=== PATIENT | male | born 1945 | race Caucasian/White ===

== ENCOUNTER → 2018-04-27 13:09 | Outpatient (CLI) | payer MEDICARE, OTHER, SELFPAY ==
--- NOTE | 2018-04-27 | DI.NM.S_ITS ---
PROCEDURE: NM SAVANAH PERF SPECT R&S PHARM Rest and pharmacological stress myocardial perfusion SPECT with gated imaging and ejection fraction RADIOPHARMACEUTICAL: 24.7 mCi Tc-99m tetrafosmin IV at rest and 26.5 mCi Tc-99m tetrafosmin IV at peak effect of pharmacological stress. [id number] was performed. INDICATIONS: CHEST DISCOMFORT TECHNIQUE: Radiopharmaceutical was injected at peak stress test, and also at rest. SPECT images were obtained. SPECT myocardial perfusion images were displayed in short axis, horizontal long axis, and vertical long axis views. Gated images were reviewed using [employer]irma[employer] software. COMPARISON: None. CARDIAC STRESS: A pharmacologic stress test was performed under the supervision of an attending staff, using an infusion of lexiscan 0.4mg IV X1. Hemodynamic data: There is normal blood pressure and heart rate response to pharmacologic stress. Symptoms: The patient denied anginal chest pain. EKG: Atrial fibrillation present during the study. No diagnostic changes of ischemia with lexiscan. FINDINGS: Raw data: There is good myocardial uptake of radiotracer. No significant motion artifacts. Left ventricle function: Gated images show global hypokinesis and apical septal akinesis. No transient ischemic dilation. Left ventricle resting end diastolic volume is 223 mL. Left ventricle stress ejection fraction is moderately reduced at 39%; normal range is above 45%. Myocardial perfusion: There is normal distribution of activity in the right and left ventricular myocardium. No fixed or reversible perfusion defects. IMPRESSION: Low risk, normal pharmaceutical stress test from ischemia standpoint. Recommend Echo to determine LV function and wall motion. 1) No perfusion evidence of ischemia/infarction. 2) Dilated left ventricle (end-diastolic volume of 223cc) with moderately reduced systolic function (EF 39%). Apical septum is akinetic and rest of the LV is globally hypokinetic. Recommend echo for more accurate cardiac structure. 3) No ECG evidence of ischemia. Atrial fibrillation present during the entire study. 4) No angina during the study. 5) No prior nuclear stress test available for comparison. Dictated by: Denisha Steward MD on 04/28/2018 at 13:21 Approved by: Denisha Steward MD on 04/28/2018 at 13:26
--- NOTE | 2018-04-27 14:58 | PM.TREADMILL ---
Cardiac Stress Test Report Referral & Results Date Patient Seen: 04/27/18 Requesting provider: Lv Zambrano Indication: AFib Rest ECG: Atrial fibrillation with controlled response and poor R-wave progression Procedure Note: After both written and verbal informed consent the patient had an IV started by the diagnostic imaging RN and then was hooked up to the treadmill monitoring system. The patient was then injected with the Claudia scan material. The Cardiolite was then immediately administered. The patient spent an additional 2-3 minutes exercising upper extremities with squeeze balls. The patient had a normal response to all infused materials. Of note his peak heart rate was in excess of 150. Impression: Await perfusion imaging regarding ischemia Please note: Actual ECG tracings can be found in the PACS system.
== END ==
PROVIDERS: PCP Internal Medicine; Visit Provider Internal Medicine Cardiovascular Disease
DX: R07.89 Other chest pain (principal); I48.91 Unspecified atrial fibrillation
CPT/HCPCS: 78452; 93016; 93017; 93018; A9502; J2785

== ENCOUNTER → 2018-04-28 08:10 | Outpatient (CLI) | payer MEDICARE, OTHER, SELFPAY ==
--- NOTE | 2018-04-28 | DI.ECHO.S_ITS ---
[place] +---------+ Hospital +---------+ : : [address] : : : : [phone] : : : : Phone: [phone] +---------+ Echocardiogram Report + + :Name: DOT KELLY Study Date: 04/28/2018 Height: 72 in : :[facility] Exam Location: [facility] Weight: 268 lb : : Gender: Male BSA: 2.4 m2 : :: 1945 Age: 72 yrs BP: 126/78 mmHg: :Reason For Study: Chest Discomfort : :Ordering Physician: Emmie : :[place] Performed By: Joellen Conti : :Referring: EMMIE DUVALL : + + Interpretation Summary 1) Mildly enlarged left ventricle with mildl concentric hypertrophy and mildly to moderately reduced function (EF about 40%). 2) There is mild to moderate global hypokinesis of the left ventricle. 3) Mildlly enlarged right ventricle with mildly reduced function. 4) The left atrium is severely dilated. 5) Mild to moderate mitral regurgitation. 6) The aortic root is mildly dilated at 4.3cm. 7) Compared to the Echo done 04/07/2013, LVEF has decreased from 65-70% to about 40% on this study. Procedure: A two-dimensional transthoracic echocardiogram with color flow and Doppler was performed. The study quality was technically adequate. Comparison is made with the echocardiogram of 04/07/2013. The patient was in atrial fibrillation with heart rates between 63-95 bpm during the exam. Left Ventricle: The left ventricle is mildly dilated. There is mild concentric left ventricular hypertrophy. Left ventricular ejection fraction is estimated to be 40 +/- 5%. (Difficult to assess ejection fraction due to beat- to-beat variability from atrial fibrillation). There is mild to moderate global hypokinesis of the left ventricle. Diastolic function could not be accurately assessed due to atrial fibrillation. Right Ventricle: The right ventricle is mildly dilated. Right ventricular systolic function is mildly reduced. Atria: The left atrium is severely dilated. The right atrium is mildly dilated. The interatrial septum is intact with no evidence for an atrial septal defect. Mitral Valve: The mitral valve leaflets appear mildly thickened, but open well. There is mild mitral annular calcification. There is mild to moderate mitral regurgitation. Aortic Valve: The aortic valve is trileaflet. The aortic valve is moderately calcified. There is no hemodynamically significant valvular aortic stenosis. There is mild aortic regurgitation. Tricuspid Valve: The tricuspid valve is normal in structure and function. There is mild tricuspid regurgitation. The right ventricular systolic pressure is estimated at 22 mmHg assuming a right atrial pressure of 3 mm Hg. Pulmonic Valve: The pulmonic valve is not well visualized. There is a trace or physiologic amount of pulmonic regurgitation. Great Vessels: The aortic root is mildly dilated. The ascending aorta is normal in size. The IVC is of normal diameter and collapses greater than 50% with a sniff. This suggests a low right atrial pressure of 3 mm Hg. Pericardium/ Pleura There is no pericardial effusion. There is an anterior echo-free space consistent with a fat pad. There is no pleural effusion. MMode/2D Measurements & Calculations LVIDd: 6.0 cm LVOT diam: 2.5 cm LVIDs: 4.4 cm asc Aorta Diam: 4.3 cm FS: 26.2 % Ao Arch Diam (Prox Trans): 3.4 cm IVSd: 1.3 cm LVPWd: 1.4 cm LV helms. diameter/BSA (cm/m^2): 2.5 LV sys. diameter/BSA (cm/m^2): 1.8 LA A2 area: 37.0 cm2 RA long axis: 7.4 cm LA A4 area: 41.0 cm2 RA area: 25.3 cm2 LA length (vol): 7.5 cm RA vol: 73.4 ml LA vol: 171.7 ml RA : 30.4 ml/m2 LA vol index: 71.2 ml/m2 TAPSE: 1.8 cm Doppler Measurements & Calculations Ao V2 max: 167.1 cm/sec LVOT Max Dominic: 102.2 cm/sec Ao V2 mean: 112.4 cm/sec LV V1 max P.2 mmHg Ao max P.2 mmHg LV V1 VTI: 18.8 cm Ao mean P.9 mmHg SHELBIE(I,D): 2.8 cm2 Ao V2 VTI: 33.0 cm SHELBIE(V,D): 3.1 cm2 sev ratio: 0.57 SHELBIE indexed to BSA (cm^2/m^2): 1.2 TR max dominic: 216.0 cm/sec TR max P.7 mmHg Reading Physician:12:24 PM
== END ==
PROVIDERS: PCP Internal Medicine; Visit Provider Internal Medicine Cardiovascular Disease
DX: R07.89 Other chest pain (principal); I08.3 Combined rheumatic disorders of mitral, aortic and tricuspid valves
CPT/HCPCS: 93306

== ENCOUNTER → 2018-09-11 13:49 | Outpatient (CLI) | payer MEDICARE, OTHER, SELFPAY ==
--- NOTE | 2018-09-11 | DI.ECHO.S_ITS ---
[place] +---------+ Hospital +---------+ : : [address] [place] [address] : : : : [phone] : : : : Phone: [phone] +---------+ Echocardiogram Report + + :Name: DOT KELLY Study Date: 09/11/2018 Height: 74 in : :[facility] Exam Location: [facility] Weight: 259 lb : : Gender: Male BSA: 2.4 m2 : :: 1945 Age: 73 yrs BP: 137/60 mmHg: :Reason For Study: DILATED CM : : Performed By: Toño Barclay : :Referring: EMMIE DUVALL : + + Interpretation Summary The left ventricle is mildly dilated. This is decreased compared to the previous study. The ejection fraction is estimated to be 55-60%. Compared to the prior exam, the left ventricular function is improved. The right ventricle is mildly dilated. The right ventricular systolic function is normal. No significant valvular pathology seen. The ascending aorta is moderately enlarged. This is unchanged compared to the previous study. Mild atherosclerotic plaque(s) in the aortic arch. In this study patient is in sinus rhythm. No A. fib seen. Procedure: A two-dimensional transthoracic echocardiogram with color flow and Doppler was performed. The study quality was technically adequate. Comparison is made with the echocardiogram of 04/28/18. The patient was in normal sinus rhythm during the exam. Left Ventricle: There is normal left ventricular wall thickness. The left ventricle is mildly dilated. This is decreased compared to the previous study. The ejection fraction is estimated to be 55-60%. Compared to the prior exam, the left ventricular function is improved. Septal motion is consistent with conduction abnormality. Diastolic parameters suggest a relaxation abnormality of the left ventricle, consistent with probable normal filling pressures. Right Ventricle: The right ventricle is mildly dilated. The right ventricular systolic function is normal. Atria: Both atria are moderately dilated. The left atrium has mildly decreased in size since the prior echo exam. The interatrial septum is intact with no evidence for an atrial septal defect. Mitral Valve: There is mild mitral annular calcification. There is trace mitral regurgitation. Compared to the prior echo study, there has been a decrease in the severity of mitral regurgitation. Aortic Valve: The aortic valve is trileaflet. The aortic valve is moderately calcified. Leaflet mobility is mildly reduced. There is no hemodynamically significant valvular aortic stenosis. There is trace aortic regurgitation. Compared to the prior echo study, there has been a decrease in the severity of aortic regurgitation. Tricuspid Valve: The tricuspid valve is normal in structure and function. Pulmonary artery pressures cannot be estimated because of the lack of a measurable TR jet velocity. There is trace tricuspid regurgitation. Compared to the prior echo exam, there has been a decrease in TR severity. Pulmonic Valve: The pulmonic valve is not well seen, but is grossly normal. There is trace pulmonic regurgitation. Great Vessels: The aortic root is normal size. The ascending aorta is moderately enlarged. This is unchanged compared to the previous study. Mild atherosclerotic plaque(s) in the aortic arch. The pulmonary artery is normal size. The IVC is of normal diameter and collapses greater than 50% with a sniff. This suggests a low right atrial pressure of 3 mm Hg. Pericardium/ Pleura There is no pericardial effusion. There is no pleural effusion. MMode/2D Measurements & Calculations LVIDd: 5.8 cm LVOT diam: 2.5 cm LVIDs: 3.6 cm Ao root diam: 4.2 cm FS: 37.5 % Aortic Jxn: 3.5 cm EPSS: 1.2 cm asc Aorta Diam: 4.3 cm IVSd: 1.1 cm Ao Arch Diam (Prox Trans): 3.2 cm LVPWd: 1.2 cm LV helms. diameter/BSA (cm/m^2): 2.4 LV sys. diameter/BSA (cm/m^2): 1.5 LA dimension: 4.0 cm RA long axis: 6.3 cm LA A2 area: 31.9 cm2 RA area: 27.8 cm2 LA A4 area: 25.7 cm2 RA vol: 103.8 ml LA length (vol): 6.5 cm RA : 42.8 ml/m2 LA vol: 107.6 ml IVC diam: 1.3 cm LA vol index: 44.4 ml/m2 RVD1 (basal): 4.8 cm RVD2 (mid): 4.0 cm Doppler Measurements & Calculations Ao V2 max: 235.0 cm/sec LVOT Max Dominic: 107.5 cm/sec Ao V2 mean: 180.4 cm/sec LV V1 max P.6 mmHg Ao max P.1 mmHg LV V1 VTI: 24.0 cm Ao mean P.8 mmHg SHELBIE(I,D): 2.3 cm2 Ao V2 VTI: 54.0 cm SHELBIE(V,D): 2.3 cm2 sev ratio: 0.44 SHELBIE indexed to BSA (cm^2/m^2): 0.93 MV E max dominic: 66.1 cm/sec PA V2 max: 91.0 cm/sec MV A max dominic: 82.4 cm/sec PA V2 mean: 68.4 cm/sec MV E/A: 0.80 PA mean P.0 mmHg Med Peak E' Dominic: 6.3 cm/sec PA pr(Accel): 44.1 mmHg E/E' med: 10.5 PA Accel Time: 0.08 sec Lat Peak E' Dominic: 8.2 cm/sec E/E' lat: 8.1 E/e' average: 9.3 MV dec time: 0.26 sec SV(LVOT): 121.8 ml Reading Physician:ASHLYN
== END ==
PROVIDERS: PCP Internal Medicine; Visit Provider Internal Medicine Cardiovascular Disease
DX: I42.0 Dilated cardiomyopathy (principal); I70.0 Atherosclerosis of aorta; I77.810 Thoracic aortic ectasia
CPT/HCPCS: 93306

== ENCOUNTER → 2018-11-24 14:41 | Outpatient (CLI) | payer MEDICARE, OTHER, SELFPAY ==
--- NOTE | 2018-12-01 16:22 | PM.PFT.1 ---
Pulmonary Function Test Referral & Results Date Patient Seen: 11/24/18 Requesting provider: Lv Zambrano Indication: R06.09 Results: The spirometry demonstrates an FVC of 4.44 L which is benign % of predicted. The FEV1 was measured at 3.42 L which is 94% of predicted. The FEV1/FVC ratio was 77 which is 105% of predicted. Following the administration of bronchodilator there was no appreciable change. Lung volumes show an SVC of 4.55 L which is 89% of predicted. The diffusing capacity was measured at 29.8 which is 78% of predicted. No hemoglobin value was provided, so no correction for potential anemia could be made, if appropriate. The maximum voluntary ventilation was normal Interpretation: This study demonstrates probably normal spirometry. There is very minimal reduction in diffusing capacity suggesting some element of disease at the capillary alveolar level, less patient is anemic. Clinical correlation suggested
== END ==
PROVIDERS: PCP Internal Medicine; Visit Provider Internal Medicine Cardiovascular Disease
DX: R06.09 Other forms of dyspnea (principal); I42.0 Dilated cardiomyopathy; Z79.899 Other long term (current) drug therapy
CPT/HCPCS: 94060; 94726; 94729

== ENCOUNTER → 2019-05-01 11:01 | Outpatient (CLI) | payer MEDICARE, OTHER, SELFPAY ==
--- NOTE | 2019-05-01 | DI.RAD.S_ITS ---
PROCEDURE: XR CHEST 2V INDICATIONS: On amiodarone therapy TECHNIQUE: 2 views of the chest were acquired. COMPARISON: [facility], , CHEST 1 VIEW, 04/06/2013, 14:28. FINDINGS: Surgical changes and devices: None. Lungs and pleura: Lungs are clear. No pleural effusions or pneumothorax. Mediastinum: Mediastinal contours are normal. Heart size is normal. Bones and chest wall: No suspicious bony abnormalities. Soft tissues appear unremarkable. IMPRESSION: No acute disease Dictated by: Jett Anderson M.D. on 05/01/2019 at 12:04 Approved by: Jett Anderson M.D. on 05/01/2019 at 12:04
== END ==
PROVIDERS: PCP Internal Medicine; Visit Provider Internal Medicine Cardiovascular Disease
DX: Z79.899 Other long term (current) drug therapy (principal)
CPT/HCPCS: 71046

== ENCOUNTER → 2020-01-30 10:53 | Outpatient (CLI) | payer MEDICARE, OTHER, SELFPAY ==
--- NOTE | 2020-01-30 | DI.RAD.S_ITS ---
PROCEDURE: XR CHEST 2V INDICATIONS: Long-term drug therapy TECHNIQUE: 2 views of the chest were acquired. COMPARISON: [facility], , CHEST 1 VIEW, 04/06/2013, 14:28. [facility], , XR CHEST 2V, 05/01/2019, 11:07. FINDINGS: Surgical changes and devices: None. Lungs and pleura: Lungs are clear. No pleural effusions or pneumothorax. Mediastinum: The cardiac contours are within normal limits. The aorta demonstrates calcification and tortuosity. Bones and chest wall: Age-appropriate bony degenerative changes are seen. No suspicious bony abnormalities. Soft tissues appear unremarkable. IMPRESSION: Clear lungs. Dictated by: Mohsen Craft M.D. on 01/30/2020 at 11:03 Approved by: Mohsen Craft M.D. on 01/30/2020 at 11:04
== END ==
PROVIDERS: PCP Internal Medicine; Referring Provider Internal Medicine Cardiovascular Disease; Visit Provider Internal Medicine Cardiovascular Disease
DX: I70.0 Atherosclerosis of aorta (principal); Z79.899 Other long term (current) drug therapy
CPT/HCPCS: 71046

== ENCOUNTER → 2020-07-15 11:34 | Outpatient (CLI) | payer MEDICARE, OTHER, SELFPAY ==
--- NOTE | 2020-07-15 | DI.RAD.S_ITS ---
PROCEDURE: XR CHEST 2V INDICATIONS: AMIODARONE THERAPY TECHNIQUE: 2 views of the chest were acquired. COMPARISON: [facility], CR, XR CHEST 2V, 01/30/2020, 9:54. [facility], CR, XR CHEST 2V, 05/01/2019, 11:07. FINDINGS: Surgical changes and devices: None. Lungs and pleura: Lungs are clear. No pleural effusions or pneumothorax. Mediastinum: Mediastinal contours are normal. Heart size is normal. Bones and chest wall: No suspicious bony abnormalities. Soft tissues appear unremarkable. IMPRESSION: Normal for age, no evidence of amiodarone induced pulmonary fibrosis.. Dictated by: Walter Salas M.D. on 07/15/2020 at 12:32 Approved by: Walter Salas M.D. on 07/15/2020 at 12:33
== END ==
PROVIDERS: PCP Internal Medicine; Referring Provider Internal Medicine Cardiovascular Disease; Visit Provider Internal Medicine Cardiovascular Disease
DX: Z79.899 Other long term (current) drug therapy (principal)
CPT/HCPCS: 71046

== ENCOUNTER → 2021-01-09 11:28 | Outpatient (CLI) | payer OTHER, SELFPAY ==
--- NOTE | 2021-01-09 | DI.RAD.S_ITS ---
PROCEDURE: XR CHEST 2V INDICATIONS: Other intermediate (current) drug therapy TECHNIQUE: 2 views of the chest were acquired. COMPARISON: [facility], CR, XR CHEST 2V, 07/15/2020, 11:52. FINDINGS: Surgical changes and devices: None. Lungs and pleura: Lungs are clear. No pleural effusions or pneumothorax. Mediastinum: Mediastinal contours are normal. Heart size is normal. Bones and chest wall: No suspicious bony abnormalities. Soft tissues appear unremarkable. IMPRESSION: No acute cardiopulmonary disease and no pulmonary fibrosis identified. Dictated by: Bear Hart [facility] Interpreted: Genevieve Ramos MD on 01/09/2021 at 14:38 Transcribed by: ARLEN on 01/09/2021 at 14:39 Approved by: Genevieve Ramos M.D. on 01/09/2021 at 17:07
== END ==
PROVIDERS: PCP Internal Medicine; Referring Provider Internal Medicine Cardiovascular Disease; Visit Provider Internal Medicine Cardiovascular Disease
DX: Z79.899 Other long term (current) drug therapy (principal)
CPT/HCPCS: 71046

== ENCOUNTER → 2021-02-16 08:34 | Outpatient (CLI) | payer MEDICARE, OTHER, SELFPAY ==
--- NOTE | 2021-02-16 08:40 | DI.ECHO.S_ITS ---
[place] +---------+ Hospital +---------+ : : [address] : [place] : : : : [id number] : : : : Phone: [phone] +---------+ Echocardiogram Report + + :Name: DOT KELLY Study Date: 02/16/2021 Height: 74 in : :[facility] ReadingLocation: Weight: 295 lb : : Gender: Male BSA: 2.6 m2 : :: 1945 Age: 75 yrs BP: 159/84 mmHg: :Reason For Study: ATRIAL FIBRILLATION : :Ordering Physician: : :EMMIE DUVALL Performed By: Bushra Nam : :Referring: EMMIE DUVALL : + + Interpretation Summary The left ventricle is mildly dilated. The ejection fraction is estimated to be 55-60%. There has been no significant change in LVEF since the previous exam. The right ventricle is borderline dilated. The right ventricular systolic function is normal. The aortic valve is moderately calcified. There is moderately reduced leaflet mobility. The peak aortic velocity is 3.16 m/sec. The aortic valve mean gradient is 19 mmHg. SHELBIE(V,D): 2.1 cm2, LVOT diameter measured at 2.7cm which could be underestimated SHELBIE measurement. sev ratio: 0.40 There is mild to moderate aortic stenosis. Compared to the prior echo study, there has been an increase in the severity of aortic stenosis. Overall no critical aortic stenosis. There is mild aortic regurgitation. The ascending aorta is moderately enlarged. 4.2 cm in diameter. Previously it was 4.3 cm. Mild atherosclerotic plaque(s) in the aortic arch. There is mild luminal irregularity and echogenicity in the abdominal aorta, suggestive of aortic atherosclerotic disease. Procedure: A two-dimensional transthoracic echocardiogram with color flow and Doppler was performed. The study quality was technically adequate. Comparison is made with the echocardiogram of 09/11/2018. The patient was in sinus rhythm with heart rates between 67-73 bpm during the exam. Left Ventricle: There is mild concentric left ventricular hypertrophy. The left ventricle is mildly dilated. There is no thrombus. The ejection fraction is estimated to be 55-60%. There has been no significant change since the previous exam. Septal motion is consistent with conduction abnormality. Diastolic parameters suggest a relaxation abnormality of the left ventricle, consistent with probable normal filling pressures. Right Ventricle: The right ventricle is borderline dilated. The right ventricular systolic function is normal. Atria: The left atrium is mildly dilated. The left atrium has mildly decreased in size since the prior echo exam. Right atrial size is normal. Mitral Valve: The mitral valve leaflets appear borderline thickened, but open well. There is mild mitral annular calcification. There is trace mitral regurgitation. Aortic Valve: The aortic valve is moderately calcified. There is moderately reduced leaflet mobility. The aortic valve is not well visualized. The peak aortic velocity is 3.16 m/sec. The aortic valve mean gradient is 19 mmHg. There is mild to moderate aortic stenosis. Compared to the prior echo study, there has been an increase in the severity of aortic stenosis. There is mild aortic regurgitation. Tricuspid Valve: The tricuspid valve is normal. There is trace tricuspid regurgitation. Pulmonary artery pressures cannot be estimated because of the lack of a measurable TR jet velocity but the IVC suggests a CVP of around 3 mmHg. Pulmonic Valve: The pulmonic valve is not well visualized. There is trace pulmonic regurgitation. Great Vessels: The aortic root is borderline dilated. The ascending aorta is moderately enlarged. Mild atherosclerotic plaque(s) in the aortic arch. There is mild luminal irregularity and echogenicity in the abdominal aorta, suggestive of aortic atherosclerotic disease. The IVC is of normal diameter and collapses greater than 50% with a sniff. This suggests a low right atrial pressure of 3 mm Hg. Pericardium/ Pleura There is no pericardial effusion. There is no pleural effusion. MMode/2D Measurements & Calculations LVIDd: 5.9 cm LVOT diam: 2.7 cm LVIDs: 4.2 cm Ao root diam: 4.0 cm FS: 27.8 % asc Aorta Diam: 4.2 cm IVSd: 1.2 cm Ao Arch Diam (Prox Trans): 3.4 cm LVPWd: 1.3 cm LV helms. diameter/BSA (cm/m^2): 2.3 LV sys. diameter/BSA (cm/m^2): 1.7 LA A2 area: 30.5 cm2 RA long axis: 4.8 cm LA A4 area: 21.4 cm2 RA area: 21.1 cm2 LA length (vol): 5.6 cm RA vol: 79.3 ml LA vol: 98.4 ml RA : 30.9 ml/m2 LA vol index: 38.4 ml/m2 IVC diam: 1.4 cm RVD1 (basal): 4.1 cm TAPSE: 2.1 cm Doppler Measurements & Calculations Ao V2 max: 315.9 cm/sec LVOT Max Dominic: 111.5 cm/sec Ao V2 mean: 199.6 cm/sec LV V1 max P.0 mmHg Ao max P.9 mmHg LV V1 VTI: 22.6 cm Ao mean P.1 mmHg SHELBIE(I,D): 2.3 cm2 Ao V2 VTI: 56.5 cm SHELBIE(V,D): 2.1 cm2 sev ratio: 0.40 SHELBIE indexed to BSA (cm^2/m^2): 0.91 MV E max dominic: 55.2 cm/sec PA pr(Accel): 20.8 mmHg MV A max dominic: 58.3 cm/sec MV E/A: 0.95 Med Peak E' Dominic: 10.3 cm/sec E/E' med: 5.4 Lat Peak E' Dominic: 9.7 cm/sec E/E' lat: 5.7 E/e' average: 5.5 MV dec time: 0.21 sec SV(LVOT): 131.3 ml Reading Physician:04:33 PM
== END ==
PROVIDERS: PCP Internal Medicine; Referring Provider Internal Medicine Cardiovascular Disease; Visit Provider Internal Medicine Cardiovascular Disease
DX: I35.2 Nonrheumatic aortic (valve) stenosis with insufficiency (principal); I77.89 Other specified disorders of arteries and arterioles; I48.91 Unspecified atrial fibrillation; I42.0 Dilated cardiomyopathy
CPT/HCPCS: 93306

== ENCOUNTER → 2021-03-09 11:02 | Outpatient (CLI) | payer MEDICARE, OTHER, SELFPAY ==
[2021-03-09 11:46] LABS: COVID19 -Nasal RAPID Negative (Negative)
== END ==
PROVIDERS: PCP Internal Medicine; Referring Provider Internal Medicine Cardiovascular Disease; Visit Provider Internal Medicine Cardiovascular Disease
DX: Z79.899 Other long term (current) drug therapy (principal)
CPT/HCPCS: 87635; C9803

== ENCOUNTER → 2021-03-09 11:03 | Outpatient (CLI) | payer MEDICARE, OTHER, SELFPAY ==
--- NOTE | 2021-03-11 11:45 | PM.PFT.1 ---
Pulmonary Function Test Referral & Results Date Patient Seen: 03/09/21 Requesting provider: Lv Zambrano Results: The spirometry demonstrates an FVC of 3.89 L which is 80% of predicted. The FEV1 was measured at 3.02 L which is 85% of predicted. The FEV1/FVC ratio was 78 which is 107% of predicted. Following the administration of bronchodilator there was no significant change. Lung volumes show an SVC of 4.17 L which is 82% of predicted. The diffusing capacity was measured at 25.97 which is 68% of predicted. No hemoglobin value was provided, so no correction for potential anemia could be made, if appropriate. The maximum voluntary ventilation was minimally reduced Interpretation: This study demonstrates perhaps very mild obstructive lung disease based on reduction FEV1 although FEV1/FVC ratio was preserved and there is essentially no evidence of benefit following bronchodilator. There is a mild reduction in SVC suggesting mild restrictive lung disease which may explain minimal reduction in FEV1 as well There is a more significant reduction in diffusing capacity suggesting significant disease at the capillary alveolar level Compared to PFTs performed in November 2018, current study shows that spirometry is unchanged essentially, there is a minimal reduction in diffusing capacity compared to previous study however. Clinical correlation suggested
== END ==
PROVIDERS: PCP Internal Medicine; Referring Provider Internal Medicine Cardiovascular Disease; Visit Provider Internal Medicine Cardiovascular Disease
DX: Z79.899 Other long term (current) drug therapy (principal); I10 Essential (primary) hypertension; Z20.822 Contact with and (suspected) exposure to COVID-19; Z87.891 Personal history of nicotine dependence; J98.8 Other specified respiratory disorders
CPT/HCPCS: 87635; 94060; 94726; 94729; C9803

== ENCOUNTER → 2021-08-26 12:37 | Outpatient (CLI) | payer MEDICARE, OTHER, SELFPAY ==
[2021-08-26 13:39] LABS: COVID19 -Nasal RAPID Negative (Negative)
== END ==
PROVIDERS: PCP Internal Medicine; Referring Provider Internal Medicine; Visit Provider Internal Medicine
DX: Z20.822 Contact with and (suspected) exposure to COVID-19 (principal)
CPT/HCPCS: 87635; C9803

== ENCOUNTER → 2021-08-27 06:54 | Outpatient (CLI) | payer MEDICARE, OTHER, SELFPAY ==
--- NOTE | 2021-08-31 09:03 | PM.PFT.1 ---
Pulmonary Function Test Referral & Results Date Patient Seen: 08/27/21 Requesting provider: Lv Zambrano Results: The spirometry demonstrates an FVC of 3.8 L which is 80% of predicted. The FEV1 was measured at 3.07 L which is 87% of predicted. The FEV1/FVC ratio was 79 which is 109% of predicted. Following the administration of bronchodilator there was to 44% improvement in FEF 25-75% Lung volumes show an SVC of 4.18 L which is 82% of predicted. The diffusing capacity was measured at 25.29 which is 67% of predicted. The maximum voluntary ventilation was normal Interpretation: This study demonstrates probably normal spirometry although there is minimal reduction in lung volumes There is also mild reduction in diffusing capacity suggesting element of disease at the capillary alveolar level Compared to PFTs performed in February 2021, current study is essentially unchanged
== END ==
PROVIDERS: PCP Internal Medicine; Referring Provider Internal Medicine Cardiovascular Disease; Visit Provider Internal Medicine Cardiovascular Disease
DX: J44.9 Chronic obstructive pulmonary disease, unspecified (principal); Z79.899 Other long term (current) drug therapy
CPT/HCPCS: 94060; 94726; 94729

== ENCOUNTER → 2022-02-12 10:58 | Outpatient (CLI) | payer MEDICARE, OTHER, SELFPAY ==
[2022-02-12 12:03] LABS: COVID19 -Nasal RAPID Negative (Negative)
== END ==
PROVIDERS: PCP Internal Medicine; Referring Provider Internal Medicine; Visit Provider Internal Medicine
DX: Z20.822 Contact with and (suspected) exposure to COVID-19 (principal)
CPT/HCPCS: 87635; C9803

== ENCOUNTER → 2022-02-12 11:04 | Outpatient (CLI) | payer MEDICARE, OTHER, SELFPAY ==
--- NOTE | 2022-02-17 08:19 | PM.PFT.1 ---
Pulmonary Function Test Referral & Results Date Patient Seen: 02/12/22 Requesting provider: Lv Zambrano Results: The spirometry demonstrates an FVC of 3.63 L which is 75% of predicted. The FEV1 was measured at 2.84 L which is 81% of predicted. The FEV1/FVC ratio was 78 which is 108% of predicted. Following the administration of bronchodilator there was a 20% improvement in FEF 25-75%. Lung volumes show an SVC of 3.91 L which is 77% of predicted. The diffusing capacity was measured at 27.38 which is 72% of predicted. No hemoglobin value was provided, so no correction for potential anemia could be made, if appropriate. The maximum voluntary ventilation was minimally reduced Interpretation: This study demonstrates minimally reduced FEV1 although FEV1/FVC ratio is preserved. There is some limited evidence of benefit following bronchodilator based on improvement in FEF 25-75% as above. This altogether is consistent with the possibility of very mild obstructive lung disease. Lung volumes are minimally reduced based on reduction SVC. This is consistent with minimal restrictive lung disease There is a mild reduction in diffusing capacity suggesting some element of disease at the capillary alveolar level Altogether this would be consistent with a diagnosis of very mild COPD Compared to PFTs performed in August 2021, current study is essentially unchanged
== END ==
PROVIDERS: PCP Internal Medicine; Referring Provider Internal Medicine Cardiovascular Disease; Visit Provider Internal Medicine Cardiovascular Disease
DX: Z79.899 Other long term (current) drug therapy (principal); Z87.891 Personal history of nicotine dependence; Z20.822 Contact with and (suspected) exposure to COVID-19; J98.8 Other specified respiratory disorders
CPT/HCPCS: 87635; 94060; 94726; 94729; C9803

== ENCOUNTER → 2022-09-27 12:04 | Outpatient (CLI) | payer MEDICARE, OTHER, SELFPAY ==
--- NOTE | 2022-09-27 | DI.ECHO.S_ITS ---
[facility] +---------+ [facility] +---------+ : : [address] : [address] [address] : : : : [id number] : : : : Phone: [phone]---------+ Echocardiogram Report + + :Name: DOT KELLY Study Date: 09/27/2022 Height: 74 in : :[facility] : Weight: 295 lb : : Gender: Male BSA: 2.6 m2 : :: 1945 Age: 77 yrs BP: 172/85 mmHg: :Reason For Study: Nonrheumatic aortic stenosis : :Ordering Physician: Emmie : :Kiko Duvall Performed By: Bushra Marte : :Referring: EMMIE DUVALL : + + Interpretation Summary 1) Moderately enlarged left ventricle with mildly increased left ventricular thickness and normal systolic function (EF 55-60%). 2) There are no obvious focal wall motion abnormalities noted but poor endocardial definition reduces the sensitivity for the detection of such. 3) Mildly to moderate enlarged right ventricle with normal function. 4) There is moderate aortic stenosis (valve area 1.2cm2, mean gradient 23mmHg, severity ratio 0.3). 5) Hypertension present during the study (BP 172/85mmHg). 6) Compared to the Echo done 02/16/2021, LV is more enlarged on this study. Procedure: A two-dimensional transthoracic echocardiogram with color flow and Doppler was performed. The study quality was technically difficult. The patient was in sinus rhythm with heart rates between 60-68 bpm during the exam. Left Ventricle: The left ventricle is moderately dilated. Left ventricular wall thickness is mildly increased. The ejection fraction is estimated to be 55-60%. There are no obvious focal wall motion abnormalities noted but poor endocardial definition reduces the sensitivity for the detection of such. Diastolic parameters suggest a relaxation abnormality of the left ventricle, consistent with probable normal filling pressures. Right Ventricle: The right ventricle is mild to moderately dilated. Right ventricular size has increased since the prior echo exam. The right ventricular systolic function is normal. Atria: The left atrium is moderately dilated. The right atrium is mild to moderately dilated. There is no Doppler evidence for an interatrial shunt. Mitral Valve: The mitral valve leaflets are mildly calcified. There is mild mitral regurgitation. Aortic Valve: The aortic valve is trileaflet. The aortic valve is moderately calcified. There is moderately reduced leaflet mobility. There is moderate aortic stenosis. There has been no significant change since the previous study. There is trace aortic regurgitation. Tricuspid Valve: The tricuspid valve is normal in structure and function. No tricuspid regurgitation. Comparison with the previous study is not possible because this was unable to be assessed on the previous study. Pulmonic Valve: The pulmonic valve leaflets are thin and pliable; valve motion is normal. There is a trace or physiologic amount of pulmonic regurgitation. Great Vessels: The aortic root is borderline dilated. The ascending aorta is mildly enlarged. The inferior vena cava was not well visualized. Pericardium/ Pleura There is no pericardial effusion. There is no pleural effusion. MMode/2D Measurements & Calculations LVIDd: 6.4 cm LVOT diam: 2.2 cm LVIDs: 4.3 cm Ao root diam: 4.2 cm FS: 32.8 % asc Aorta Diam: 4.1 cm EPSS: 0.90 cm IVSd: 1.4 cm LVPWd: 1.1 cm LV helms. diameter/BSA (cm/m^2): 2.5 LV sys. diameter/BSA (cm/m^2): 1.7 LA dimension: 4.3 cm RA long axis: 6.1 cm LA A2 area: 29.4 cm2 RA area: 26.0 cm2 LA A4 area: 35.1 cm2 RA vol: 94.0 ml LA length (vol): 6.7 cm RA : 36.7 ml/m2 LA vol: 130.5 ml IVC diam: 2.9 cm LA vol index: 50.9 ml/m2 RVD1 (basal): 5.2 cm LVLs ap4: 7.4 cm RVD2 (mid): 3.5 cm LVLd ap2: 9.1 cm RV Mid_phl: 3.5 cm LVLs ap2: 6.1 cm TAPSE_phl: 2.4 cm Doppler Measurements & Calculations Ao V2 max: 330.0 cm/sec LVOT Max Dominic: 92.0 cm/sec Ao V2 mean: 227.0 cm/sec LV V1 max P.4 mmHg Ao max P.0 mmHg LV V1 VTI: 23.2 cm Ao mean P.0 mmHg SHELBIE(I,D): 1.2 cm2 Ao V2 VTI: 76.5 cm SHELBIE(V,D): 1.1 cm2 sev ratio: 0.30 SHELBIE indexed to BSA (cm^2/m^2): 0.45 MV E max dominic: 83.6 cm/sec PA V2 max: 91.6 cm/sec MV A max dominic: 87.4 cm/sec PA V2 mean: 63.9 cm/sec MV E/A: 0.96 PA mean P.0 mmHg Med Peak E' Dominic: 7.1 cm/sec E/E' med: 11.8 Lat Peak E' Dominic: 9.8 cm/sec E/E' lat: 8.6 E/e' average: 10.2 MV dec time: 0.23 sec MVA(VTI): 2.5 cm2 MV V2 mean: 65.6 cm/sec SV(LVOT): 88.2 ml MV mean P.0 mmHg MV V2 VTI: 35.0 cm AV VR_phl: 0.28 MV P1/2t-pr_phl: 68.0 msec SHELBIE(VTI)/BSA_phl: 0.45 Reading Physician:02:23 PM
== END ==
PROVIDERS: PCP Internal Medicine; Referring Provider Internal Medicine Cardiovascular Disease; Visit Provider Internal Medicine Cardiovascular Disease
DX: I08.0 Rheumatic disorders of both mitral and aortic valves (principal); I77.89 Other specified disorders of arteries and arterioles
CPT/HCPCS: 93306

== ENCOUNTER → 2022-09-29 09:01 | Outpatient (CLI) | payer MEDICARE, OTHER, SELFPAY ==
--- NOTE | 2022-10-01 07:39 | PM.PFT.1 ---
Pulmonary Function Test Referral & Results Date Patient Seen: 09/29/22 Requesting provider: Lv Zambrano Results: The spirometry demonstrates an FVC of 3.22 L which is 67% of predicted. The FEV1 was measured at 2.51 L which is 72% of predicted. The FEV1/FVC ratio was 78 which is 108% of predicted. Following the administration of bronchodilator there was 11% improvement in FEV1 and a 78% improvement in FEF 25-75%. Lung volumes show an SVC of 3.87 L which is 77% of predicted. The diffusing capacity was measured at 25.06 which is 66% of predicted. The maximum voluntary ventilation was normal Interpretation: This study demonstrates probably mild to moderate obstructive lung disease based on reduction FEV1. There is some evidence of benefit following bronchodilator particularly small airway flow as noted above based on improvement in FEF 25-75% There is a mild reduction in lung volumes suggesting mild restrictive lung disease is also present in this may explain some of the abnormality of the FEV1 above There is a [id number]-[id number] reduction diffusing capacity suggesting element of disease at the capillary alveolar level Compared to PFTs performed in January 2022, current study shows decline in FEV1 and slight decline in diffusing capacity Clinical correlation suggested
== END ==
PROVIDERS: PCP Internal Medicine; Referring Provider Internal Medicine Cardiovascular Disease; Visit Provider Internal Medicine Cardiovascular Disease
DX: Z79.899 Other long term (current) drug therapy (principal); Z87.891 Personal history of nicotine dependence; J98.8 Other specified respiratory disorders
CPT/HCPCS: 94060; 94726; 94729

== ENCOUNTER → 2023-05-06 11:23 | Outpatient (CLI) | payer MEDICARE, OTHER, SELFPAY | PROVIDERS: PCP Internal Medicine; Referring Provider Internal Medicine Cardiovascular Disease; Visit Provider Internal Medicine Cardiovascular Disease | DX: Z79.899 Other long term (current) drug therapy (principal); Z87.891 Personal history of nicotine dependence; J98.8 Other specified respiratory disorders | CPT/HCPCS: 94060; 94726; 94729 ==

== ENCOUNTER → 2023-07-15 13:24 | Outpatient (CLI) | payer MEDICARE, OTHER, SELFPAY ==
--- NOTE | 2023-07-15 | DI.ECHO.S_ITS ---
[place] +---------+ Hospital +---------+ : : [address] : [place] [address] : : : : [phone] : : : : Phone: [phone]---------+ Echocardiogram Report + + :Name: DOT KELLY Study Date: 07/15/2023 Height: 74 in : :[facility] ReadingLocation: Weight: 295 lb : : Gender: Male BSA: 2.6 m2 : :: 1945 Age: 78 yrs BP: 180/89 mmHg: :Reason For Study: AORTIC VALVE STENOSIS : :Ordering Physician: JADIEL, : :EMMIE Performed By: Bushra Nam : :Referring: EMMIE DUVALL : + + Interpretation Summary The left ventricle is moderately dilated. The ejection fraction is estimated to be 55-60%. Diastolic function could not be accurately assessed due to contradictory data. The left atrium is moderately dilated. The right ventricle is normal in size and function. There is moderate aortic stenosis. The ascending aorta is mildly enlarged, 4.0 cm. Compared to the prior study dated 09/27/2022, there is been a slight increase in the aortic valve gradient however the degree of stenosis is still moderate. Procedure: A two-dimensional transthoracic echocardiogram with color flow and Doppler was performed. The study quality was technically adequate. Comparison is made with the echocardiogram of 09/27/2022. The patient was in sinus rhythm with heart rates between 68-76 bpm during the exam. Left Ventricle: The left ventricle is moderately dilated. There is mild concentric left ventricular hypertrophy. The ejection fraction is estimated to be 55-60%. Diastolic function could not be accurately assessed due to contradictory data. Right Ventricle: The right ventricle is normal in size and function. Atria: The left atrium is moderately dilated. The right atrium is borderline dilated. There is no Doppler evidence for an interatrial shunt. Mitral Valve: There is mild mitral annular calcification. The mitral valve leaflets are mildly calcified. There is trace mitral regurgitation. Aortic Valve: The aortic valve is moderately calcified. The peak aortic velocity is 3.5 m/sec. The aortic valve mean gradient is 29 mmHg. The dimensionles ineex is 0.37. There is moderate aortic stenosis. No aortic regurgitation is present. Tricuspid Valve: The tricuspid valve is normal in structure and function. There is trace tricuspid regurgitation. Pulmonary artery pressures cannot be estimated because of the lack of a measurable TR jet velocity. Pulmonic Valve: The pulmonic valve is not well visualized. There is no pulmonic valvular regurgitation. Great Vessels: The aortic root is borderline dilated. The ascending aorta is mildly enlarged. The inferior vena cava was not visualized. Pericardium/ Pleura There is no pericardial effusion. There is no pleural effusion. MMode/2D Measurements & Calculations LVIDd: 6.5 cm LVOT diam: 2.5 cm LVIDs: 4.8 cm Ao root diam: 4.1 cm FS: 26.7 % asc Aorta Diam: 4.0 cm IVSd: 1.1 cm Ao Arch Diam (Prox Trans): 3.1 cm LVPWd: 1.2 cm LV helms. diameter/BSA (cm/m^2): 2.5 LV sys. diameter/BSA (cm/m^2): 1.9 LA A2 area: 35.2 cm2 RA long axis: 6.0 cm LA A4 area: 28.6 cm2 RA area: 21.6 cm2 LA length (vol): 6.8 cm RA vol: 65.7 ml LA vol: 126.3 ml RA : 25.6 ml/m2 LA vol index: 49.3 ml/m2 RVD1 (basal): 3.8 cm RVD2 (mid): 2.5 cm TAPSE: 1.7 cm Doppler Measurements & Calculations Ao V2 max: 345.1 cm/sec LVOT Max Dominic: 114.2 cm/sec Ao V2 mean: 230.9 cm/sec LV V1 max P.2 mmHg Ao max P.9 mmHg LV V1 VTI: 25.9 cm Ao mean P.6 mmHg SHELBIE(I,D): 1.8 cm2 Ao V2 VTI: 69.9 cm SHELBIE(V,D): 1.6 cm2 sev ratio: 0.37 SHELBIE indexed to BSA (cm^2/m^2): 0.68 MV E max dominic: 86.9 cm/sec PA V2 max: 132.0 cm/sec MV A max dominic: 87.6 cm/sec PA V2 mean: 86.8 cm/sec MV E/A: 0.99 PA mean P.4 mmHg Med Peak E' Dominic: 12.0 cm/sec PA pr(Accel): 41.3 mmHg E/E' med: 7.3 Lat Peak E' Dominic: 12.9 cm/sec E/E' lat: 6.7 E/e' average: 7.0 MV dec time: 0.28 sec SVLVOT): 122.6 ml Reading Physician:03:23 PM
== END ==
PROVIDERS: PCP Internal Medicine; Referring Provider Internal Medicine Cardiovascular Disease; Visit Provider Internal Medicine Cardiovascular Disease
DX: I35.0 Nonrheumatic aortic (valve) stenosis (principal); I51.7 Cardiomegaly
CPT/HCPCS: 93306

== ENCOUNTER → 2023-11-03 11:23 | Outpatient (CLI) | payer MEDICARE, OTHER, SELFPAY | LOC: RESP 11:24 | PROVIDERS: PCP Internal Medicine; Referring Provider Internal Medicine Cardiovascular Disease; Visit Provider Internal Medicine Cardiovascular Disease | DX: Z79.899 Other long term (current) drug therapy (principal); Z87.891 Personal history of nicotine dependence; J98.8 Other specified respiratory disorders | CPT/HCPCS: 94060; 94726; 94729 ==

== ENCOUNTER → 2024-03-01 12:01 | Outpatient (CLI) | payer MEDICARE, OTHER, SELFPAY ==
--- NOTE | 2024-03-01 | DI.RAD.S_ITS ---
PROCEDURE: XR FOOT LT MIN 3V INDICATIONS: CELLULITIS TECHNIQUE: 3 views of the foot were acquired. COMPARISON: None. FINDINGS: Bones: Mild subchondral lucency at the base of the 2nd and 3rd proximal phalanx, favoring degenerative. No acute fracture or dislocation. No cortical erosion or periosteal thickening to suggest osteomyelitis. Soft tissues: No tibiotalar joint effusion. Achilles tendon appears normal. IMPRESSION: No radiographic finding to suggest osteomyelitis. Further evaluation with MRI can be considered if clinically indicated. Dictated by: Hetal Degroot M.D. on 03/01/2024 at 18:04 Approved by: Hetal Degroot M.D. on 03/01/2024 at 18:08
--- NOTE | 2024-03-01 | DI.RAD.S_ITS ---
PROCEDURE: XR FOOT RT MIN 3V INDICATIONS: CELLULITIS TECHNIQUE: 3 views of the foot were acquired. COMPARISON: None. FINDINGS: Bones: Small lucency at the plantar calcaneus, nonspecific. Osteomyelitis cannot be excluded. Mild degenerative change of the midfoot. No acute fracture or dislocation. IMPRESSION: Small lucency at the plantar calcaneus, nonspecific. Osteomyelitis cannot be excluded if there is adjacent soft tissue ulceration/wound. Recommend correlation physical exam. Dictated by: Hetal Degroot M.D. on 03/01/2024 at 18:08 Approved by: Hetal Degroot M.D. on 03/01/2024 at 18:10
== END ==
PROVIDERS: PCP Internal Medicine; Referring Provider Student in an Organized Health Care Education/Training Program; Visit Provider Student in an Organized Health Care Education/Training Program
DX: L03.115 Cellulitis of right lower limb (principal); L03.116 Cellulitis of left lower limb
CPT/HCPCS: 73630

== ENCOUNTER 2024-03-07 12:50 | Emergency (ER) | payer MEDICARE, OTHER, SELFPAY ==
[2024-03-07 13:04] VITALS: BP 156/71; PULSE 75; RESP 18; TEMP 38.1; O2SAT 92; BMI 37.8
--- NOTE | 2024-03-07 13:27 | ED_ITS ---
HPI - Wound/Laceration <Michael Regan PA-C - Last Filed: 03/07/24 15:27> General Chief Complaint: Wound/Laceration Stated Complaint: Foot Infection Time Seen by Provider: 03/07/24 13:27 History of Present Illness HPI narrative: This is a 78-year-old male presents to the emergency department due to concerns of worsening bilateral foot infection. He states that he has had bilateral chronic open wounds to the bilateral feet flu last couple of months. He was seen by his primary care provider about a week ago and was placed on Keflex and recommended follow up with wound care. He was not follow up with the Wound Care but has been taking Keflex as prescribed. Patient was given a concerned as he states that he had fever and chills onset this morning. Took Tylenol prior to arrival. Denies any chest pain, shortness of breath, or any other concerning signs or symptoms. Related Data Home Medications Medication Instructions Recorded Confirmed potassium chloride 20 mEq oral 20 meq PO Q DAY ##0 05/10/11 packet atorvastatin 20 mg tablet (Lipitor) 20 mg PO HS ##0 09/13/12 triamterene 75 1 tab PO QDAY ##0 09/13/12 mg-hydrochlorothiazide 50 mg tablet (Maxzide) ASCORBIC ACID (VITAMIN C) 500 mg PO QDAY ##0 04/05/13 [ATENOLOL] 50 mg PO HS ##0 04/05/13 [IRON] 47.5 mg PO QDAY ##0 04/05/13 amlodipine 10 mg tablet (Norvasc) 10 mg PO HS ##0 04/05/13 furosemide 20 mg tablet 20 mg PO QDAYP PRN ##0 04/05/13 gabapentin 600 mg tablet 300 mg PO BID ##0 04/05/13 (Neurontin) vit C,N-Rw-tzlxho-lutein-zeaxan 60 1 cap PO QDAY ##0 04/05/13 mg-13.5 mg-15 mg-2 mg-6 mg capsule (Ocuvite Lutein and Zeaxanthin) Allergies Allergy/AdvReac Type Severity Reaction Status Date / Time No Known Drug Allergies Allergy Verified 03/07/24 13:12 Review of Systems <Michael Regan PA-C - Last Filed: 03/07/24 15:27> Review of Systems Narrative: GENERAL: Reports fevers and chills Denies , fatigue, malaise, , sweats. HEENT: Denies sinus pain, ear pain, sore throat, difficulty swallowing, dizziness. RESPIRATORY: Denies dyspnea, cough, wheezing, hemoptysis, sputum. CARDIOVASCULAR: Denies chest pain, palpitations, orthopnea, edema, GASTROINTESTINAL: Denies nausea, vomiting, abdominal pain, diarrhea, constipation, melena. : Denies dysuria, frequency, incontinence, hematuria, urinary retention. MUSCULOSKELETAL: denies weakness, joint pain, or bony pain SKIN: Chronic bilateral wounds to the feet NEUROLOGIC: Denies weakness, headache, numbness, change in speech, confusion, seizures, incoordination. PSYCHIATRIC: No concerning psychosocial issues. 12 point review of systems is negative except for those stated above Patient History <Michael Regan PA-C - Last Filed: 03/07/24 15:27> Social History Smoking Status: Former smoker Smoking Status: Former smoker alcohol intake frequency: a few times a week Alcohol type: hard liquor Substance Use Type: does not use Exam <Michael Regan PA-C - Last Filed: 03/07/24 15:27> Narrative Exam Narrative: GENERAL: Well-developed patient, in mild distress. HEAD: Atraumatic. Normocephalic. EYES: Pupils equal round and reactive. Extraocular motions intact. No scleral icterus. No injection or drainage. ENT: Nose without bleeding, purulent drainage. Throat without erythema, tonsillar hypertrophy or exudate. Airway patent. NECK: Trachea midline. Non tender EXTREMITIES: No edema or joint tenderness. NEURO: AOx3. SKIN: Erythema affecting the bilateral feet. Appearing to be chronic wounds with some yellow crusting affecting them throughout the feet. Neurovascularly intact throughout. Initial Vital Signs Initial Vital Signs: Vital Signs Temperature 100.6 F H 03/07/24 13:04 Pulse Rate 75 03/07/24 13:04 Respiratory Rate 18 03/07/24 13:04 Blood Pressure 156/71 H 03/07/24 13:04 Pulse Oximetry 92 03/07/24 13:04 Oxygen Delivery Method Room Air 03/07/24 13:04 <Venessa Infante DO - Last Filed: 03/17/24 07:25> Initial Vital Signs Initial Vital Signs: Vital Signs Temperature 100.6 F H 03/07/24 13:04 Pulse Rate 75 03/07/24 13:04 Respiratory Rate 18 03/07/24 13:04 Blood Pressure 156/71 H 03/07/24 13:04 Pulse Oximetry 92 03/07/24 13:04 Oxygen Delivery Method Room Air 03/07/24 13:04 Course <Michael Regan PA-C - Last Filed: 03/07/24 15:27> Orders Ordered: Discontinued Medications Ondansetron HCl (Ondansetron 4 Mg/2 Ml Inj) 4 mg IV NOW PRN PRN Reason: Nausea And Vomiting Ondansetron HCl (Ondansetron 4 Mg Odt) 4 mg SL NOW PRN PRN Reason: Nausea And Vomiting Vital Signs Vital signs: Vital Signs - 8 hr 03/07/24 13:04 Temperature 100.6 F H Pulse Rate 75 Respiratory Rate 18 Blood Pressure 156/71 H Pulse Oximetry 92 Oxygen Delivery Method Room Air <Venessa Infante DO - Last Filed: 03/17/24 07:25> Orders Ordered: Discontinued Medications Ondansetron HCl (Ondansetron 4 Mg/2 Ml Inj) 4 mg IV NOW PRN PRN Reason: Nausea And Vomiting Ondansetron HCl (Ondansetron 4 Mg Odt) 4 mg SL NOW PRN PRN Reason: Nausea And Vomiting Vital Signs Vital signs: Vital Signs - 8 hr 03/07/24 13:04 Temperature 100.6 F H Pulse Rate 75 Respiratory Rate 18 Blood Pressure 156/71 H Pulse Oximetry 92 Oxygen Delivery Method Room Air MDM - Wound/Laceration <Michael Regan PA-C - Last Filed: 03/07/24 15:27> Lab Data 03/07/24 14:25 03/07/24 14:25 Labs: Lab Results 03/07/24 Range/Units 14:25 WBC 10.0 (4.5-11.0) X10^3/uL RBC 4.17 L (4.5-5.9) X10^6/uL Hgb 12.4 L (13.5-17.5) g/dL Hct 37.3 L (41-53) % MCV 89.4 (80-100) fL MCH 29.8 (26-34) PG MCHC 33.3 (30-36) % RDW 14.3 (11.6-14.8) % Plt Count 255 (150-400) X10^3/uL Neut % (Auto) 87.7 H (50-75) % Lymph % (Auto) 3.5 L (25-40) % [place]ord % (Auto) 7.0 (3-14) % Eos % (Auto) 1.4 L (2-4) % Baso % (Auto) 0.4 (0-2) % Neut # (Auto) 8800 H (0926-8261) /uL Lymph # (Auto) 400 L (0037-7142) /uL [place]ord # (Auto) 700 (0-900) /uL Eos # (Auto) 100 (0-450) /uL Baso # (Auto) 0 (0-100) /uL Sodium 136 L (137-145) mmol/L Potassium 4.8 (3.4-5.1) mmol/L Chloride 103 (98-107) mmol/L Carbon Dioxide 25 (22-32) mmol/L BUN 24 H (9-20) mg/dL Creatinine 1.25 (0.66-1.25) mg/dL Estimated GFR 59 L (>60) mL/min BUN/Creatinine Ratio 19.2 (6-22) Glucose 123 H (80-110) mg/dL Lactate 1.2 (0.7-2.1) mmol/L Calcium 9.2 (8.4-10.2) mg/dL Total Bilirubin 0.8 (0.2-1.3) mg/dL AST 29 (17-59) IU/L ALT 27 (<50) IU/L Alkaline Phosphatase 55 (38-126) U/L Total Protein 8.5 H (6.3-8.2) g/dL Albumin 4.3 (3.5-5.0) g/dL Globulin 4.2 H (1.7-4.1) g/dL Albumin/Globulin Ratio 1.0 (1.0-2.8) Procalcitonin 0.098 (<0.5) ng/mL MDM Narrative Medical decision making narrative: ED course: This is a 78-year-old male presents to the emergency department due to concerns of the continued infection to his bilateral lower extremities. The infection has been affecting him for the last couple of months is currently mid way through course of Keflex. Patient was concerned as he began to develop some fevers. Lab work today was very reassuring. No leukocytosis, lactate within normal limits. Blood cultures drawn. CMP unremarkable as well. Suspect wounds are chronic in nature and would benefit from wound care which she was already been referred to. Recommend he continue his course of Keflex and follow up with the primary care provider low concern for sepsis at this time. CC: Leg infection Complicating co-morbidities: None Data collected from: Previous notes Medical records reviewed: Patient was not been to this emergency department the past. Differential considered, but not limited to: Infection, sepsis Exam documented above, pertinent findings include: Some erythema and crusting drainage to the bilateral feet, no significant erythema spreading of the legs Lab Test results independently reviewed as above. Pertinent findings: No leukocytosis, lactate within normal limits Imaging studies independently reviewed: None obtained Scores Used: None MIPS Elements: None Consultations: None Treatments: None Re-evaluations: None Discussion: Discussed plan with the patient was comfortable with the plan Diagnosis: Leg infection Disposition: see below, along with detailed discharge instructions that have been reviewed with patient as well as indications for ED re-evaluation and additional outpatient follow up <Venessa Infante, - Last Filed: 03/17/24 07:25> Lab Data Labs: Lab Results 03/07/24 Range/Units 14:25 WBC 10.0 (4.5-11.0) X10^3/uL RBC 4.17 L (4.5-5.9) X10^6/uL Hgb 12.4 L (13.5-17.5) g/dL Hct 37.3 L (41-53) % MCV 89.4 (80-100) fL MCH 29.8 (26-34) PG MCHC 33.3 (30-36) % RDW 14.3 (11.6-14.8) % Plt Count 255 (150-400) X10^3/uL Neut % (Auto) 87.7 H (50-75) % Lymph % (Auto) 3.5 L (25-40) % [place]ack[place]ord % (Auto) 7.0 (3-14) % Eos % (Auto) 1.4 L (2-4) % Baso % (Auto) 0.4 (0-2) % Neut # (Auto) 8800 H (4205-0396) /uL Lymph # (Auto) 400 L (0803-0647) /uL [place]ord # (Auto) 700 (0-900) /uL Eos # (Auto) 100 (0-450) /uL Baso # (Auto) 0 (0-100) /uL Sodium 136 L (137-145) mmol/L Potassium 4.8 (3.4-5.1) mmol/L Chloride 103 (98-107) mmol/L Carbon Dioxide 25 (22-32) mmol/L BUN 24 H (9-20) mg/dL Creatinine 1.25 (0.66-1.25) mg/dL Estimated GFR 59 L (>60) mL/min BUN/Creatinine Ratio 19.2 (6-22) Glucose 123 H (80-110) mg/dL Lactate 1.2 (0.7-2.1) mmol/L Calcium 9.2 (8.4-10.2) mg/dL Total Bilirubin 0.8 (0.2-1.3) mg/dL AST 29 (17-59) IU/L ALT 27 (<50) IU/L Alkaline Phosphatase 55 (38-126) U/L Total Protein 8.5 H (6.3-8.2) g/dL Albumin 4.3 (3.5-5.0) g/dL Globulin 4.2 H (1.7-4.1) g/dL Albumin/Globulin Ratio 1.0 (1.0-2.8) Procalcitonin 0.098 (<0.5) ng/mL Discharge Plan Departure Patient Disposition: Home Clinical Impression: Infection Activity Restrictions/Additional Instructions: Thank you for coming to the [facility] Emergency Department today. Your labs today were very reassuring. There was no evidence of a systemic infection. I recommend he continue taking the antibiotics and follow up with the wound care as you have currently been recommended to do. Please follow up with the primary care provider for symptoms continue. You may use Tylenol as needed for any fevers Please return to the emergency department if you develop any chest pain, shortness of breath, redness spreading up her legs, or any other concerning signs or symptoms. I hope you feel better soon. Please follow up with your primary care provider within a week if your symptoms continue. If you do not have a primary care provider please contact the [facility] Resource line at [phone]. They will ask some questions about your medical history and help you get set up with a provider in the community. Prescriptions: No Action potassium chloride 20 MEQ packet 20 meq PO Q DAY Qty: 0 atorvastatin [Lipitor] 20 MG tablet 20 mg PO HS Qty: 0 triamterene-hydrochlorothiazid [Maxzide] 75 MG/50 MG tablet 1 tab PO QDAY Qty: 0 [IRON] 47.5 mg PO QDAY Qty: 0 furosemide 20 MG tablet 20 mg PO QDAYP PRNQty: 0 amlodipine [Norvasc] 10 MG tablet 10 mg PO HS Qty: 0 ASCORBIC ACID (VITAMIN C) 500 mg PO QDAY Qty: 0 gabapentin [Neurontin] 600 MG tablet 300 mg PO BID Qty: 0 vit C,Q-Yu-dsdqh-lutein-zeaxan [Ocuvite Lutein and Zeaxanthin] 1 EACH capsule 1 cap PO QDAY Qty: 0 [ATENOLOL] 50 mg PO HS Qty: 0 Referrals: Tom Morales MD [Primary Care Provider] - Stand Alone Forms: Patient Portal/API ED Sign-out <Venessa Infante DO - Last Filed: 03/17/24 07:25> Cosign ED Attending Teriature Attestation: I was immediately available in the department for consultation.
[2024-03-07 14:41] LABS: Add Manual Diff / Slide Review NO; Basophils Absolute Auto 0 /uL (0-100); Basophils Percent Auto 0.4 % (0-2); Eosinophils Absolute Auto 100 /uL (0-450); Eosinophils Percent Auto 1.4 % (2-4); Hematocrit 37.3 % (41-53); Hemoglobin 12.4 g/dL (13.5-17.5); Lymphocytes Absolute Auto 400 /uL (1100-4500); Lymphocytes Percent Auto 3.5 % (25-40); Mean Corpuscular HGB Conc 33.3 % (30-36); Mean Corpuscular Hemoglobin 29.8 PG (26-34); Mean Corpuscular Volume 89.4 fL (80-100); Monocytes Absolute Auto 700 /uL (0-900); Neutrophils Absolute Auto 8800 /uL (1500-7000); Neutrophils Percent Auto 87.7 % (50-75); Platelet Count 255 X10^3/uL (150-400); Red Blood Cell Count 4.17 X10^6/uL (4.5-5.9); Red Cell Distribution Width 14.3 % (11.6-14.8)
[2024-03-07 15:07] LABS: Alanine Aminotransferase 27 IU/L (<50); Albumin 4.3 g/dL (3.5-5.0); Alkaline Phosphatase 55 U/L (38-126); Aspartate Aminotransferase 29 IU/L (17-59); BUN Creatinine Ratio 19.2 (6-22); Bilirubin Total 0.8 mg/dL (0.2-1.3); Blood Urea Nitrogen 24 mg/dL (9-20); Calcium 9.2 mg/dL (8.4-10.2); Carbon Dioxide 25 mmol/L (22-32); Chloride 103 mmol/L (98-107); Estimated Glomerular Filt Rate 59 mL/min (>60); Globulin 4.2 g/dL (1.7-4.1); Glucose 123 mg/dL (80-110); HEMOLYSIS 26 (0-50); Lactate (Lactic Acid) 1.2 mmol/L (0.7-2.1); Potassium 4.8 mmol/L (3.4-5.1); Sodium 136 mmol/L (137-145); Total Protein 8.5 g/dL (6.3-8.2)
[2024-03-07 15:24] LABS: Procalcitonin 0.098 ng/mL (<0.5)
[2024-03-07 15:25] VITALS: BP 137/63; PULSE 70; RESP 21; TEMP 36.7; O2SAT 95
== END 2024-03-07 15:46 | disposition home or self-care (01) ==
PROVIDERS: Emergency Provider Physician Assistant Medical; PCP Internal Medicine
DX: L08.9 Local infection of the skin and subcutaneous tissue, unspecified (principal)
CPT/HCPCS: 80053; 83605; 84145; 85025; 87040; 99281; 99283

== ENCOUNTER → 2024-05-04 13:44 | Outpatient (CLI) | payer MEDICARE, OTHER, SELFPAY ==
--- NOTE | 2024-05-04 13:47 | EKG_ITS ---
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
== END ==
LOC: RESP 13:46
PROVIDERS: PCP Internal Medicine; Referring Provider Internal Medicine Infectious Disease; Visit Provider Internal Medicine Infectious Disease
DX: I49.9 Cardiac arrhythmia, unspecified (principal)
CPT/HCPCS: 93005

== ENCOUNTER → 2024-05-17 12:35 | Outpatient (CLI) | payer MEDICARE, OTHER, SELFPAY | PROVIDERS: PCP Internal Medicine; Referring Provider Internal Medicine Cardiovascular Disease; Visit Provider Internal Medicine Cardiovascular Disease | DX: Z79.899 Other long term (current) drug therapy (principal); R94.2 Abnormal results of pulmonary function studies; I48.91 Unspecified atrial fibrillation; I35.0 Nonrheumatic aortic (valve) stenosis; I10 Essential (primary) hypertension | CPT/HCPCS: 94060; 94729 ==

== ENCOUNTER → 2024-05-17 12:38 | Outpatient (CLI) | payer MEDICARE, OTHER, SELFPAY ==
--- NOTE | 2024-05-17 13:23 | EKG_ITS ---
[place] [address] [place] [id number] Test Date: 2024-05-17 Pat Name: Kareem Schuler Department: Room: Gender: Male Operator Lights: GANESH : 1945 Requested By: Order Number: [id number] Reading MD: Carlitos Alonso MD Measurements Intervals [place] Rate: 106 P: 45 [place]: 136 QRS: 27 QRSD: 114 T: 233 QT: 350 QTc: 464 Interpretive Statements Sinus tachycardia T wave abnormality, consider inferior ischemia Electronically Signed On 05-17-2024 13:36:34 PDT by Carlitos Alonso MD
== END ==
PROVIDERS: PCP Internal Medicine; Referring Provider Internal Medicine Infectious Disease; Visit Provider Internal Medicine Infectious Disease
DX: I49.9 Cardiac arrhythmia, unspecified (principal); Z79.899 Other long term (current) drug therapy; R94.2 Abnormal results of pulmonary function studies; I48.91 Unspecified atrial fibrillation; I35.0 Nonrheumatic aortic (valve) stenosis; I10 Essential (primary) hypertension
CPT/HCPCS: 93005; 93010; 94060; 94729

== ENCOUNTER → 2024-11-20 13:00 | Outpatient (CLI) | payer MEDICARE, OTHER, SELFPAY | PROVIDERS: PCP Internal Medicine; Referring Provider Physician Assistant; Visit Provider Physician Assistant | DX: J98.8 Other specified respiratory disorders (principal); Z79.899 Other long term (current) drug therapy; Z87.891 Personal history of nicotine dependence; R94.2 Abnormal results of pulmonary function studies; I48.91 Unspecified atrial fibrillation | CPT/HCPCS: 94060; 94726; 94729 ==

== ENCOUNTER 2024-12-20 11:22 | Inpatient (IN) | payer MEDICARE, OTHER, SELFPAY ==
[2024-12-20] VITALS (13 sets, daily range): BP systolic 161–183; BP diastolic 66–107; PULSE 74–97; RESP 16–17; TEMP 35.9–36.8; O2SAT 95–99; BMI 41.8; BMI 41.2
--- NOTE | 2024-12-20 13:11 | PC.NURSE ---
Further discussion reveals that patient had a culture done of foot wounds 3 weeks ago and was placed on an oral antibiotic at that time for 10 days. The infection in feet progressed and did not get better. Patient is also on a daily antibiotic that is preventative for recurrent infection in right knee surgical site. Patient has failed outpatient therapy for infection in feet, Dr. Heath aware.
[2024-12-20 13:15] LABS: Add Manual Diff / Slide Review NO; Basophils Absolute Auto 0 /uL (0-100); Basophils Percent Auto 0.6 % (0-2); Eosinophils Absolute Auto 100 /uL (0-450); Eosinophils Percent Auto 1.7 % (2-4); Hemoglobin 12.2 g/dL (13.5-17.5); Lymphocytes Absolute Auto 700 /uL (1100-4500); Lymphocytes Percent Auto 16.4 % (25-40); Mean Corpuscular Hemoglobin 29.8 PG (26-34); Mean Corpuscular Volume 87.7 fL (80-100); Monocytes Absolute Auto 400 /uL (0-900); Monocytes Percent Auto 8.8 % (3-14); Neutrophils Absolute Auto 3300 /uL (1500-7000); Neutrophils Percent Auto 72.5 % (50-75); Platelet Count 272 X10^3/uL (150-400); Red Blood Cell Count 4.11 X10^6/uL (4.5-5.9); Red Cell Distribution Width 14.4 % (11.6-14.8); White Blood Cell Count 4.5 X10^3/uL (4.5-11.0)
[2024-12-20 13:35] LABS: Alanine Aminotransferase 17 IU/L (<50); Albumin 4.2 g/dL (3.5-5.0); Albumin Globulin Ratio 1.1 (1.0-2.8); Alkaline Phosphatase 53 U/L (38-126); Aspartate Aminotransferase 23 IU/L (17-59); Bilirubin Total 0.5 mg/dL (0.2-1.3); Blood Urea Nitrogen 26 mg/dL (9-20); Calcium 9.6 mg/dL (8.4-10.2); Carbon Dioxide 26 mmol/L (22-32); Chloride 101 mmol/L (98-107); Estimated Glomerular Filt Rate 56 mL/min (>60); Glucose 120 mg/dL (70-99); HEMOLYSIS < 15 (0-50); Sodium 135 mmol/L (137-145); Total Protein 8.2 g/dL (6.3-8.2)
[2024-12-20 13:36] LABS: Erythrocyte Sedimentation Rate 87 MM/HR (0-15)
[2024-12-20 13:39] LABS: C-Reactive Protein Quant 1.9 mg/dL (<1.0)
[2024-12-20 13:51] LABS: Procalcitonin 0.075 ng/mL (<0.5)
--- NOTE | 2024-12-20 18:02 | PC.NURSE ---
Dorsalis pedis pulses obtained with doppler, strong and present. Dr. Heath present at bedside.
--- NOTE | 2024-12-20 18:18 | PM.HP.1 ---
History of Present Illness History of Present Illness Chief complaint: painfull infection in bilateral feet Narrative: The patient was a year old male with chronic lymphedema. He has been at home alone for 3 years since his . He was unable to walk, and transfers from bed to a wheelchair. He makes all of his meals in a microwave. His food is delivered to him by friends. He presents now with increased leg pain. He has chronic right knee pain in his on chronic suppressive antibiotics from Infectious Disease at [facility]. He has chronic redness of both feet and weeping. He was scheduled to transfer to wound care in [place] from [facility] in the next week to 2 weeks. He also has a pending echocardiogram to assess his heart function. He was on chronic amiodarone and apixaban. He takes chlorthalidone and spironolactone. He was not on a loop diuretic. He denies fevers, chills, or increased redness. He was unable to walk and has increased pain which led to him coming to the hospital today. He was a chronic systolic heart murmur. Meds Home Medications and Allergies Home Medications Medication Instructions Recorded Confirmed Type amlodipine 10 mg tablet (Norvasc) 10 mg PO HS ##0 04/05/13 12/20/24 History amiodarone 200 mg tablet 200 mg PO DAILY 12/20/24 12/20/24 History apixaban 5 mg tablet (Eliquis) 5 mg PO BID 12/20/24 12/20/24 History chlorthalidone 25 mg tablet 25 mg PO DAILY 12/20/24 12/20/24 History levofloxacin 750 mg tablet 750 mg PO DAILY 12/20/24 12/20/24 History spironolactone 25 mg tablet 25 mg PO BID 12/20/24 12/20/24 History Allergies Allergy/AdvReac Type Severity Reaction Status Date / Time No Known Drug Allergies Allergy Verified 12/20/24 11:31 Review of Systems Review of Systems Narrative: All else reviewed and otherwise unremarkable except as noted in the history and physical. Exam Vital Signs (past 8 hours): - 12/20/24 11:26 12/20/24 14:59 12/20/24 15:00 Temperature 98.3 F Pulse Rate 97 H 85 90 Respiratory Rate 17 Blood Pressure 183/87 H Pulse Oximetry 97 99 97 Oxygen Delivery Method Room Air 12/20/24 15:30 12/20/24 16:00 12/20/24 16:30 Temperature Pulse Rate 84 87 84 Respiratory Rate 16 Blood Pressure Pulse Oximetry 96 96 96 Oxygen Delivery Method Room Air 12/20/24 16:30 12/20/24 17:00 12/20/24 17:00 Temperature Pulse Rate 85 Respiratory Rate Blood Pressure 164/74 H 161/76 H Pulse Oximetry 96 Oxygen Delivery Method 12/20/24 17:30 12/20/24 18:00 12/20/24 18:01 Temperature Pulse Rate 87 82 84 Respiratory Rate Blood Pressure Pulse Oximetry 95 97 95 Oxygen Delivery Method 12/20/24 18:01 Temperature Pulse Rate Respiratory Rate Blood Pressure 177/107 H Pulse Oximetry Oxygen Delivery Method Oxygen Delivery Method Room Air Narrative Exam Narrative: NAD, alert and oriented, fluent speech, calm. Normocephalic skull, EOMI, anicteric sclera, symmetric pupils. Oropharynx unremarkable, no droop. Neck supple, midline trachea, no adenopathy. Lungs clear, normal rate and effort. Heart regular, loud systolic murmur and no gallop or rub. Abdomen is soft, non distended and non tender. Extremities are notable for massive edema [id number] knees and very edematous feet. The for feet are red and weeping. There was no obvious open ulceration or purulent drainage. Skin is free of rash or lesions. Joints are not swollen or deformed. The right knee is not red or warm. Judgment appears to be normal. Objective Labs 12/20/24 12:55 12/20/24 12:55 Labs: Laboratory Results - last 24 hr 12/20/24 12:55 WBC 4.5 RBC 4.11 L Hgb 12.2 L Hct 36.0 L MCV 87.7 MCH 29.8 MCHC 34.0 RDW 14.4 Plt Count 272 Neut % (Auto) 72.5 Lymph % (Auto) 16.4 L [place] % (Auto) 8.8 Eos % (Auto) 1.7 L Baso % (Auto) 0.6 Neut # (Auto) 3300 Lymph # (Auto) 700 L [place] # (Auto) 400 Eos # (Auto) 100 Baso # (Auto) 0 ESR 87 H Sodium 135 L Potassium 5.0 Chloride 101 Carbon Dioxide 26 BUN 26 H Creatinine 1.30 H Estimated GFR 56 L BUN/Creatinine Ratio 20.0 Glucose 120 H Lactate 1.0 Calcium 9.6 Total Bilirubin 0.5 AST 23 ALT 17 Alkaline Phosphatase 53 C-Reactive Protein 1.9 H Total Protein 8.2 Albumin 4.2 Globulin 4.0 Albumin/Globulin Ratio 1.1 Procalcitonin 0.075 Assessment & Plan Assessment & Plan narrative: 1. Acute on chronic lymphedema especially affecting the feet, with increased pain and inability to walk. Present on admission and active. 2. Increased right knee pain in a patient on chronic suppressive antibiotics for knee infection, present on admission and active. 3. Atrial fibrillation and chronic anticoagulation and amiodarone, present on admission and active. 4. Morbid obesity with BMI 41.9, present on admission and active. 5. Hypertension, present on admission and active. Plan: Admit to observation, anticipate 1 midnight. Echo to assess LV function. Wound care consult for wound care recommendations. Physical therapy assessment to assess home care needs. Patient is full resuscitation. Time-Based Coding :: 35 min spent with patient and on the chart (including review of chart, obtaining history, exam, reviewing outside data, placing orders, documenting exam and treatment plan, and counseling patient) on 12/20/24. Quality MIPS - Admit I confirm the patient?s Advance Care Plan is present, Code status is documented, Surrogate decision maker is in patient?s record [If Yes, STOP here]: Yes MIPS - Meds 'Current medications' to include all prescriptions, [id number] products, herbals, cannabis/cannabidiol products, and vitamin/mineral/dietary (nutritional) supplements. I have utilized all available resources to obtain, update, or review the patient?s current medications. [If Yes, STOP here]: Yes
--- NOTE | 2024-12-20 18:34 | ED.WOUNDLAC ---
HPI - Wound/Laceration General Chief Complaint: Wound/Laceration Stated Complaint: painfull infection in bilateral feet Time Seen by Provider: 12/20/24 14:33 Source: patient Mode of arrival: Wheelchair History of Present Illness HPI narrative: This 79-year-old male presents to the emergency department with a history that he has had a chronic right knee infection since falling at a conference years ago and scraping the top of his right foot. He has been on chronic antibiotics to keep the infection at [place] as he was told by an orthopedist he would otherwise have to have the leg amputated. However since that same fall he has had chronic lymphedema which has recently worsened to the point that the patient is unable to ambulate and transfer. He is followed by both [facility] and also with the [facility] wound care and they have become frustrated trying to contain his problem and claimed that he needs to be seen in lymphedema clinic. Not able to get into that clinic for 2 weeks. His wounds were most recently dressed on his legs yesterday by home health. He lives by himself. Past medical history is negative for diabetes. Related Data Home Medications Medication Instructions Recorded Confirmed amlodipine 10 mg tablet (Norvasc) 10 mg PO HS ##0 04/05/13 12/20/24 amiodarone 200 mg tablet 200 mg PO DAILY 12/20/24 12/20/24 apixaban 5 mg tablet (Eliquis) 5 mg PO BID 12/20/24 12/20/24 chlorthalidone 25 mg tablet 25 mg PO DAILY 12/20/24 12/20/24 levofloxacin 750 mg tablet 750 mg PO DAILY 12/20/24 12/20/24 spironolactone 25 mg tablet 25 mg PO BID 12/20/24 12/20/24 Allergies Allergy/AdvReac Type Severity Reaction Status Date / Time No Known Drug Allergies Allergy Verified 12/20/24 11:31 Review of Systems Review of Systems Narrative: Review of systems reveals chronic right knee swelling and low-grade infection which is treated with levofloxacin b.i.d.. In addition the patient has severe lymphedema of his lower legs and feet which have caused breakdown of skin and wounds between the toes. The patient has had chronic wound care between would be [facility] an [facility]. He is currently unable to ambulate or transfer with his legs. All other systems are negative on review of systems. Patient History Social History Smoking Status: Never smoker Smoking Status: Never smoker alcohol intake frequency: a few times a week Alcohol type: hard liquor Exam Narrative Exam Narrative: General appearance is that of a morbidly obese elderly male with significantly swollen lower legs the right worse than the left they are both in an [place] boot type dressing. HEENT-PERRL mouth is moist. Neck supple without nodes or stridor Chest clear to P&A Cardiovascular regular rhythm without murmur Abdomen grossly obese, nontender adequate bowel sounds Extremities-upper extremities reveal normal range of motion without significant edema. Lower extremities reveal a gross lymphedema both lower legs and feet right worse than the left the right knee is also grossly edematous and slightly warm but nonerythematous. There is guarded range of motion of the knee. The [place] boot type dressing on the right leg was removed to examine the skin since this was the worst leg lymphedema. The toes of the right foot are grossly deformed by lymphedema in this skin is cobblestoned in many places breaking down. There is dressing material between the toes to question him from further damage. Patient has very little range of motion of his right ankle and toes of his right foot due to lymphedema. There are intact pulses in the right distal leg and there appears to be decreased sensation in the right foot due to significant lymphedema. Neuro the patient is alert and oriented x3. Initial Vital Signs Initial Vital Signs: Vital Signs Temperature 98.3 F 12/20/24 11:26 Pulse Rate 97 H 12/20/24 11:26 Respiratory Rate 17 12/20/24 11:26 Blood Pressure 183/87 H 12/20/24 11:26 Pulse Oximetry 97 12/20/24 11:26 Oxygen Delivery Method Room Air 12/20/24 11:26 Course Course Course Narrative: This 79-year-old male presents to the emergency room with the complaint of severe lymphedema of the lower legs and inability to transfer and walk. He has some skin breakdown between the toes of his right foot due to the degree of lymphedema. He also has moderately severe edema at the left lower extremity but that dressing was not removed at the time of exam. It was felt that the degree of his disability was great in that he necessitated an admit for observation to try to diurese some of the swelling from his legs so that he could wait for the appointment in the lymphedema clinic. Dr. Leung was on-call for the patient's regular physician and agreed to admit him to observation for diuresis of his lymphedema. Orders Ordered: ED Orders 12/20/24 12:55 CBC Auto Diff [Complete Blood Count AUTO DIFF] Stat CMP [Comprehensive Metabolic Panel] Stat CRP [C-Reactive Protein Quant] Stat ESR [Erythrocyte Sedimentation Rate] Stat Lactate (Lactic Acid) Stat Procalcitonin Stat 12/20/24 13:15 Blood Culture Stat Acetaminophen (Acetaminophen 325 Mg Tablet) 650 mg PO Q6H PRN PRN Reason: Fever/Mild Pain (1-3) Naloxone HCl (Naloxone 0.4 Mg/Ml Vial) 0.2 mg IV Q2MIN PRN PRN Reason: Opiate Reversal Vital Signs Vital signs: Vital Signs - 8 hr 12/20/24 11:26 12/20/24 14:59 12/20/24 15:00 Temperature 98.3 F Pulse Rate 97 H 85 90 Respiratory Rate 17 Blood Pressure 183/87 H Pulse Oximetry 97 99 97 Oxygen Delivery Method Room Air 12/20/24 15:30 12/20/24 16:00 12/20/24 16:30 Temperature Pulse Rate 84 87 84 Respiratory Rate 16 Blood Pressure Pulse Oximetry 96 96 96 Oxygen Delivery Method Room Air 12/20/24 16:30 12/20/24 17:00 12/20/24 17:00 Temperature Pulse Rate 85 Respiratory Rate Blood Pressure 164/74 H 161/76 H Pulse Oximetry 96 Oxygen Delivery Method 12/20/24 17:30 12/20/24 18:00 12/20/24 18:01 Temperature Pulse Rate 87 82 84 Respiratory Rate Blood Pressure Pulse Oximetry 95 97 95 Oxygen Delivery Method 12/20/24 18:01 Temperature Pulse Rate Respiratory Rate Blood Pressure 177/107 H Pulse Oximetry Oxygen Delivery Method MDM - Wound/Laceration Medical Records Attestation: I reviewed the patient's medical records. Medical records narrative: The patient presented with bilateral lower leg edema preventing him from ambulating and transferring adequately. It is felt that this was lymphedema as it was of a much more significant chronic degree. There was no clear evidence of acute infection in the lower legs, as lab was negative for signs of infection i.e. normal WBC, normal lactate, minimally elevated CRP.. It does appear to be a low level of infection ongoing in the right knee as it is warm but not erythematous and it is edematous. It is felt he will require both PT and some wound treatment while he is in the hospital. He is admitted for 24 hour period to basically diuresis legs and get him transferring per the assistance of PT. Lab Data Attestation: I reviewed the patient's lab results. 12/20/24 12:55 12/20/24 12:55 Labs: Lab Results 12/20/24 Range/Units 12:55 WBC 4.5 (4.5-11.0) X10^3/uL RBC 4.11 L (4.5-5.9) X10^6/uL Hgb 12.2 L (13.5-17.5) g/dL Hct 36.0 L (41-53) % MCV 87.7 (80-100) fL MCH 29.8 (26-34) PG MCHC 34.0 (30-36) % RDW 14.4 (11.6-14.8) % Plt Count 272 (150-400) X10^3/uL Neut % (Auto) 72.5 (50-75) % Lymph % (Auto) 16.4 L (25-40) % [place] % (Auto) 8.8 (3-14) % Eos % (Auto) 1.7 L (2-4) % Baso % (Auto) 0.6 (0-2) % Neut # (Auto) 3300 (3608-8012) /uL Lymph # (Auto) 700 L (9555-5672) /uL [place] # (Auto) 400 (0-900) /uL Eos # (Auto) 100 (0-450) /uL Baso # (Auto) 0 (0-100) /uL ESR 87 H (0-15) MM/HR Sodium 135 L (137-145) mmol/L Potassium 5.0 (3.4-5.1) mmol/L Chloride 101 (98-107) mmol/L Carbon Dioxide 26 (22-32) mmol/L BUN 26 H (9-20) mg/dL Creatinine 1.30 H (0.66-1.25) mg/dL Estimated GFR 56 L (>60) mL/min BUN/Creatinine Ratio 20.0 (6-22) Glucose 120 H (70-99) mg/dL Lactate 1.0 (0.7-2.1) mmol/L Calcium 9.6 (8.4-10.2) mg/dL Total Bilirubin 0.5 (0.2-1.3) mg/dL AST 23 (17-59) IU/L ALT 17 (<50) IU/L Alkaline Phosphatase 53 (38-126) U/L C-Reactive Protein 1.9 H (<1.0) mg/dL Total Protein 8.2 (6.3-8.2) g/dL Albumin 4.2 (3.5-5.0) g/dL Globulin 4.0 (1.7-4.1) g/dL Albumin/Globulin Ratio 1.1 (1.0-2.8) Procalcitonin 0.075 (<0.5) ng/mL Discharge Plan Departure Patient Disposition: Admitted as Observation Clinical Impression: Inability to walk, Lymphedema of both lower extremities Admit Date/Time: 12/20/24 18:08 Admit Provider: Navid Guerrier
--- NOTE | 2024-12-20 18:55 | PC.NURSE ---
Bilateral dressing changed with use of absorbant ABD pads and Gauze roll.
[2024-12-20] MEDS: SPIRONOLACTONE 25 MG TABLET PO (22:34)
[2024-12-20] MEDS: CHLORTHALIDONE 25 MG TABLET PO (22:34)
[2024-12-20] MEDS: APIXABAN 5 MG TABLET PO (22:34)
[2024-12-20] MEDS: levoFLOXacin 250 MG TABLET 750 MG PO (22:35)
[2024-12-20] MEDS: AMLODIPINE 5 MG TABLET PO (22:37)
--- NOTE | 2024-12-20 23:30 | PC.RNWOUND ---
Lightly scabbed area to bilat buttocks, healing appropriately. Patient reports he had previous wound to buttocks.
[2024-12-21 04:48] LABS: Add Manual Diff / Slide Review NO; Basophils Absolute Auto 0 /uL (0-100); Basophils Percent Auto 0.8 % (0-2); Eosinophils Absolute Auto 100 /uL (0-450); Eosinophils Percent Auto 3.1 % (2-4); Hematocrit 32.6 % (41-53); Hemoglobin 11.1 g/dL (13.5-17.5); Lymphocytes Absolute Auto 800 /uL (1100-4500); Lymphocytes Percent Auto 17.5 % (25-40); Mean Corpuscular HGB Conc 34.2 % (30-36); Mean Corpuscular Hemoglobin 29.9 PG (26-34); Mean Corpuscular Volume 87.5 fL (80-100); Monocytes Absolute Auto 600 /uL (0-900); Monocytes Percent Auto 12.8 % (3-14); Neutrophils Absolute Auto 3100 /uL (1500-7000); Neutrophils Percent Auto 65.8 % (50-75); Platelet Count 242 X10^3/uL (150-400); Red Blood Cell Count 3.73 X10^6/uL (4.5-5.9); Red Cell Distribution Width 14.6 % (11.6-14.8); White Blood Cell Count 4.7 X10^3/uL (4.5-11.0)
[2024-12-21 04:58] LABS: BUN Creatinine Ratio 20.8 (6-22); Blood Urea Nitrogen 25 mg/dL (9-20); Carbon Dioxide 26 mmol/L (22-32); Chloride 102 mmol/L (98-107); Estimated Glomerular Filt Rate > 60 mL/min (>60); Glucose 106 mg/dL (70-99); HEMOLYSIS < 15 (0-50); Potassium 4.4 mmol/L (3.4-5.1); Sodium 134 mmol/L (137-145)
[2024-12-21 08:00] VITALS: BP 134/48; PULSE 62; RESP 16; TEMP 36.1; O2SAT 94
[2024-12-21] MEDS: SPIRONOLACTONE 25 MG TABLET PO ×2 (09:33→21:31)
[2024-12-21] MEDS: AMLODIPINE 5 MG TABLET PO ×2 (09:33→21:30)
[2024-12-21] MEDS: AMIODARONE 200 MG TABLET PO (09:33)
[2024-12-21] MEDS: APIXABAN 5 MG TABLET PO ×2 (09:33→21:30)
[2024-12-21] MEDS: SODIUM CHLORIDE 0.9% FLUSH 10 ML IV ×2 (09:33→21:31)
--- NOTE | 2024-12-21 10:55 | PT.IIE ---
Physical Therapy Inpatient Evaluation/Re-Eval M1 PT/OT-IP Prior Functional Status Start: 12/21/24 12:21 Freq: NEEDED Status: Active Protocol: Document 12/21/24 10:55 AB (Rec: 12/21/24 12:54 AB [id number]) Medical Review Prior Functional Status Medical History Reviewed Yes Communication able to make needs known Mobility and Gait pt stated that he has not walk for ~ 2years and only squat pivot transfer from w/c<> recliner/toilet Social History Household Members none Living Arrangements RV Number of Floors (Floors) One Floor Number of Stairs To Enter/Railing? ramp to enter Home Environment Standard Height Toilet,Walk in Shower,Built-In Shower Seat Home Equipment Manual Wheelchair,Hand Held Shower,Lift Recliner,Grab Bars In Shower Additional Social History Comment pt sleeps on a lift recliner pt stated that he has not taken any showers for a long time due to LE sores/wounds M2 PT-IP Current Condition Start: 12/21/24 12:21 Freq: NEEDED Status: Active Protocol: Document 12/21/24 10:55 AB (Rec: 12/21/24 12:54 AB [id number]) Physical Therapy Current Condition Current Condition Evaluation Date 12/21/24 Treatment Diagnosis BLE lymphedema; generalized weakness Onset Date 12/20/24 M3 PT-IP Subjective Start: 12/21/24 12:21 Freq: NEEDED Status: Active Protocol: Document 12/21/24 10:55 AB (Rec: 12/21/24 12:54 AB [id number]) Subjective Physical Therapy Visit Type Type Initial Evaluation Visit Start Time 10:55 Visit Stop Time 11:45 Number of BUSINESS APPLICATIONS SPECIALIST Visits 0 Physical Therapy Visit Comments Patient Comments agreeable to do PT Therapy Pain Assessment Pain When Pain Assessed At Rest Location Bilateral feet Intensity 3 Scale Used Numeric (0 - 10) Pain Management Techniques Distraction,Elevation, Modification of Treatment,Re- positioning M4 PT-IP Mobility and Gait Start: 12/21/24 12:21 Freq: NEEDED Status: Active Protocol: Document 12/21/24 10:55 AB (Rec: 12/21/24 12:54 AB [id number]) PT-Bed Mobility Assessment Supine to Sit Supine to Sit Standby Assistance PT-Transfer Assessment Equipment Transfer Assistive Device None Orthotic/Prosthetic Devices or Brace: No Transfers Transfer Destination Chair,Wheelchair Transfer Technique Squat Pivot Transfer Ability Level of Assist Standby Assistance,1 Person Assistance,Use of Upper Extremities Comments Mobility Comments pt in bed and agreeable to do PT. obtained PLOF and home set up. pt completed supine to sit SBA. able to sit on EOb SBA. completed squat pivot transfer to w/c SBA . pt plops on the w/c and stated that, that is how he usually transfers. pt transferred from w/c to chair SBA. asked pt to have w/c arm rest up and out of the way for safe transfer. pt understood. positioned pt on the chair. call light and table placed within reach. PT-Balance Assessment Sitting Balance and Reactions Static Sitting Balance Ability Good Dynamic Sitting Balance Ability Good M5 PT-IP Objective Assessments Start: 12/21/24 12:21 Freq: NEEDED Status: Active Protocol: Document 12/21/24 10:55 AB (Rec: 12/21/24 12:54 AB [id number]) Orientation Orientation/Cognition Level of Alertness Alert Orientation Name,Place,Situation Language Function Ability Hard of Hearing Safety Awareness Decreased Safety Awareness Memory Description No Deficits Noted Gross Range of Motion Lower Extremity ROM Assessment Within Functional Limits Strength Lower Extremity Strength Assessment Bilaterally Impaired Hip R: 3+/5 L 4-/5 Knee R3+/5 L 3+/5 Ankle B foot drop Muscle Tone Muscle Tone WNL Yes M6 PT-IP Treatment Start: 12/21/24 12:21 Freq: NEEDED Status: Active Protocol: Document 12/21/24 10:55 AB (Rec: 12/21/24 12:54 AB [id number]) Physical Therapy Treatment Education Education Provided Safety M7 PT-IP Assessment and Plan Start: 12/21/24 12:21 Freq: NEEDED Status: Active Protocol: Document 12/21/24 10:55 AB (Rec: 12/21/24 12:54 AB [id number]) PT Summary Assessment and Plan Potential Rehabilitation Potential Fair Status of Condition at Evaluation Stable Summary Impairments Pain,ROM,Strength,Balance, Coordination,Sensation,Tone, Cognition,Bed Mobility, Transfers,Gait,Activity Tolerance Assessment Summary pt is an 79 y/o M who is admitted for BLE lymphedema. pt is non-ambulatory prior to admission but able to squat pivot transfer without AD. pt requiring SBA with transfer but required set up. will see pt for PT for ~ 1-2 more sessions to see if there is carryover of safety techniques provided today during PT session. will continue to assess. Goals Transfer Goal Independent Days to Meet Goals 2 Frequency of Treatment Frequency Of Treatment Once a Day Treatment Plan Physical Therapy Treatment Plan Transfer Training Recommendations To Nursing Amount of Assist Needed 1 Person Assist Discharge Recommendations PT Discharge Recommendations Home with Assistance,Home Health Transportation Needs at Discharge Private Vehicle,Wheelchair/ Cabulance - PT assist 1
--- NOTE | 2024-12-21 12:40 | CM.DANOTE ---
Initial DCP Assessment Note Pt is an 79 yo male, resident of [place], presents with pain, swelling in both feet and right knee, admitted for management of Lymphedema BLE with inability to bear weight/walk. PCP: Tom Morales Payer: [facility] Reviewed chart, pt discussed in multidisciplinary rounds this morning. Therapy and Wound care consult pending today. Met w/patient who reports he lives alone in a senior mobile home park in [place]. Patient has been a for the last 3 years. Patient has no children, is wc dependent in/out of his mobile home and describes the following as means used to survive living alone: -[facility] RN for wound care, [facility] outpatient wound care -Manual wc indoors, electric wc outdoors -Transport via friends and paratransit in [place] -Friends in the mobile park help with meals, cleaning,transport -[facility] ([facility] to the mobile home park) help with cleaning, transport,errands, support -[employer] delivers 4 meals weekly -Patient has financial means and says will not qualify for [facility] Discussed SNF and patient politely declines. Patient plans to return home at [place] and will have a friend get him home. Discussed hired in home care and patient agrees this would be helpful. Provided patient with the [employer] resources guidebook and the number for: [place] navigator, [place], Vikas Scherer [place] [phone]. Emailed a new F2F and HH order with clinical to Johnna at [facility]. Plan: Discharge home w/friends and support network, [facility] RN (patient declines PT/OT), outpatient wound care, patient to f/u on calls to in home care agencies. CM team will continue to follow clinical course closely. CARLA Martinez Discharge Planning/Care Management CM Discharge Assessment Start: 12/21/24 12:23 Freq: Status: Active Protocol: Document 12/21/24 12:23 BREANNE (Rec: 12/21/24 12:35 BREANNE [id number]) Discharge Planning Assessment Assigned Furniture Finisher CARLA Rolon DPOA/Assigned Designee Name Nba Lee, friend Contact Information [phone] Advance Directives? No History Provided By Patient,Medical Record Has Patient been admitted in last 30 No days? Prior Living Arrangements Mobile home Household Members none Type of transporation used prior to Relies on Others admit Independent with ADL's Yes Is patient alert and oriented? Yes Needs Assistance With Meal Prep,Home Chores / Shopping Patient/Family Preference Home with Home Health Barriers to Discharge Yes Comment Patient reports chronic weeping feet and being weak, cannot stand on his right leg for long. However, patient will not consider SNF thus home w/HH is the current discharge plan. Discharge Plan Home with Home Health Transportation Arrangement Friend Referrals Initiated Home Health Additional Comment Patient already has [facility] for wound care which will be resumed.
--- NOTE | 2024-12-21 13:04 | PM.CN.IH.1 ---
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 He is currently hospitalized due to inability to walk and leg pain. He is seen virtually by the Infectious Disease at [facility] and on jail chronic antibiotic suppression for his knee infection. He has chronic redness of both feet and weeping. He is currently receiving wound care with [facility] wound clinic. He notes increased pain and swelling prior to admission. He reports he has used multiple dressings including interdry at home. He does not use regular compression. He is waiting for admission to lymphedema therapy. He states he has been told not much more can be done for his feet. He was offered amputation above the knee by his ID service for his chronic septic arthritis but has preferred to continue on predatory animal exterminator antibiotics. SH: He lives alone and is mostly sedentary, transfers himself from bed to wheelchair. Meals usually with microwave or delivered by friends. Meds Home Medications and Allergies Home Medications Medication Instructions Recorded Confirmed Type amiodarone 200 mg tablet 200 mg PO DAILY 12/20/24 12/20/24 History apixaban 5 mg tablet (Eliquis) 5 mg PO BID 12/20/24 12/20/24 History chlorthalidone 25 mg tablet 25 mg PO DAILY 12/20/24 12/20/24 History levofloxacin 750 mg tablet 750 mg PO DAILY 12/20/24 12/20/24 History spironolactone 25 mg tablet 25 mg PO BID 12/20/24 12/20/24 History isosorbide dinitrate 5 mg tablet 5 mg PO BID #60 tabs 12/24/24 Rx Allergies Allergy/AdvReac Type Severity Reaction Status Date / Time No Known Drug Allergies Allergy Verified 12/20/24 11:31 Exam Vital Signs (past 8 hours): - 12/21/24 08:00 Temperature 97 F L Pulse Rate 62 Respiratory Rate 16 Blood Pressure 134/48 L Pulse Oximetry 94 Oxygen Flow Rate 0 Oxygen Delivery Method Room Air Oxygen Flow Rate 0 Narrative Exam Narrative: NAD, alert and oriented. Fluent speech. Lungs normal breathing effort Extremities: B/l massive massive foot edema. Skin is erythematous, macerated, draining and strong infectious odor is present. No green discharge. Objective Labs 12/22/24 04:55 12/24/24 05:46 Labs: Laboratory Results - last 24 hr 12/20/24 12/21/24 12:55 04:20 WBC 4.5 4.7 RBC 4.11 L 3.73 L Hgb 12.2 L 11.1 L Hct 36.0 L 32.6 L MCV 87.7 87.5 MCH 29.8 29.9 MCHC 34.0 34.2 RDW 14.4 14.6 Plt Count 272 242 Neut % (Auto) 72.5 65.8 Lymph % (Auto) 16.4 L 17.5 L Knott % (Auto) 8.8 12.8 Eos % (Auto) 1.7 L 3.1 Baso % (Auto) 0.6 0.8 Neut # (Auto) 3300 3100 Lymph # (Auto) 700 L 800 L Knott # (Auto) 400 600 Eos # (Auto) 100 100 Baso # (Auto) 0 0 ESR 87 H Sodium 135 L 134 L Potassium 5.0 4.4 Chloride 101 102 Carbon Dioxide 26 26 BUN 26 H 25 H Creatinine 1.30 H 1.20 Estimated GFR 56 L > 60 BUN/Creatinine Ratio 20.0 20.8 Glucose 120 H 106 H Lactate 1.0 Calcium 9.6 9.0 Total Bilirubin 0.5 AST 23 ALT 17 Alkaline Phosphatase 53 C-Reactive Protein 1.9 H Total Protein 8.2 Albumin 4.2 Globulin 4.0 Albumin/Globulin Ratio 1.1 Procalcitonin 0.075 [facility] Medical History (Updated 12/25/24 @ 09:47 by Ama Bradford PA-C) Cellulitis Social History household members: none Tobacco & Substance Use Smoking Status: Never smoker alcohol intake: current Assessment & Plan Assessment and plan (1) Lymphedema of both lower extremities: Status: Acute (2) Cellulitis: Qualifiers: Site of cellulitis: extremity Site of cellulitis of extremity: lower extremity Laterality: unspecified laterality Qualified Code(s): L03.119 - Cellulitis of unspecified part of limb Status: Acute Plan Recommend initiate IV antibiotics for cellulitis Dressing: BID Bilateral - Coat foot in nystatin powder, place interdry sheets between each toe, cover with abd pads, wrap in gauze and coban Culture today - patient may need ID referral upon discharge - prefers switch to [facility] Continue with wound care on discharge and referral to lymphadema therapy/ regular compression Time-Based Coding :: [45] spent with patient and on the chart (including review of chart, obtaining history, exam, reviewing outside data, placing orders, documenting exam and treatment plan, and counseling patient) on [12/21/24]. PROFEE Charge Codes Inpatient or Observation consultation: [id number]
[2024-12-21] MEDS: PIPERACILLIN/TAZO 3.375 GM in SODIUM CHLORIDE 0.9% 100 ML IV ×2 (13:06→21:30)
--- NOTE | 2024-12-21 13:22 | P.PN_ITS ---
Subjective Subjective Interval history: S: He was having a lot of foot pain. He denies any dyspnea. Wound care is seeing him today as his physical therapy. Exam Vital Signs (past 8 hours): - 12/21/24 08:00 Temperature 97 F L Pulse Rate 62 Respiratory Rate 16 Blood Pressure 134/48 L Pulse Oximetry 94 Oxygen Flow Rate 0 Oxygen Delivery Method Room Air Oxygen Flow Rate 0 Narrative Exam Narrative: NAD, alert and oriented. Fluent speech. Lungs are clear, normal rate and effort. Heart is regular, no murmur gallop or rub. Abdomen is soft, non distended. Extremities: With lower leg edema bilaterally and massive foot edema. See media photos, skin is macerated and red. Objective Labs 12/21/24 04:20 12/21/24 04:20 Labs: Laboratory Results - last 24 hr 12/20/24 12/21/24 12:55 04:20 WBC 4.7 RBC 3.73 L Hgb 11.1 L Hct 32.6 L MCV 87.5 MCH 29.9 MCHC 34.2 RDW 14.6 Plt Count 242 Neut % (Auto) 65.8 Lymph % (Auto) 17.5 L Tucker % (Auto) 12.8 Eos % (Auto) 3.1 Baso % (Auto) 0.8 Neut # (Auto) 3100 Lymph # (Auto) 800 L Tucker # (Auto) 600 Eos # (Auto) 100 Baso # (Auto) 0 ESR 87 H Sodium 135 L 134 L Potassium 5.0 4.4 Chloride 101 102 Carbon Dioxide 26 26 BUN 26 H 25 H Creatinine 1.30 H 1.20 Estimated GFR 56 L > 60 BUN/Creatinine Ratio 20.0 20.8 Glucose 120 H 106 H Lactate 1.0 Calcium 9.6 9.0 Total Bilirubin 0.5 AST 23 ALT 17 Alkaline Phosphatase 53 C-Reactive Protein 1.9 H Total Protein 8.2 Albumin 4.2 Globulin 4.0 Albumin/Globulin Ratio 1.1 Procalcitonin 0.075 PFSH Social History household members: none Smoking Status: Never smoker alcohol intake: current Assessment & Plan Assessment & Plan narrative: 1. Acute on chronic lymphedema especially affecting the feet, with increased pain and inability to walk. Present on admission and active. 2. Increased right knee pain in a patient on chronic suppressive antibiotics for knee infection, present on admission and active. 3. Atrial fibrillation and chronic anticoagulation and amiodarone, present on admission and active. 4. Morbid obesity with BMI 41.9, present on admission and active. 5. Hypertension, present on admission and active. Plan: Discussed with wound care, concern for active infection. We will start Zosyn IV Q 8 hours and continue leg elevation. A wound swab was obtained. Echo to assess LV function. Wound care consult for wound care recommendations. We will proceed with aggressive wound care for the next 2 days with leg elevation, antifungals, IV antibiotics, and b.i.d. nystatin. Physical therapy assessment to assess home care needs. He is not stable enough for discharge. Time-Based Coding :: [TOTAL MINUTES] spent with patient and on the chart (including review of chart, obtaining history, exam, reviewing outside data, placing orders, documenting exam and treatment plan, and counseling patient) on [DATE]. Quality VTE Deep Vein Thrombosis/Pulmonary Embolism Present on Admission: No
[2024-12-21 15:27] LABS: Hemoglobin A1C% w Est Avg Glu 5.2 % (4.0-6.0)
--- NOTE | 2024-12-21 16:14 | DI.ECHO.S_ITS ---
[facility] : : [address] : [place] : : [id number] : : Phone: [phone] Echocardiogram Report + + :Name: DOT KELLY Study Date: 12/22/2024 Height: 74 in : :Hospital ReadingLocation: Weight: 321 lb : : Gender: Male BSA: 2.7 m2 : :: 1945 Age: 79 yrs BP: 112/46 mmHg: :Reason For Study: EDEMA : :Ordering Physician: JOLEEN, : :MARTIN Tinsley Performed By: Bushra Nam : :Referring: MARTIN GOODRICH : + + Interpretation Summary Normal sinus rhythm. Normal LV size and mildly increased wall thickness. Normal wall motion and LV systolic function. Ejection fraction is 55-60%. Stage I diastolic dysfunction. Mild left atrial enlargement; otherwise normal chamber sizes. Mild mitral annular calcification. Aortic valve leaflets are moderately thickened and calcified and demonstrate moderately reduced leaflet excursion. There is moderate associated aortic stenosis with peak velocity of 3.7 m/s and mean gradient of 31 mmHg. Mildly dilated ascending aorta measuring 4.1 cm in diameter. Compared to prior echo obtained July 15, 2023, aortic stenosis progressed. Peak velocity increased from 3.5 to 3.7 m/s. Mean gradient dima from 29 mmHg to 31 mmHg. Procedure: A two-dimensional transthoracic echocardiogram with color flow and Doppler was performed. The study quality was technically adequate. Comparison is made with the echocardiogram of 07/15/2023. A contrast injection of Definity was performed to improve assessment of LV function. The patient was in sinus bradycardia with heart rates between 61-67 bpm during the exam. Left Ventricle: The left ventricle is mildly dilated. There is mild concentric left ventricular hypertrophy. The ejection fraction is estimated to be 55-60%. Right Ventricle: The right ventricle is borderline dilated. The right ventricular systolic function is normal. Atria: The left atrial size is normal. The left atrium is mildly dilated. Right atrial size is normal. There is no Doppler evidence for an interatrial shunt. Mitral Valve: The mitral valve leaflets are mildly calcified. There is mild mitral annular calcification. There is trace mitral regurgitation. Aortic Valve: The aortic valve is severely calcified. There is moderately reduced leaflet mobility. The peak aortic velocity is 3.64 m/sec. The aortic valve mean gradient is 32 mmHg. Dimensionless index of 0.28. There is mild aortic regurgitation. Tricuspid Valve: The tricuspid valve is not well visualized, but is grossly normal. There is mild tricuspid regurgitation. Pulmonary artery pressures cannot be estimated because of the lack of a measurable TR jet velocity. Pulmonic Valve: The pulmonic valve is not well seen, but is grossly normal. There is no pulmonic valvular regurgitation. Great Vessels: The aortic root is borderline dilated. The ascending aorta is mildly enlarged. The IVC is of normal diameter and collapses greater than 50% with a sniff. This suggests a low right atrial pressure of 3 mm Hg. Pericardium/ Pleura There is no pericardial effusion. There is no pleural effusion. MMode/2D Measurements & Calculations LVIDd: 6.1 cm LVOT diam: 2.5 cm LVIDs: 4.4 cm Ao root diam: 4.1 cm FS: 28.8 % asc Aorta Diam: 4.2 cm EPSS: 1.2 cm Ao Arch Diam (Prox Trans): 3.2 cm IVSd: 1.1 cm LVPWd: 1.1 cm LV helms. diameter/BSA (cm/m^2): 2.3 LV sys. diameter/BSA (cm/m^2): 1.6 LA A2 area: 28.4 cm2 RA long axis: 5.9 cm LA A4 area: 27.2 cm2 RA area: 21.0 cm2 LA length (vol): 7.1 cm RA vol: 64.1 ml LA vol: 92.4 ml RA : 24.1 ml/m2 LA vol index: 34.8 ml/m2 IVC diam: 1.9 cm RVD1 (basal): 4.2 cm RVD2 (mid): 3.4 cm TAPSE: 1.9 cm Doppler Measurements & Calculations Ao V2 max: 364.8 cm/sec LVOT Max Dominic: 103.8 cm/sec Ao V2 mean: 258.1 cm/sec LV V1 max P.3 mmHg Ao max P.5 mmHg LV V1 VTI: 21.8 cm Ao mean P.0 mmHg SHELBIE(I,D): 1.3 cm2 Ao V2 VTI: 79.0 cm SHELBIE(V,D): 1.4 cm2 sev ratio: 0.28 SHELBIE indexed to BSA (cm^2/m^2): 0.50 MV E max dominic: 67.8 cm/sec PA V2 max: 106.5 cm/sec MV A max dominic: 82.3 cm/sec PA V2 mean: 72.9 cm/sec MV E/A: 0.82 PA mean P.4 mmHg Med Peak E' Dominic: 9.9 cm/sec PA pr(Accel): 29.3 mmHg E/E' med: 6.8 Lat Peak E' Dominic: 9.5 cm/sec E/E' lat: 7.2 E/e' average: 7.0 MV dec time: 0.24 sec MVA(VTI): 3.7 cm2 MV V2 mean: 53.8 cm/sec SV(LVOT): 105.5 ml MV mean P.3 mmHg MV V2 VTI: 28.2 cm Electronically signed by: Valorie Cheung M.D. on Reading Physician:12/22/2024 02:36 PM
[2024-12-21 19:00] VITALS: BP 127/54; PULSE 88; RESP 20; TEMP 36.2; O2SAT 94
[2024-12-21] MEDS: CHLORTHALIDONE 25 MG TABLET PO (21:30)
[2024-12-21] MEDS: NYSTATIN POWDER 15GM 1 APPLIC TOP (21:31)
[2024-12-22] MEDS: PIPERACILLIN/TAZO 3.375 GM in SODIUM CHLORIDE 0.9% 100 ML IV ×3 (04:18→20:53)
[2024-12-22 05:11] LABS: Add Manual Diff / Slide Review NO; Basophils Absolute Auto 0 /uL (0-100); Basophils Percent Auto 0.7 % (0-2); Eosinophils Absolute Auto 200 /uL (0-450); Eosinophils Percent Auto 4.3 % (2-4); Hematocrit 34.1 % (41-53); Hemoglobin 11.6 g/dL (13.5-17.5); Lymphocytes Absolute Auto 1100 /uL (1100-4500); Lymphocytes Percent Auto 25.5 % (25-40); Mean Corpuscular Hemoglobin 29.7 PG (26-34); Mean Corpuscular Volume 87.3 fL (80-100); Monocytes Absolute Auto 600 /uL (0-900); Monocytes Percent Auto 14.9 % (3-14); Neutrophils Absolute Auto 2300 /uL (1500-7000); Neutrophils Percent Auto 54.6 % (50-75); Platelet Count 254 X10^3/uL (150-400); Red Blood Cell Count 3.91 X10^6/uL (4.5-5.9); Red Cell Distribution Width 14.3 % (11.6-14.8); White Blood Cell Count 4.3 X10^3/uL (4.5-11.0)
[2024-12-22 05:25] LABS: BUN Creatinine Ratio 22.4 (6-22); Blood Urea Nitrogen 30 mg/dL (9-20); Calcium 9.4 mg/dL (8.4-10.2); Carbon Dioxide 25 mmol/L (22-32); Chloride 103 mmol/L (98-107); Estimated Glomerular Filt Rate 54 mL/min (>60); Glucose 110 mg/dL (70-99); HEMOLYSIS < 15 (0-50); Potassium 4.5 mmol/L (3.4-5.1); Sodium 135 mmol/L (137-145)
--- NOTE | 2024-12-22 07:19 | PM.PN.1 ---
Subjective Subjective Interval history: Summary: Patient is an 79-year-old male who is wheelchair bound and lives alone in [place]. He was chronic lymphedema in his followed by would be [facility]. He was trying to get into the chronic lymphedema clinic at [facility]. He presented because increased pain of his feet. He was also on chronic antibiotics for suppression of a right knee infection through [facility] infectious disease. He takes levofloxacin 750 mg daily indefinitely. The patient is able to transfer at home from bed to chair and does most of his meal preparation with a microwave. Wound Care did see and dress his feet. They were concerned about infection due to odor. The plan was to place him on IV antibiotics over the weekend and do b.i.d. wound dressings with nystatin powder per their request. They will re-evaluate on Tuesday and then he will likely go home on oral antibiotics based on his cultures and clinical course. He will then continue to be followed at [facility], be seen at home with [facility] for wound care, and work with the lymphedema program at [facility]. He declines any half-way facility involvement at this point. S: He was doing well, keeping his feet elevated. He was tolerating Zosyn, his antibiotic. No chest pain, or dyspnea. Exam Vital Signs (past 8 hours): Oxygen Delivery Method Room Air Oxygen Flow Rate 0 Narrative Exam Narrative: NAD, alert and oriented. Fluent speech. Lungs are clear, normal rate and effort. Heart is regular, no murmur gallop or rub. Abdomen is soft, non distended. Extremities are swollen distally with both feet wrapped. Objective Labs 12/22/24 04:55 12/22/24 04:55 Labs: Laboratory Results - last 24 hr 12/21/24 12/22/24 04:20 04:55 WBC 4.3 L RBC 3.91 L Hgb 11.6 L Hct 34.1 L MCV 87.3 MCH 29.7 MCHC 34.0 RDW 14.3 Plt Count 254 Neut % (Auto) 54.6 Lymph % (Auto) 25.5 Avery % (Auto) 14.9 H Eos % (Auto) 4.3 H Baso % (Auto) 0.7 Neut # (Auto) 2300 Lymph # (Auto) 1100 Avery # (Auto) 600 Eos # (Auto) 200 Baso # (Auto) 0 Sodium 135 L Potassium 4.5 Chloride 103 Carbon Dioxide 25 BUN 30 H Creatinine 1.34 H Estimated GFR 54 L BUN/Creatinine Ratio 22.4 H Glucose 110 H Hemoglobin A1c 5.2 Calcium 9.4 [facility] Social History household members: none Smoking Status: Never smoker alcohol intake: current Assessment & Plan Assessment & Plan narrative: 1. Acute on chronic lymphedema especially affecting the feet, with increased pain and inability to walk. Present on admission and active. 2. Increased right knee pain in a patient on chronic suppressive antibiotics for knee infection, present on admission and active. 3. Atrial fibrillation and chronic anticoagulation and amiodarone, present on admission and active. 4. Morbid obesity with BMI 41.9, present on admission and active. 5. Hypertension, present on admission and active. 6. Bilateral foot cellulitis, present on admission and active. Plan: -echo today to assess heart function. -IV Zosyn t.i.d. through Tuesday. -follow wound cultures, and anticipate a 1-2 week course of oral antibiotics at discharge. -wound care we will re-evaluate him Tuesday, then he can discharge home. He is not stable enough for discharge and needs another night of IV antibiotics for probable foot infection relating to his chronic lymphedema. Full code. He will exceed a reasonable period of observation services on Tuesday, December 23. Anticipate 2 more nights of hospital care with the discharge Tuesday. Time-Based Coding :: [TOTAL MINUTES] spent with patient and on the chart (including review of chart, obtaining history, exam, reviewing outside data, placing orders, documenting exam and treatment plan, and counseling patient) on [DATE]. Quality VTE Deep Vein Thrombosis/Pulmonary Embolism Present on Admission: No
[2024-12-22 08:00] VITALS: BP 112/46; PULSE 79; RESP 17; TEMP 36.3; O2SAT 94
[2024-12-22] MEDS: SPIRONOLACTONE 25 MG TABLET PO ×2 (09:25→20:53)
[2024-12-22] MEDS: AMIODARONE 200 MG TABLET PO (09:25)
[2024-12-22] MEDS: AMLODIPINE 5 MG TABLET PO ×2 (09:25→20:53)
[2024-12-22] MEDS: APIXABAN 5 MG TABLET PO ×2 (09:25→20:53)
[2024-12-22] MEDS: NYSTATIN POWDER 15GM 1 APPLIC TOP ×2 (09:26→20:53)
[2024-12-22] MEDS: SODIUM CHLORIDE 0.9% FLUSH 10 ML IV ×2 (09:27→20:54)
--- NOTE | 2024-12-22 11:47 | PT.IPTN ---
Physical Therapy Treatment Note M2 PT-IP Current Condition Start: 12/21/24 12:21 Freq: NEEDED Status: Active Protocol: Document 12/21/24 10:55 AB (Rec: 12/21/24 12:54 AB [id number]) Physical Therapy Current Condition Current Condition Evaluation Date 12/21/24 Treatment Diagnosis BLE lymphedema; generalized weakness Onset Date 12/20/24 M3 PT-IP Subjective Start: 12/21/24 12:21 Freq: NEEDED Status: Active Protocol: Document 12/22/24 11:47 AB (Rec: 12/22/24 12:28 AB Desktop) Subjective Physical Therapy Visit Type Type Treatment Note Visit Start Time 11:47 Visit Stop Time 12:10 Number of CAR DRIVER Visits 0 Physical Therapy Visit Comments Patient Comments agreeable to do PT M4 PT-IP Mobility and Gait Start: 12/21/24 12:21 Freq: NEEDED Status: Active Protocol: Document 12/22/24 11:47 AB (Rec: 12/22/24 12:28 AB Desktop) PT-Bed Mobility Assessment Supine to Sit Supine to Sit Standby Assistance Sit to Supine Sit to Supine Standby Assistance PT-Transfer Assessment Transfers Transfer Destination Bed,Wheelchair Transfer Technique Squat Pivot Transfer Ability Level of Assist Standby Assistance,1 Person Assistance,Use of Upper Extremities Comments Mobility Comments pt in bed and agreed to do PT but does not want to stay on the chair and wants to go back to bed afterwards. supine to sit SBA. able to sit on EOB SBA. pt completed squat pivot transfer to w/c SBA. informed pt's w/c to reinforced brakes and pt understood. pt able to transfer back to bed using bed rail lateral scooting. sit to supine SBA. positioned pt in bed. call light within reach and set up for lunch. Left pt with [facility]. informed pt that PT will be d/ c'd and agreed. informed hospitalist regarding PT d/c and pt will benefit more from OT for ADLs and UE strengthening. M5 PT-IP Objective Assessments Start: 12/21/24 12:21 Freq: NEEDED Status: Active Protocol: Document 12/21/24 10:55 AB (Rec: 12/21/24 12:54 AB [id number]) Orientation Orientation/Cognition Level of Alertness Alert Orientation Name,Place,Situation Language Function Ability Hard of Hearing Safety Awareness Decreased Safety Awareness Memory Description No Deficits Noted Gross Range of Motion Lower Extremity ROM Assessment Within Functional Limits Strength Lower Extremity Strength Assessment Bilaterally Impaired Hip R: 3+/5 L 4-/5 Knee R3+/5 L 3+/5 Ankle B foot drop Muscle Tone Muscle Tone WNL Yes M6 PT-IP Treatment Start: 12/21/24 12:21 Freq: NEEDED Status: Active Protocol: Document 12/22/24 11:47 AB (Rec: 12/22/24 12:28 AB Desktop) Physical Therapy Treatment Education Education Provided Safety M7 PT-IP Assessment and Plan Start: 12/21/24 12:21 Freq: NEEDED Status: Active Protocol: Document 12/22/24 11:47 AB (Rec: 12/22/24 12:28 AB Desktop) PT Summary Assessment and Plan Potential Rehabilitation Potential Fair Summary Impairments Pain,Strength,Balance, Transfers Progress Towards Goals Slow Progress - Other Assessment Summary pt requiring SBA with squat pivot/lateral scoot transfers. pt lives alone and plans to have friends to assist him if needed. pt sleeps on a lift chair and house is set up for him to be able to transfer safely. pt has been w/c bound for ~ 2 years. no further PT intervention indicated at this time. pt will benefit from OT services for ADL needs and UE strengthening. Goals Transfer Goal Independent Days to Meet Goals 2 Frequency of Treatment Frequency Of Treatment Discharge Recommendations To Nursing Amount of Assist Needed 1 Person Assist Discharge Recommendations PT Discharge Recommendations Home with Assistance,Home Health Transportation Needs at Discharge Private Vehicle,Wheelchair/ Cabulance - PT assist 1
--- NOTE | 2024-12-22 12:45 | CM.DPC ---
DCP Cont: Per MD, pt on IV abx likely through the weekend and cultures pending with a plan of discharge home on PO abx. Per PT, pt improved today and seems back to baseline with ability to squat pivot transfer independently and recommending home with assist and HH. [facility] already working with pt and SW previously faxed updated clinicals and orders for plan of home with Resumption of [facility]. Soniya Fulton MSW
[2024-12-22 20:29] VITALS: BP 144/53; PULSE 64; RESP 18; TEMP 36.2; O2SAT 94
[2024-12-22] MEDS: CHLORTHALIDONE 25 MG TABLET PO (20:53)
[2024-12-23] MEDS: PIPERACILLIN/TAZO 3.375 GM in SODIUM CHLORIDE 0.9% 100 ML IV ×3 (04:15→20:24)
[2024-12-23 08:00] VITALS: BP 147/57; PULSE 64; RESP 16; TEMP 36.6; O2SAT 96
--- NOTE | 2024-12-23 08:19 | PM.PN.1 ---
Subjective Subjective Date Patient Seen: 12/23/24 Interval history: Chief complaint: Leg pain and malodor with chronic lymphedema possible cellulitis and septic arthritis of right knee History of present illness: The patient was a year old male with chronic lymphedema. He has been at home alone for 3 years since his . He was unable to walk, and transfers from bed to a wheelchair. He makes all of his meals in a microwave. His food is delivered to him by friends. He presents now with increased leg pain. He has chronic right knee pain in his on chronic suppressive antibiotics from Infectious Disease at [facility]. He has chronic redness of both feet and weeping. He was scheduled to transfer to wound care in [place] from [facility] in the next week to 2 weeks. He also has a pending echocardiogram to assess his heart function. He was on chronic amiodarone and apixaban. He takes chlorthalidone and spironolactone. He was not on a loop diuretic. He denies fevers, chills, or increased redness. He was unable to walk and has increased pain which led to him coming to the hospital today. Hospital course: Echocardiogram 12/22/2024: Interpretation Summary Normal sinus rhythm. Normal LV size and mildly increased wall thickness. Normal wall motion and LV systolic function. Ejection fraction is 55-60%. Stage I diastolic dysfunction. Mild left atrial enlargement; otherwise normal chamber sizes. Mild mitral annular calcification. Aortic valve leaflets are moderately thickened and calcified and demonstrate moderately reduced leaflet excursion. There is moderate associated aortic stenosis with peak velocity of 3.7 m/s and mean gradient of 31 mmHg. Mildly dilated ascending aorta measuring 4.1 cm in diameter. Compared to prior echo obtained July 15, 2023, aortic stenosis progressed. Peak velocity increased from 3.5 to 3.7 m/s. Mean gradient dima from 29 mmHg to 31 mmHg. 12/23: Patient notes less pain and edema in feet BUN 30/1.34 unchanged Review of systems: No fever or chills loss of appetite no difficulty swallowing No chest pains or palpitations No shortness a breath No nausea vomiting diarrhea No urinary symptom Physical exam: No acute distress alert and oriented HEENT unremarkable Heart irregularly irregular rhythm 3/6 systolic murmur noted Lungs Clear from apices to bases Abdomen benign 2+ chronic edema lower extremities Feet are bandaged Assessment and plan: 1. Acute on chronic lymphedema especially affecting the feet, with increased pain and inability to walk. Present on admission and active. -trial of switching from amlodipine to nitrates topical at 1st and then Isordil if tolerated for reduction of venous resistance and LVEDP to improve edema -continue diuretics -continue acute antibiotic 2. Increased right knee pain in a patient on chronic suppressive antibiotics for knee infection, present on admission and active. 3. Atrial fibrillation and chronic anticoagulation and amiodarone, present on admission and active. 4. Morbid obesity with BMI 41.9, present on admission and active. 5. Hypertension, present on admission and active. 6. Patient is full resuscitation. Time-Based Coding 35 min spent with patient and on the chart (including review of chart, obtaining history, exam, reviewing outside data, placing orders, documenting exam and treatment plan, and counseling patient) Exam Vital Signs (past 8 hours): Oxygen Delivery Method Room Air Oxygen Flow Rate 0 Objective Labs 12/22/24 04:55 12/23/24 10:40 [facility] Social History household members: none Smoking Status: Never smoker alcohol intake: current Assessment & Plan Time-Based Coding :: [TOTAL MINUTES] spent with patient and on the chart (including review of chart, obtaining history, exam, reviewing outside data, placing orders, documenting exam and treatment plan, and counseling patient) on [DATE]. Quality VTE Deep Vein Thrombosis/Pulmonary Embolism Present on Admission: No
[2024-12-23] MEDS: APIXABAN 5 MG TABLET PO ×2 (08:31→20:23)
[2024-12-23] MEDS: AMIODARONE 200 MG TABLET PO (08:31)
[2024-12-23] MEDS: FUROSEMIDE 40 MG TABLET PO (08:31)
[2024-12-23] MEDS: SPIRONOLACTONE 25 MG TABLET PO ×2 (08:31→20:23)
[2024-12-23] MEDS: ACETAMINOPHEN 325 MG TABLET 650 MG PO (08:32)
[2024-12-23] MEDS: NITROGLYCERIN OINT 1 INCH/GM OINT...G. 0.5 INCH TOP (08:44)
[2024-12-23] MEDS: NYSTATIN POWDER 15GM 1 APPLIC TOP ×2 (08:48→20:25)
[2024-12-23] MEDS: SODIUM CHLORIDE 0.9% FLUSH 10 ML IV ×2 (08:49→20:26)
[2024-12-23 11:06] LABS: BUN Creatinine Ratio 22.1 (6-22); Blood Urea Nitrogen 31 mg/dL (9-20); Calcium 9.3 mg/dL (8.4-10.2); Carbon Dioxide 26 mmol/L (22-32); Chloride 100 mmol/L (98-107); Estimated Glomerular Filt Rate 51 mL/min (>60); Glucose 114 mg/dL (70-99); HEMOLYSIS < 15 (0-50); Potassium 4.8 mmol/L (3.4-5.1); Sodium 135 mmol/L (137-145)
[2024-12-23 15:00] VITALS: BP 132/54; PULSE 60; TEMP 36.6
[2024-12-23] MEDS: CHLORTHALIDONE 25 MG TABLET PO (20:24)
[2024-12-23 21:02] VITALS: BP 129/52; PULSE 75; RESP 18; TEMP 36.5; O2SAT 93
[2024-12-24] MEDS: PIPERACILLIN/TAZO 3.375 GM in SODIUM CHLORIDE 0.9% 100 ML IV ×2 (03:50→12:37)
[2024-12-24 06:27] LABS: Blood Urea Nitrogen 35 mg/dL (9-20); Calcium 9.4 mg/dL (8.4-10.2); Carbon Dioxide 26 mmol/L (22-32); Chloride 101 mmol/L (98-107); Estimated Glomerular Filt Rate 46 mL/min (>60); Glucose 109 mg/dL (70-99); HEMOLYSIS < 15 (0-50); Potassium 4.4 mmol/L (3.4-5.1); Sodium 135 mmol/L (137-145)
[2024-12-24 08:00] VITALS: BP 145/68; PULSE 85; RESP 18; TEMP 36.2; O2SAT 95
[2024-12-24] MEDS: APIXABAN 5 MG TABLET PO ×2 (08:11→20:13)
[2024-12-24] MEDS: FUROSEMIDE 40 MG TABLET PO (08:11)
[2024-12-24] MEDS: SPIRONOLACTONE 25 MG TABLET PO ×2 (08:11→20:13)
[2024-12-24] MEDS: AMIODARONE 200 MG TABLET PO (08:12)
[2024-12-24] MEDS: NYSTATIN POWDER 15GM 1 APPLIC TOP ×2 (08:22→20:14)
[2024-12-24] MEDS: SODIUM CHLORIDE 0.9% FLUSH 10 ML IV ×2 (08:28→20:13)
--- NOTE | 2024-12-24 10:36 | PM.PN.1 ---
Subjective Subjective Date Patient Seen: 12/24/24 Interval history: Chief complaint: Leg pain and malodor with chronic lymphedema possible cellulitis and septic arthritis of right knee History of present illness: The patient was a year old male with chronic lymphedema. He has been at home alone for 3 years since his . He was unable to walk, and transfers from bed to a wheelchair. He makes all of his meals in a microwave. His food is delivered to him by friends. He presents now with increased leg pain. He has chronic right knee pain in his on chronic suppressive antibiotics from Infectious Disease at [facility]. He has chronic redness of both feet and weeping. He was scheduled to transfer to wound care in [place] from [facility] in the next week to 2 weeks. He also has a pending echocardiogram to assess his heart function. He was on chronic amiodarone and apixaban. He takes chlorthalidone and spironolactone. He was not on a loop diuretic. He denies fevers, chills, or increased redness. He was unable to walk and has increased pain which led to him coming to the hospital today. Hospital course: Echocardiogram 12/22/2024: Interpretation Summary Normal sinus rhythm. Normal LV size and mildly increased wall thickness. Normal wall motion and LV systolic function. Ejection fraction is 55-60%. Stage I diastolic dysfunction. Mild left atrial enlargement; otherwise normal chamber sizes. Mild mitral annular calcification. Aortic valve leaflets are moderately thickened and calcified and demonstrate moderately reduced leaflet excursion. There is moderate associated aortic stenosis with peak velocity of 3.7 m/s and mean gradient of 31 mmHg. Mildly dilated ascending aorta measuring 4.1 cm in diameter. Compared to prior echo obtained July 15, 2023, aortic stenosis progressed. Peak velocity increased from 3.5 to 3.7 m/s. Mean gradient dima from 29 mmHg to 31 mmHg. 12/23: Patient notes less pain and edema in feet BUN 30/1.34 unchanged 12/24: > 3 L of diuresis yesterday lower extremities much less edema to the mid foot no complaints Wound culture returned yesterday Aerobic Culture for wounds Preliminary 12/24/24-0793 Organism 1 Alcaligenes species (faecalis) Growth LIGHT Action to follow No Further Workup Organism 2 Gram positive bacilli Growth MODERATE Action to follow Identification to follow 1. Alcaligenes species (faecalis) M.I.C. RX --------- --- * Amikacin 8 S * Aztreonam >=64 R * Cefepime >=64 R * Cefotaxime 8 S * Ceftazidime 8 I * Ceftriaxone <=1 S * Ciprofloxacin >=4 R * Gentamicin 4 S * Tobramycin <=1 S Switch from nitroglycerin paste to isosorbide mononitrate 15 mg once a day and continue to discontinue amlodipine with improved lower extremity edema now limited to the distal forefoot Review of systems: No fever or chills loss of appetite no difficulty swallowing No chest pains or palpitations No shortness a breath No nausea vomiting diarrhea No urinary symptom Physical exam: No acute distress alert and oriented HEENT unremarkable Heart irregularly irregular rhythm 3/6 systolic murmur noted Lungs Clear from apices to bases Abdomen benign No edema of the lower extremities to the mid foot Toes are still extremely edematous left without significant erythema right with erythema but apparently improving but still have a ?gelatinous appearance? Assessment and plan: 1. Acute on chronic lymphedema especially affecting the feet, good response to switching from amlodipine to isosorbide mononitrate -trial of switching from amlodipine to nitrates topical at 1st and then Isordil if tolerated for reduction of venous resistance and LVEDP to improve edema -continue diuretics -continue acute antibiotic can narrow spectrum to ceftriaxone 1 g q.12 hours 2. Increased right knee pain in a patient on chronic suppressive antibiotics for knee infection, present on admission and active. 3. Atrial fibrillation and chronic anticoagulation and amiodarone, present on admission and active. 4. Morbid obesity with BMI 41.9, present on admission and active. 5. Hypertension, present on admission and active. 6. Patient is full resuscitation. Time-Based Coding 35 min spent with patient and on the chart (including review of chart, obtaining history, exam, reviewing outside data, placing orders, documenting exam and treatment plan, and counseling patient) Exam Vital Signs (past 8 hours): - 12/24/24 08:00 Temperature 97.2 F L Pulse Rate 85 Respiratory Rate 18 Blood Pressure 145/68 H Pulse Oximetry 95 Oxygen Delivery Method Room Air Oxygen Flow Rate 0 Objective Labs 12/22/24 04:55 12/24/24 05:46 Labs: Laboratory Results - last 24 hr 12/23/24 12/24/24 10:40 05:46 Sodium 135 L 135 L Potassium 4.8 4.4 Chloride 100 101 Carbon Dioxide 26 26 BUN 31 H 35 H Creatinine 1.40 H 1.52 H Estimated GFR 51 L 46 L BUN/Creatinine Ratio 22.1 H 23.0 H Glucose 114 H 109 H Calcium 9.3 9.4 PFSH Social History household members: none Smoking Status: Never smoker alcohol intake: current Assessment & Plan Time-Based Coding :: [TOTAL MINUTES] spent with patient and on the chart (including review of chart, obtaining history, exam, reviewing outside data, placing orders, documenting exam and treatment plan, and counseling patient) on [DATE]. Quality VTE Deep Vein Thrombosis/Pulmonary Embolism Present on Admission: No
[2024-12-24] MEDS: ISOSORBIDE MONONITRATE ER 30 MG TABLET 15 MG PO (12:36)
[2024-12-24] MEDS: cefTRIAXone 2,000 MG in SODIUM CHLORIDE 0.9% 100 ML 200 MG IV (14:00)
--- NOTE | 2024-12-24 14:24 | CM.DPC ---
DCP Cont: Per MD, pt with 3-4L of fluid off yesterday and legs and feet have improved but toes/feet still quite swollen and one more day of IV abx and diuresis before plan of discharge home with HH. Pt already established with [facility] but new orders sent and goes to [facility] clinic for wound care at baseline. PT already cleared pt for being back to baseline and home with assist and HH. CARLA Mejia
[2024-12-24 20:00] VITALS: BP 129/63; PULSE 74; RESP 20; TEMP 36.3; O2SAT 94
[2024-12-25] MEDS: ACETAMINOPHEN 325 MG TABLET 650 MG PO (04:38)
[2024-12-25] MEDS: APIXABAN 5 MG TABLET PO (08:22)
[2024-12-25] MEDS: AMIODARONE 200 MG TABLET PO (08:22)
[2024-12-25] MEDS: FUROSEMIDE 40 MG TABLET PO (08:23)
[2024-12-25] MEDS: ISOSORBIDE MONONITRATE ER 30 MG TABLET 15 MG PO (08:23)
[2024-12-25] MEDS: NYSTATIN POWDER 15GM 1 APPLIC TOP (08:24)
[2024-12-25] MEDS: SODIUM CHLORIDE 0.9% FLUSH 10 ML IV (08:24)
[2024-12-25] MEDS: SPIRONOLACTONE 25 MG TABLET PO (08:24)
[2024-12-25 08:37] VITALS: BP 154/75; PULSE 62; RESP 18; TEMP 35.8; O2SAT 94
--- NOTE | 2024-12-25 13:04 | PM.DS.1 ---
History of Present Illness History of Present Illness Date Patient Seen: 12/25/24 Chief complaint: painfull infection in bilateral feet Narrative: The patient was a year old male with chronic lymphedema. He has been at home alone for 3 years since his . He was unable to walk, and transfers from bed to a wheelchair. He makes all of his meals in a microwave. His food is delivered to him by friends. He presents now with increased leg pain. He has chronic right knee pain in his on chronic suppressive antibiotics from Infectious Disease at [facility]. He has chronic redness of both feet and weeping. He was scheduled to transfer to wound care in [place] from [facility] in the next week to 2 weeks. He also has a pending echocardiogram to assess his heart function. He was on chronic amiodarone and apixaban. He takes chlorthalidone and spironolactone. He was not on a loop diuretic. He denies fevers, chills, or increased redness. He was unable to walk and has increased pain which led to him coming to the hospital today. He was a chronic systolic heart murmur. Discharge Providers Provider Date of admission: 12/22/24 15:44 Discharge Date: 12/25/24 Primary care physician: Tom Morales MD Consults: 12/21/24 08:34 Consult to Physical Therapy Evaluate & Treat Comment: Physician Instructions: Evaluate and Treat 12/21/24 08:54 Consult to Inpatient Wound Care Nurse Routine Comment: Reason for consultation: feet edema and wounds Has provider been notified: Yes 12/21/24 08:55 Consult to Wound Care Routine Comment: Consulting Provider: [facility] 12/21/24 11:03 Consult to Home Health Routine Comment: Reason For Exam: RN at discharge Discharge provider: Ferny Winn DO Summary Hospital Course Discharge Diagnosis: 1. Acute on chronic lymphedema especially affecting the feet, good response to switching from amlodipine to isosorbide mononitrate 2. Increased right knee pain in a patient on chronic suppressive antibiotics for knee infection, present on admission and improved 3. Atrial fibrillation and chronic anticoagulation and amiodarone, present on admission and active. 4. Morbid obesity with BMI 41.9, present on admission and active. 5. Hypertension, present on admission and active. Hospital Course: This is an 79-year-old male with a past medical history of atrial fibrillation, morbid obesity, hypertension and chronic lymphedema who presented with an inability to walk as well as increased lower extremity swelling, and pain. He was initially diuresed with good response, and improvement in his leg swelling. His home amlodipine was changed to isosorbide dinitrate as well. Patient was seen by wound care, recommended for continued antibiotics and dressing changes. Wound cultures grew Alcaligenes which was sensitive to ceftriaxone and Corynebacterium. The reliability of the swabs is undetermined, and the role of these bacteria in his presenting complaint is not entirely clear at this time. However with diuresis and antibiotics the patient did continue to have improvement in pain and swelling. Therefore, we will complete another 7 days of cefdinir and linezolid to adequately cover both of these. He should stop taking levofloxacin for now for chronic suppressive therapy until the completion of his antibiotics. For now he will continue wound care with [facility], but does request a switch to [facility] for wound care. Recommended dressing changes were noted on his discharge paperwork, and are noted in documentation from the wound care consultation during his stay. No other significant changes to his home medications are recommended at this time, and he can continue his home chlorthalidone and spironolactone for diuresis after discharge. Recommend continued follow-up with primary care in addition to wound care as noted above. Time Spent with Patient Time spent: Greater than 30 minutes Exam Vital Signs (past 8 hours): - 12/25/24 08:37 Temperature 96.4 F L Pulse Rate 62 Respiratory Rate 18 Blood Pressure 154/75 H Pulse Oximetry 94 Oxygen Flow Rate 0 Oxygen Delivery Method Room Air Oxygen Flow Rate 0 Narrative Exam Narrative: NAD, alert and oriented, fluent speech, calm. Normocephalic skull, EOMI, anicteric sclera, symmetric pupils. Oropharynx unremarkable, no droop. Neck supple, midline trachea, no adenopathy. Lungs clear, normal rate and effort. Heart regular, loud systolic murmur and no gallop or rub. Abdomen is soft, non distended and non tender. Extremities are notable for massive edema [id number] knees and very edematous feet. The for feet are red and weeping. There was no obvious open ulceration or purulent drainage. Skin is free of rash or lesions. Joints are not swollen or deformed. The right knee is not red or warm. Judgment appears to be normal. Objective Labs 12/22/24 04:55 12/24/24 05:46 [facility] Medical History (Updated 12/25/24 @ 09:47 by Ama Bradford PA-C) Cellulitis Social History household members: none alcohol intake: current Discharge Plan Discharge Plan Patient Disposition: Home Health Service Provider Discharge Comment: You were admitted to the hospital with lower leg cellulitis and edema. Improved after fluid removal. Wound cultures being treated with oral antibiotics. Follow up with wound care after discharge as previously scheduled. Wound care instructions. BID Bilateral - Coat foot in nystatin powder, place interdry sheets between each toe, cover with abd pads, wrap in gauze and coban Continue with wound care on discharge and referral to lymphadema therapy/ regular compression If continued infection, recommend outpatient ID referral. Nursing Discharge Comment: Please call your current wound care at [facility] and have your care transfered to [facility] per your request. [facility]'s number is [phone]. If you haven't heard from [facility] within 24 hours from requesting your care transfer, please call [facility] to ask about scheduling. Discharge orders & Medications Prescriptions: New isosorbide dinitrate 5 mg tablet 5 mg PO BID Qty: 60 0RF Rx Instructions: allow nitrate-free interval of 12-14 hrs per 24-hr period nystatin [Nystop] 100,000 unit/gram Powder 1 applic topical BID Qty: 30 0RF cefdinir 300 mg capsule 300 mg PO BID 7 Days Qty: 14 0RF linezolid 600 mg tablet 600 mg PO BID 7 Days Qty: 14 0RF Continued amiodarone 200 mg tablet 200 mg PO DAILY chlorthalidone 25 mg tablet 25 mg PO DAILY spironolactone 25 mg tablet 25 mg PO BID Eliquis 5 mg tablet 5 mg PO BID Discontinued amlodipine [Norvasc] 10 MG tablet 10 mg PO HS Qty: 0 levofloxacin 750 mg tablet 750 mg PO DAILY Follow up/Referrals: Ama Bradford PA-C [Advanced Dental Instructor] - Tom Morales MD [Primary Care Provider] - Lv Zambrano MD [Physician] - (new regimen with isordil ) Diet/Activity/Treatments Diet: Diet as Tolerated and Low-sodium Activity: No restrictions. Skin/Wound/Dressing Care Skin care: see above Visit Report/Discharge Packet Instructions: Low-Sodium Diet Stand Alone Forms: Patient Portal/API, Stroke Signs & Symptoms Discharge Data Primary Care Provider: Tom Morales VTE Deep Vein Thrombosis/Pulmonary Embolism Present on Admission: No
--- NOTE | 2024-12-25 13:13 | CM.DPC ---
DCP Cont. Reviewed EMR and team rounds for status updates. Pt has been medically cleared for home d/c today. Called [facility] and confirmed the d/c, and f/f has already been faxed. No further CM d/c needs identified at this time.
[2024-12-25] MEDS: cefTRIAXone 2,000 MG in SODIUM CHLORIDE 0.9% 100 ML 200 MG IV (13:30)
--- NOTE | 2024-12-25 16:00 | PC.NURSE ---
Discharge Note Patient A&O, VSS, RA, no complaints of pain/discomfort. Discharge packet reviewed with patient, all questions/concerns addressed. PIV discontinued. Patient able to dress self and pack all belongings with assistance. Patient taken down via wheelchair to POV.
== END 2024-12-25 15:40 | disposition home health service (06) | DRG 607 ==
LOC: ED 14:33 → AC 18:09
PROVIDERS: Admitting Provider Hospitalist; Emergency Provider Emergency Medicine; PCP Internal Medicine; Referring Provider Emergency Medicine; Visit Provider Hospitalist
DX: I89.0 Lymphedema, not elsewhere classified (principal); Z68.41 Body mass index [BMI] 40.0-44.9, adult; M00.861 Arthritis due to other bacteria, right knee; L03.116 Cellulitis of left lower limb; L03.115 Cellulitis of right lower limb; I48.91 Unspecified atrial fibrillation; E66.01 Morbid (severe) obesity due to excess calories; Z79.2 Long term (current) use of antibiotics; Z79.01 Long term (current) use of anticoagulants; I10 Essential (primary) hypertension; B96.89 Other specified bacterial agents as the cause of diseases classified elsewhere; Z99.3 Dependence on wheelchair
CPT/HCPCS: 36415; 80048; 80053; 83036; 83605; 84145; 85025; 85651; 86140; 87040; 87070; 87075; 87077; 87186; 87205; 97162; 97530; 99283; 99284; G0378; C8929; J0696; J2543; Q9957

== ENCOUNTER → 2025-01-02 13:00 | Outpatient (CLI) | payer MEDICARE, OTHER, SELFPAY ==
[2024-12-20 20:33] VITALS: BMI 41.2
== END ==
PROVIDERS: PCP Internal Medicine; Visit Provider Surgery
DX: I89.0 Lymphedema, not elsewhere classified (principal); L97.511 Non-pressure chronic ulcer of other part of right foot limited to breakdown of skin; L97.521 Non-pressure chronic ulcer of other part of left foot limited to breakdown of skin; E66.9 Obesity, unspecified; Z68.41 Body mass index [BMI] 40.0-44.9, adult; I10 Essential (primary) hypertension; E78.5 Hyperlipidemia, unspecified; I48.91 Unspecified atrial fibrillation
CPT/HCPCS: 29581; 99203; 99213

== ENCOUNTER → 2025-01-08 14:25 | Outpatient (CLI) | payer MEDICARE, OTHER, SELFPAY ==
[2024-12-20 20:33] VITALS: BMI 41.2
== END ==
LOC: WC 14:26
PROVIDERS: PCP Internal Medicine; Referring Provider Internal Medicine; Visit Provider Surgery
DX: I89.0 Lymphedema, not elsewhere classified (principal); L97.511 Non-pressure chronic ulcer of other part of right foot limited to breakdown of skin; L97.521 Non-pressure chronic ulcer of other part of left foot limited to breakdown of skin; R60.0 Localized edema; E66.9 Obesity, unspecified; Z68.41 Body mass index [BMI] 40.0-44.9, adult
CPT/HCPCS: 29581; 99213

== ENCOUNTER → 2025-01-10 14:45 | Outpatient (CLI) | payer MEDICARE, OTHER, SELFPAY ==
[2024-12-20 20:33] VITALS: BMI 41.2
== END ==
PROVIDERS: PCP Internal Medicine; Referring Provider Internal Medicine; Visit Provider Surgery
DX: I89.0 Lymphedema, not elsewhere classified (principal); L97.511 Non-pressure chronic ulcer of other part of right foot limited to breakdown of skin; L97.521 Non-pressure chronic ulcer of other part of left foot limited to breakdown of skin
CPT/HCPCS: 29581

== ENCOUNTER → 2025-01-15 15:07 | Outpatient (CLI) | payer MEDICARE, OTHER, SELFPAY ==
[2024-12-20 20:33] VITALS: BMI 41.2
== END ==
PROVIDERS: PCP Internal Medicine; Referring Provider Internal Medicine; Visit Provider Surgery
DX: I89.0 Lymphedema, not elsewhere classified (principal); L97.511 Non-pressure chronic ulcer of other part of right foot limited to breakdown of skin; L97.521 Non-pressure chronic ulcer of other part of left foot limited to breakdown of skin; E66.9 Obesity, unspecified; Z68.41 Body mass index [BMI] 40.0-44.9, adult
CPT/HCPCS: 29581; 99213

== ENCOUNTER → 2025-01-17 14:20 | Outpatient (CLI) | payer MEDICARE, OTHER, SELFPAY ==
[2024-12-20 20:33] VITALS: BMI 41.2
== END ==
PROVIDERS: PCP Internal Medicine; Referring Provider Internal Medicine; Visit Provider Surgery
DX: I89.0 Lymphedema, not elsewhere classified (principal); L97.811 Non-pressure chronic ulcer of other part of right lower leg limited to breakdown of skin; L97.821 Non-pressure chronic ulcer of other part of left lower leg limited to breakdown of skin
CPT/HCPCS: 29581

== ENCOUNTER → 2025-01-22 14:08 | Outpatient (CLI) | payer MEDICARE, OTHER, SELFPAY ==
[2024-12-20 20:33] VITALS: BMI 41.2
== END ==
LOC: WC 14:08
PROVIDERS: PCP Internal Medicine; Referring Provider Internal Medicine; Visit Provider Surgery
DX: I89.0 Lymphedema, not elsewhere classified (principal); L97.511 Non-pressure chronic ulcer of other part of right foot limited to breakdown of skin; L97.521 Non-pressure chronic ulcer of other part of left foot limited to breakdown of skin; E66.9 Obesity, unspecified; Z68.41 Body mass index [BMI] 40.0-44.9, adult
CPT/HCPCS: 29581; 99213

== ENCOUNTER → 2025-01-30 13:27 | Outpatient (CLI) | payer MEDICARE, OTHER, SELFPAY ==
[2024-12-20 20:33] VITALS: BMI 41.2
== END ==
LOC: WC 13:41
PROVIDERS: PCP Internal Medicine; Referring Provider Internal Medicine; Visit Provider Surgery
DX: I89.0 Lymphedema, not elsewhere classified (principal); L97.511 Non-pressure chronic ulcer of other part of right foot limited to breakdown of skin; L97.521 Non-pressure chronic ulcer of other part of left foot limited to breakdown of skin; E66.9 Obesity, unspecified; Z68.41 Body mass index [BMI] 40.0-44.9, adult
CPT/HCPCS: 29581; 99213

== ENCOUNTER → 2025-02-06 16:06 | Outpatient (CLI) | payer MEDICARE, OTHER, SELFPAY ==
[2024-12-20 20:33] VITALS: BMI 41.2
== END ==
LOC: WC 16:07
PROVIDERS: PCP Internal Medicine; Referring Provider Internal Medicine; Visit Provider Surgery
DX: I89.0 Lymphedema, not elsewhere classified (principal); L97.511 Non-pressure chronic ulcer of other part of right foot limited to breakdown of skin; L97.521 Non-pressure chronic ulcer of other part of left foot limited to breakdown of skin; E66.9 Obesity, unspecified; Z68.41 Body mass index [BMI] 40.0-44.9, adult
CPT/HCPCS: 99213; 99214

== ENCOUNTER → 2025-02-18 15:26 | Outpatient (CLI) | payer MEDICARE, OTHER, SELFPAY ==
[2024-12-20 20:33] VITALS: BMI 41.2
== END ==
LOC: WC 15:27
PROVIDERS: PCP Internal Medicine; Referring Provider Internal Medicine; Visit Provider Surgery
DX: I89.0 Lymphedema, not elsewhere classified (principal); L97.511 Non-pressure chronic ulcer of other part of right foot limited to breakdown of skin; L97.521 Non-pressure chronic ulcer of other part of left foot limited to breakdown of skin; E66.9 Obesity, unspecified; Z68.41 Body mass index [BMI] 40.0-44.9, adult
CPT/HCPCS: 29581; 99213

== ENCOUNTER → 2025-02-21 15:37 | Outpatient (CLI) | payer MEDICARE, OTHER, SELFPAY ==
[2024-12-20 20:33] VITALS: BMI 41.2
== END ==
LOC: WC 15:38
PROVIDERS: PCP Internal Medicine; Referring Provider Internal Medicine; Visit Provider Surgery
DX: I89.0 Lymphedema, not elsewhere classified (principal); L97.511 Non-pressure chronic ulcer of other part of right foot limited to breakdown of skin; L97.521 Non-pressure chronic ulcer of other part of left foot limited to breakdown of skin
CPT/HCPCS: 99213

== ENCOUNTER → 2025-02-25 13:11 | Outpatient (CLI) | payer MEDICARE, OTHER, SELFPAY ==
[2024-12-20 20:33] VITALS: BMI 41.2
== END ==
PROVIDERS: PCP Internal Medicine; Referring Provider Internal Medicine; Visit Provider Surgery
DX: I89.0 Lymphedema, not elsewhere classified (principal); L97.511 Non-pressure chronic ulcer of other part of right foot limited to breakdown of skin; L97.521 Non-pressure chronic ulcer of other part of left foot limited to breakdown of skin
CPT/HCPCS: 29581; 99213

== ENCOUNTER → 2025-02-28 13:36 | Outpatient (CLI) | payer MEDICARE, OTHER, SELFPAY ==
[2024-12-20 20:33] VITALS: BMI 41.2
== END ==
PROVIDERS: PCP Internal Medicine; Referring Provider Internal Medicine; Visit Provider Surgery
DX: I89.0 Lymphedema, not elsewhere classified (principal); L97.511 Non-pressure chronic ulcer of other part of right foot limited to breakdown of skin; L97.521 Non-pressure chronic ulcer of other part of left foot limited to breakdown of skin
CPT/HCPCS: 29581

== ENCOUNTER → 2025-03-05 13:04 | Outpatient (CLI) | payer MEDICARE, OTHER, SELFPAY ==
[2024-12-20 20:33] VITALS: BMI 41.2
== END ==
LOC: WC 13:05
PROVIDERS: PCP Internal Medicine; Referring Provider Internal Medicine; Visit Provider Surgery
DX: I89.0 Lymphedema, not elsewhere classified (principal); L97.511 Non-pressure chronic ulcer of other part of right foot limited to breakdown of skin; L97.521 Non-pressure chronic ulcer of other part of left foot limited to breakdown of skin; R60.0 Localized edema; Z99.3 Dependence on wheelchair; E66.9 Obesity, unspecified; Z68.41 Body mass index [BMI] 40.0-44.9, adult
CPT/HCPCS: 29581; 99213

== ENCOUNTER → 2025-03-08 14:39 | Outpatient (CLI) | payer MEDICARE, OTHER, SELFPAY ==
[2024-12-20 20:33] VITALS: BMI 41.2
== END ==
LOC: WC 14:40
PROVIDERS: PCP Internal Medicine; Referring Provider Internal Medicine; Visit Provider Physician Assistant
DX: I89.0 Lymphedema, not elsewhere classified (principal); L97.511 Non-pressure chronic ulcer of other part of right foot limited to breakdown of skin; L97.522 Non-pressure chronic ulcer of other part of left foot with fat layer exposed
CPT/HCPCS: 29581

== ENCOUNTER → 2025-03-12 13:00 | Outpatient (CLI) | payer MEDICARE, OTHER, SELFPAY ==
[2024-12-20 20:33] VITALS: BMI 41.2
== END ==
LOC: WC 13:10
PROVIDERS: PCP Internal Medicine; Referring Provider Internal Medicine; Visit Provider Surgery
DX: L97.511 Non-pressure chronic ulcer of other part of right foot limited to breakdown of skin (principal); I89.0 Lymphedema, not elsewhere classified; E66.01 Morbid (severe) obesity due to excess calories; Z68.41 Body mass index [BMI] 40.0-44.9, adult; Z59.82 Transportation insecurity
CPT/HCPCS: 29581; 99213

== ENCOUNTER → 2025-03-14 14:39 | Outpatient (CLI) | payer MEDICARE, OTHER, SELFPAY ==
[2024-12-20 20:33] VITALS: BMI 41.2
== END ==
LOC: WC 14:41
PROVIDERS: PCP Internal Medicine; Referring Provider Internal Medicine; Visit Provider Surgery
DX: I89.0 Lymphedema, not elsewhere classified (principal)
CPT/HCPCS: 29581

== ENCOUNTER → 2025-03-18 13:03 | Outpatient (CLI) | payer MEDICARE, OTHER, SELFPAY ==
[2024-12-20 20:33] VITALS: BMI 41.2
== END ==
LOC: WC 13:03
PROVIDERS: PCP Internal Medicine; Referring Provider Internal Medicine; Visit Provider Surgery
DX: L97.511 Non-pressure chronic ulcer of other part of right foot limited to breakdown of skin (principal); I89.0 Lymphedema, not elsewhere classified; E66.01 Morbid (severe) obesity due to excess calories; Z68.41 Body mass index [BMI] 40.0-44.9, adult; Z79.01 Long term (current) use of anticoagulants; I10 Essential (primary) hypertension; E78.5 Hyperlipidemia, unspecified; I48.91 Unspecified atrial fibrillation; Z99.3 Dependence on wheelchair
CPT/HCPCS: 29581; 99213

== ENCOUNTER → 2025-03-20 15:22 | Outpatient (CLI) | payer MEDICARE, OTHER, SELFPAY ==
[2024-12-20 20:33] VITALS: BMI 41.2
== END ==
LOC: WC 15:38
PROVIDERS: PCP Internal Medicine; Referring Provider Internal Medicine; Visit Provider Surgery
DX: I89.0 Lymphedema, not elsewhere classified (principal); L97.511 Non-pressure chronic ulcer of other part of right foot limited to breakdown of skin
CPT/HCPCS: 99212

== ENCOUNTER → 2025-04-16 12:47 | Outpatient (CLI) | payer MEDICARE, OTHER, SELFPAY ==
[2024-12-20 20:33] VITALS: BMI 41.2
== END ==
LOC: WC 12:47
PROVIDERS: PCP Internal Medicine; Referring Provider Internal Medicine; Visit Provider Surgery
DX: I89.0 Lymphedema, not elsewhere classified (principal); L97.511 Non-pressure chronic ulcer of other part of right foot limited to breakdown of skin; R60.0 Localized edema; Z79.01 Long term (current) use of anticoagulants
CPT/HCPCS: 29581; 99213

== ENCOUNTER → 2025-04-23 16:23 | Outpatient (CLI) | payer MEDICARE, OTHER, SELFPAY ==
[2024-12-20 20:33] VITALS: BMI 41.2
== END ==
LOC: WC 16:24
PROVIDERS: PCP Internal Medicine; Referring Provider Pharmacist Pharmacist Clinician (PhC)/ Clinical Pharmacy Specialist; Visit Provider Surgery
DX: I89.0 Lymphedema, not elsewhere classified (principal); L97.511 Non-pressure chronic ulcer of other part of right foot limited to breakdown of skin; R60.0 Localized edema; Z79.01 Long term (current) use of anticoagulants
CPT/HCPCS: 11042

== ENCOUNTER → 2025-04-29 09:35 | Outpatient (CLI) | payer MEDICARE, OTHER, SELFPAY ==
[2024-12-20 20:33] VITALS: BMI 41.2
== END ==
LOC: WC 09:35
PROVIDERS: PCP Internal Medicine; Referring Provider Internal Medicine; Visit Provider Surgery
DX: I89.0 Lymphedema, not elsewhere classified (principal); L97.512 Non-pressure chronic ulcer of other part of right foot with fat layer exposed; D23.72 Other benign neoplasm of skin of left lower limb, including hip; I48.91 Unspecified atrial fibrillation; Z79.01 Long term (current) use of anticoagulants; Z99.3 Dependence on wheelchair; E66.9 Obesity, unspecified; Z68.41 Body mass index [BMI] 40.0-44.9, adult; Z59.82 Transportation insecurity; M00.861 Arthritis due to other bacteria, right knee
CPT/HCPCS: 11042; 99213

== ENCOUNTER → 2025-05-06 08:45 | Outpatient (CLI) | payer MEDICARE, OTHER, SELFPAY ==
[2024-12-20 20:33] VITALS: BMI 41.2
== END ==
LOC: WC 08:46
PROVIDERS: PCP Internal Medicine; Referring Provider Internal Medicine; Visit Provider Surgery
DX: I89.0 Lymphedema, not elsewhere classified (principal); L97.512 Non-pressure chronic ulcer of other part of right foot with fat layer exposed; R60.0 Localized edema
CPT/HCPCS: 29581; 99212; 99213

== ENCOUNTER → 2025-05-07 14:39 | Outpatient (CLI) | payer MEDICARE, OTHER, SELFPAY ==
[2024-12-20 20:33] VITALS: BMI 41.2
== END ==
LOC: WC 14:40
PROVIDERS: PCP Internal Medicine; Referring Provider Internal Medicine; Visit Provider Surgery
DX: I89.0 Lymphedema, not elsewhere classified (principal); L97.512 Non-pressure chronic ulcer of other part of right foot with fat layer exposed; R60.0 Localized edema
CPT/HCPCS: 29581

== ENCOUNTER → 2025-05-13 10:17 | Outpatient (CLI) | payer MEDICARE, OTHER, SELFPAY ==
[2024-12-20 20:33] VITALS: BMI 41.2
== END ==
LOC: WC 10:17
PROVIDERS: PCP Internal Medicine; Referring Provider Internal Medicine; Visit Provider Surgery
DX: I89.0 Lymphedema, not elsewhere classified (principal); L97.512 Non-pressure chronic ulcer of other part of right foot with fat layer exposed; D23.72 Other benign neoplasm of skin of left lower limb, including hip; I48.91 Unspecified atrial fibrillation; Z79.01 Long term (current) use of anticoagulants; Z99.3 Dependence on wheelchair; E66.9 Obesity, unspecified; Z68.41 Body mass index [BMI] 40.0-44.9, adult; M00.861 Arthritis due to other bacteria, right knee; I10 Essential (primary) hypertension; K21.9 Gastro-esophageal reflux disease without esophagitis
CPT/HCPCS: 29581; 99213

== ENCOUNTER → 2025-05-20 08:52 | Outpatient (CLI) | payer MEDICARE, OTHER, SELFPAY ==
[2024-12-20 20:33] VITALS: BMI 41.2
== END ==
LOC: WC 08:58
PROVIDERS: PCP Internal Medicine; Referring Provider Internal Medicine; Visit Provider Surgery
DX: I89.0 Lymphedema, not elsewhere classified (principal); L97.512 Non-pressure chronic ulcer of other part of right foot with fat layer exposed; R60.0 Localized edema
CPT/HCPCS: 97602; 99213

== ENCOUNTER → 2025-05-27 15:57 | Outpatient (CLI) | payer MEDICARE, OTHER, SELFPAY ==
[2024-12-20 20:33] VITALS: BMI 41.2
== END ==
LOC: WC 15:58
PROVIDERS: PCP Internal Medicine; Referring Provider Internal Medicine; Visit Provider Surgery
DX: I89.0 Lymphedema, not elsewhere classified (principal)
CPT/HCPCS: 29581; 99213

== ENCOUNTER 2025-07-09 08:15 | Outpatient (RCR) | payer MEDICARE, OTHER, SELFPAY ==
[2024-12-20 20:33] VITALS: BMI 41.2
--- NOTE | 2025-02-19 16:25 | PT.OPPOC ---
Physical, Occupational & Speech Therapy At [facility] Current Diagnoses Lymphedema, not elsewhere classified (02/21/25) Non-pressure chronic ulcer of other part of right foot limited to breakdown of skin (02/21/25) Non-pressure chronic ulcer of other part of left foot limited to breakdown of skin (02/21/25) Visit Care Team Role Provider Type Tom Morales MD Primary Care Provider Non-Staff Specialty: Internal Medicine Address: [address] [place], [address] Email: Nba Aquino MD Attending Provider Physician Referring Provider Specialty: Wound Care Address: [address] [place] [address], [id number] Email: Plan Of Care PT-OP-B Current Condition Start: 02/19/25 13:49 Freq: Status: Active Protocol: Document 02/21/25 13:56 SAK (Rec: 02/21/25 14:15 SAK Laptop) Current Condition History of Current Condition Onset Date 1 year Current Complaints lymphedema History of Current Got infection right foot, transferred to left foot. Condition Has been seeing wound care first [facility], then ER at [facility] in hospital 5 days due to infection first week of December. Did home health care. Has been seeing [facility] since then. Leg size back to normal, left foot back to normal. Still some weeping between left toes and first and second toe on right. Uses wheelchair due to right knee infection since last fall, had IV medications, inpatient rehab x 6 wks. Can't put weight on right LE , hasn't walked since May 2024. Was using a 4WW for gait prior to stopping walking. 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 Has pneumatic pump feet to knees from [employer] hasn't used except 1x due to bandages so thick he couldn't feel it. 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 Wearing cast shoes with velcro. 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 Prior Treatments and wound care currently [facility] Tests PT-OP-T Assessment and Plan Start: 02/19/25 13:49 Freq: Status: Active Protocol: Document 02/21/25 13:56 SAK (Rec: 02/21/25 14:15 SAK Laptop) Physical Therapy Assessment Rehab Potential Rehabilitation Good Potential Evaluation Complexity Number of Personal 1-2 Factors/ Comorbidities Number of Body 3 Systems Impaired Clinical Evolving Presentation at Evaluation Impairments Impairments Edema,Integument,Strength Goals Two Impairment lymphedema life impact scale 50% Short Term Goal (STG Decrease Lymphedema Life Impact Scale to no greater ) than as measure of improved activity tolerance and quality of life. LTG Duration 05/22/25 One Impairment lymphedema kota LE's left toes to knee, right toes to mid thigh Short Term Goal (STG Patient will be instructed in all aspects of lymphedema ) self-care to include skin care, elevation, self- massage, self-bandaging/compression options, and lymphedema exercises. STG Duration 04/05/25 Pulper Operator Goal (LTG) Decrease patient?s lymphedema to a stable level (no increase or decrease greater than 1 cm over the course of 1 week), patient to be independent with all aspects of self-care for lymphedema, and will obtain appropriate compression garment for lymphedema management in the home. LTG Duration 05/22/25 Assessment Summary Assessment Patient presents to PT with function-limiting lymphedema bilateral LE's, long history of wound care to bilateral LE's first at [facility] and most recently [facility]. 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 Reports has been told not to weight bear on right LE so has used a wheelchair since last fall for mobility. His skin is characterized by edema, discoloration, hyperkeratosis, thickening, fungal infection mid to distal foot and toes, open wounds between toes. Currently being seen in wound care and is on chronic antibiotics. Feel he would benefit highly from PT for lymphedema treatment bilateral LE's in close consultation with wound care department to decrease his lymphedema and help him learn how to self-manage his lymphedema senior care including elevation, manual lymphatic drainage, exercise, skin care, and compression. May benefit from the use of a sequential pneumatic pump to assist with his self management. Discussed POC and patient was in agreement. Physical Therapy Plan Frequency and Duration Frequency of 20 visits Treatment Duration of 12 treatment (weeks) Plan of Care Start 02/19/25 Date Plan of Care End 05/22/25 Date Therapeutic Interventions Therapeutic Home Exercise Program,Lymphedema Management,Manual Interventions Therapy,Patient/Caregiver Education,Self-Care/Home Management,Soft Tissue Mobilization,Taping,Therapeutic Activities,Therapeutic Exercises Modalities Vasopneumatic Devices Next Visit Focus/Plan Next Note Type Treatment Note Next Visit Plan ASsess response to toe bandaging. Continue CDT. Consider trial pneumatic compression pump, also consider Artiflex and Comprilan to right knee and upper thigh, instruct patient in self bandaging proximally. Plan of Care Dates Plan of Care Start Date 02/19/25 Plan of Care End Date 05/22/25 Electronically Signed by: Yani Ozuna, PT 02/21/25 [id number] If you are in agreement with this Plan of Care, please return a signed and dated copy. I have reviewed this Plan of Care and certify that the skilled therapy services above are required to meet the patient?s needs. Physician Signature Date Printed Name and Credentials Clinical Instructor Signature Printed Name and Credentials
--- NOTE | 2025-02-19 16:25 | PT.OIE ---
Current Diagnoses Lymphedema, not elsewhere classified (02/21/25) Non-pressure chronic ulcer of other part of right foot limited to breakdown of skin (02/21/25) Non-pressure chronic ulcer of other part of left foot limited to breakdown of skin (02/21/25) Past Medical History (Last Updated 12/25/24 @ 09:47 by Ama Bradford PA-C) Cellulitis Visit Care Team Role Provider Type Tom Morales MD Primary Care Provider Non-Staff Specialty: Internal Medicine Address: [address] [place], [address] Email: Nba Aquino MD Attending Provider Physician Referring Provider Specialty: Wound Care Address: [address] [place] [address], [id number] Email: [email or web address] Physical Therapy Initial Evaluation PT-OP-A Visit Information Start: 02/19/25 13:49 Freq: Status: Active Protocol: Document 02/21/25 13:56 SAK (Rec: 02/21/25 14:15 SAK Laptop) Out-Patient Physical Therapy Visit Information Visit Information Visit Type Treatment Note Visit Start Time 13:45 Visit Stop Time 15:10 Visit Number 2 Evaluation Information Evaluation Date 02/19/25 PT-OP-B Current Condition Start: 02/19/25 13:49 Freq: Status: Active Protocol: Document 02/21/25 13:56 SAK (Rec: 02/21/25 14:15 SAK Laptop) Current Condition History of Current Condition Onset Date 1 year Current Complaints lymphedema History of Current Got infection right foot, transferred to left foot. Condition Has been seeing wound care first [place], then ER at [facility] in hospital 5 days due to infection first week of December. Did home health care. Has been seeing [facility] wound care since then. Leg size back to normal, left foot back to normal. Still some weeping between left toes and first and second toe on right. Uses wheelchair due to right knee infection since last fall, had IV medications, inpatient rehab x 6 wks. Can't put weight on right LE , hasn't walked since May 2024. Was using a 4WW for gait prior to stopping walking. 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 Has pneumatic pump feet to knees from [facility], hasn't used except 1x due to bandages so thick he couldn't feel it. 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 Wearing cast shoes with velcro. 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 Prior Treatments and wound care currently [facility] PT-OP-C Subjective Start: 02/19/25 13:49 Freq: Status: Active Protocol: Document 02/21/25 13:56 SAK (Rec: 02/21/25 14:15 SAK Laptop) OP-PT Subjective Patient Comments Patient Comments Watched cancer rehab PT video regarding self massage, reports found helpful. Just saw wound care, prepared to have toes bandaged today, brought silver antibacterial/wicking material from wound care for between toes. PT-OP-G Mobility & Gait Start: 02/19/25 13:49 Freq: Status: Active Protocol: Document 02/19/25 13:50 SAK (Rec: 02/19/25 15:45 SAK Laptop) OP Mobility Evaluation Bed Mobility Rolling indep Supine to and from indep Sit Transfers Bed to Chair indep but uncontrolled Transfers Car Transfers indep Wheelchair Management Type of Wheelchair manual OP Gait Assessment Comments Gait Comments unable to ambulate per recommendation infectious disease specialist PT-OP-J Posture/Palpation/Skin Start: 02/19/25 13:49 Freq: Status: Active Protocol: Document 02/19/25 13:50 SAK (Rec: 02/19/25 15:45 SAK Laptop) Palpation Assessment Location kota LE's Palpation Findings Edema Palpation Details no redness or excess warmth Skin Assessment Edema Assessment kota LE's Edema Type Non-Pitting Edema Appearance Discolored,Open Sores,Puffy Subjective Edema Tightness Description Comments hyperkeratosis, discoloration with hemosiderin staining and multiple varicosities, hyperplasia all kota LE's Multiple bruises kota LE's (pt. takes blood thinner) PT-OP-K Range of Motion Start: 02/19/25 13:49 Freq: Status: Active Protocol: Document 02/19/25 13:50 SAK (Rec: 02/19/25 15:45 SAK Laptop) Hip Goniometric Range of Motion Hip kota Hip ROM WFL Yes Knee Goniometric Range of Motion Knee kota Knee ROM WFL No Comments lacking full knee extension kota knees actively (lacking approx 10 deg left and 30 deg right), able to fully extend kota knees passively to WFL Ankle and Foot Goniometric Range of Motion Ankle and Foot kota Ankle/Foot ROM WFL No Ankle and Foot ROM Limitations Comments df to neutral passively, unable to actively df. pf 40 deg PT-OP-N Lymphedema Start: 02/19/25 13:49 Freq: Status: Active Protocol: Document 02/19/25 13:50 SAK (Rec: 02/19/25 15:45 SAK Laptop) Lymphedema Measurements Lower Extremity Circumference Measurements Right MT Heads 28.7 cm Mid-foot 30.1 cm Medial Malleolus 27 cm 10 cm From Medial 28.3 cm Malleolus 20 cm From Medial 38.9 cm Malleolus 30 cm From Medial 47.3 cm Malleolus 40 cm From Medial 54.7 cm Malleolus 50 cm From Medial 63.4 cm Malleolus 60 cm From Medial 67.8 cm Malleolus 70 cm From Medial 78.2 cm Malleolus 80 cm From Medial 87 cm Malleolus Knee Joint 61 cm Left MT Heads 28 cm Mid-foot 29.7 cm Medial Malleolus 26.5 cm 10 cm From Medial 27.4 cm Malleolus 20 cm From Medial 37.7 cm Malleolus 30 cm From Medial 47.7 cm Malleolus 40 cm From Medial 48.9 cm Malleolus 50 cm From Medial 57.4 cm Malleolus 60 cm From Medial 73.5 cm Malleolus 70 cm From Medial 83 cm Malleolus Knee Joint 56.1 cm PT-OP-Q Treatments Start: 02/19/25 13:49 Freq: Status: Active Protocol: Document 02/21/25 13:56 SAK (Rec: 02/21/25 16:10 SAK Laptop) Cardio Equipment Recumbent Stepper (Sci-Fit) Duration (Minutes) 7 Resistance 5 Seat Position 12 Lymphedema Treatment Manual Lymphatic Drainage Location for kota LE lymphedema, supine LE's elevated Duration 45 Comments review activation of lymph node regions, deep breathing, distal to proximal massage Lymphedema Wrapping Body Location kota LE's Materials Cramer antibacterial/wicking material folded between toes , toe bandages, CobanLite system applied kota lower legs MTP to knees Sequential Lymphedema Exercises Location supine hip, knee, ankle AROM Patient Education Lymphedema Pathology reviewed Lymphedema reviewed Prevention Self Manual reviewed Lymphatic Drainage Sequential reviewed Lymphedema Exercises Other Other Cetaphil lotion applied kota LE's ankles to groin (not on distal foot area of fungal infection; Nystatin powder applied by wound care prior to PT) PT-OP-T Assessment and Plan Start: 02/19/25 13:49 Freq: Status: Active Protocol: Document 02/21/25 13:56 SAK (Rec: 02/21/25 14:15 SAK Laptop) Physical Therapy Assessment Rehab Potential Rehabilitation Good Potential Evaluation Complexity Number of Personal 1-2 Factors/ Comorbidities Number of Body 3 Systems Impaired Clinical Evolving Presentation at Evaluation Impairments Impairments Edema,Integument,Strength Goals Two Impairment lymphedema life impact scale 50% Short Term Goal (STG Decrease Lymphedema Life Impact Scale to no greater ) than as measure of improved activity tolerance and quality of life. LTG Duration 05/22/25 One Impairment lymphedema kota LE's left toes to knee, right toes to mid thigh Short Term Goal (STG Patient will be instructed in all aspects of lymphedema ) self-care to include skin care, elevation, self- massage, self-bandaging/compression options, and lymphedema exercises. STG Duration 04/05/25 [facility] Farmer Goal (LTG) Decrease patient?s lymphedema to a stable level (no increase or decrease greater than 1 cm over the course of 1 week), patient to be independent with all aspects of self-care for lymphedema, and will obtain appropriate compression garment for lymphedema management in the home. LTG Duration 05/22/25 Assessment Summary Assessment Patient presents to PT with function-limiting lymphedema bilateral LE's, long history of wound care to bilateral LE's first at [facility] and most recently [facility]. 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 Reports has been told not to weight bear on right LE so has used a wheelchair since last fall for mobility. His skin is characterized by edema, discoloration, hyperkeratosis, thickening, fungal infection mid to distal foot and toes, open wounds between toes. Currently being seen in wound care and is on chronic antibiotics. Feel he would benefit highly from PT for lymphedema treatment bilateral LE's in close consultation with wound care department to decrease his lymphedema and help him learn how to self-manage his lymphedema rn long term care including elevation, manual lymphatic drainage, exercise, skin care, and compression. May benefit from the use of a sequential pneumatic pump to assist with his self management. Discussed POC and patient was in agreement. Physical Therapy Plan Frequency and Duration Frequency of 20 visits Treatment Duration of 12 treatment (weeks) Plan of Care Start 02/19/25 Date Plan of Care End 05/22/25 Date Therapeutic Interventions Therapeutic Home Exercise Program,Lymphedema Management,Manual Interventions Therapy,Patient/Caregiver Education,Self-Care/Home Management,Soft Tissue Mobilization,Taping,Therapeutic Activities,Therapeutic Exercises Modalities Vasopneumatic Devices Next Visit Focus/Plan Next Note Type Treatment Note Next Visit Plan ASsess response to toe bandaging. Continue CDT. Consider trial pneumatic compression pump, also consider Artiflex and Comprilan to right knee and upper thigh, instruct patient in self bandaging proximally.
--- NOTE | 2025-02-21 16:26 | PT.OTN ---
Current Diagnoses Lymphedema, not elsewhere classified (02/21/25) Non-pressure chronic ulcer of other part of right foot limited to breakdown of skin (02/21/25) Non-pressure chronic ulcer of other part of left foot limited to breakdown of skin (02/21/25) Physical Therapy Treatment Note PT-OP-A Visit Information Start: 02/19/25 13:49 Freq: Status: Active Protocol: Document 02/21/25 13:56 SAK (Rec: 02/21/25 14:15 SAK Laptop) Out-Patient Physical Therapy Visit Information Visit Information Visit Type Treatment Note Visit Start Time 13:45 Visit Stop Time 15:10 Visit Number 2 Evaluation Information Evaluation Date 02/19/25 PT-OP-B Current Condition Start: 02/19/25 13:49 Freq: Status: Active Protocol: Document 02/21/25 13:56 SAK (Rec: 02/21/25 14:15 SAK Laptop) Current Condition History of Current Condition Onset Date 1 year Current Complaints lymphedema History of Current Got infection right foot, transferred to left foot. Condition Has been seeing wound care first [place], then ER at [facility] in hospital 5 days due to infection first week of December. Did home health care. Has been seeing [facility] wound care since then. Leg size back to normal, left foot back to normal. Still some weeping between left toes and first and second toe on right. Uses wheelchair due to right knee infection since last fall, had IV medications, inpatient rehab x 6 wks. Can't put weight on right LE , hasn't walked since May 2024. Was using a 4WW for gait prior to stopping walking. 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 Has pneumatic pump feet to knees from [employer], hasn't used except 1x due to bandages so thick he couldn't feel it. 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 Wearing cast shoes with velcro. 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 Prior Treatments and wound care currently [facility] Tests PT-OP-C Subjective Start: 02/19/25 13:49 Freq: Status: Active Protocol: Document 02/21/25 13:56 SAK (Rec: 02/21/25 14:15 SAK Laptop) OP-PT Subjective Patient Comments Patient Comments Watched cancer rehab PT video regarding self massage, reports found helpful. Just saw wound care, prepared to have toes bandaged today, brought silver antibacterial/wicking material from wound care for between toes. PT-OP-G Mobility & Gait Start: 02/19/25 13:49 Freq: Status: Active Protocol: Document 02/19/25 13:50 SAK (Rec: 02/19/25 15:45 SAK Laptop) OP Mobility Evaluation Bed Mobility Rolling indep Supine to and from indep Sit Transfers Bed to Chair indep but uncontrolled Transfers Car Transfers indep Wheelchair Management Type of Wheelchair manual OP Gait Assessment Comments Gait Comments unable to ambulate per recommendation infectious disease specialist PT-OP-J Posture/Palpation/Skin Start: 02/19/25 13:49 Freq: Status: Active Protocol: Document 02/19/25 13:50 SAK (Rec: 02/19/25 15:45 SAK Laptop) Palpation Assessment Location kota LE's Palpation Findings Edema Palpation Details no redness or excess warmth Skin Assessment Edema Assessment kota LE's Edema Type Non-Pitting Edema Appearance Discolored,Open Sores,Puffy Subjective Edema Tightness Description Comments hyperkeratosis, discoloration with hemosiderin staining and multiple varicosities, hyperplasia all kota LE's Multiple bruises kota LE's (pt. takes blood thinner) PT-OP-K Range of Motion Start: 02/19/25 13:49 Freq: Status: Active Protocol: Document 02/19/25 13:50 SAK (Rec: 02/19/25 15:45 SAK Laptop) Hip Goniometric Range of Motion Hip kota Hip ROM WFL Yes Knee Goniometric Range of Motion Knee kota Knee ROM WFL No Comments lacking full knee extension kota knees actively (lacking approx 10 deg left and 30 deg right), able to fully extend kota knees passively to WFL Ankle and Foot Goniometric Range of Motion Ankle and Foot kota Ankle/Foot ROM WFL No Ankle and Foot ROM Limitations Comments df to neutral passively, unable to actively df. pf 40 deg PT-OP-N Lymphedema Start: 02/19/25 13:49 Freq: Status: Active Protocol: Document 02/19/25 13:50 SAK (Rec: 02/19/25 15:45 SAK Laptop) Lymphedema Measurements Lower Extremity Circumference Measurements Right MT Heads 28.7 cm Mid-foot 30.1 cm Medial Malleolus 27 cm 10 cm From Medial 28.3 cm Malleolus 20 cm From Medial 38.9 cm Malleolus 30 cm From Medial 47.3 cm Malleolus 40 cm From Medial 54.7 cm Malleolus 50 cm From Medial 63.4 cm Malleolus 60 cm From Medial 67.8 cm Malleolus 70 cm From Medial 78.2 cm Malleolus 80 cm From Medial 87 cm Malleolus Knee Joint 61 cm Left MT Heads 28 cm Mid-foot 29.7 cm Medial Malleolus 26.5 cm 10 cm From Medial 27.4 cm Malleolus 20 cm From Medial 37.7 cm Malleolus 30 cm From Medial 47.7 cm Malleolus 40 cm From Medial 48.9 cm Malleolus 50 cm From Medial 57.4 cm Malleolus 60 cm From Medial 73.5 cm Malleolus 70 cm From Medial 83 cm Malleolus Knee Joint 56.1 cm PT-OP-Q Treatments Start: 02/19/25 13:49 Freq: Status: Active Protocol: Document 02/21/25 13:56 [facility] (Rec: 02/21/25 16:10 [facility] Laptop) Cardio Equipment Recumbent Stepper (Sci-Fit) Duration (Minutes) 7 Resistance 5 Seat Position 12 Lymphedema Treatment Manual Lymphatic Drainage Location for kota LE lymphedema, supine LE's elevated Duration 45 Comments review activation of lymph node regions, deep breathing, distal to proximal massage Lymphedema Wrapping Body Location kota LE's Materials Cramer antibacterial/wicking material folded between toes , toe bandages, CobanLite system applied kota lower legs MTP to knees Sequential Lymphedema Exercises Location supine hip, knee, ankle AROM Patient Education Lymphedema Pathology reviewed Lymphedema reviewed Prevention Self Manual reviewed Lymphatic Drainage Sequential reviewed Lymphedema Exercises Other Other Cetaphil lotion applied kota LE's ankles to groin (not on distal foot area of fungal infection; Nystatin powder applied by wound care prior to PT) PT-OP-T Assessment and Plan Start: 02/19/25 13:49 Freq: Status: Active Protocol: Document 02/21/25 13:56 [facility] (Rec: 02/21/25 14:15 [facility] Laptop) Physical Therapy Assessment Rehab Potential Rehabilitation Good Potential Evaluation Complexity Number of Personal 1-2 Factors/ Comorbidities Number of Body 3 Systems Impaired Clinical Evolving Presentation at Evaluation Impairments Impairments Edema,Integument,Strength Goals Two Impairment lymphedema life impact scale 50% Short Term Goal (STG Decrease Lymphedema Life Impact Scale to no greater ) than as measure of improved activity tolerance and quality of life. LTG Duration 05/22/25 One Impairment lymphedema kota LE's left toes to knee, right toes to mid thigh Short Term Goal (STG Patient will be instructed in all aspects of lymphedema ) self-care to include skin care, elevation, self- massage, self-bandaging/compression options, and lymphedema exercises. STG Duration 04/05/25 [facility] Goal (LTG) Decrease patient?s lymphedema to a stable level (no increase or decrease greater than 1 cm over the course of 1 week), patient to be independent with all aspects of self-care for lymphedema, and will obtain appropriate compression garment for lymphedema management in the home. LTG Duration 05/22/25 Assessment Summary Assessment Patient presents to PT with function-limiting lymphedema bilateral LE's, long history of wound care to bilateral LE's first at [facility] and most recently [facility]. 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 Reports has been told not to weight bear on right LE so has used a wheelchair since last fall for mobility. His skin is characterized by edema, discoloration, hyperkeratosis, thickening, fungal infection mid to distal foot and toes, open wounds between toes. Currently being seen in wound care and is on chronic antibiotics. Feel he would benefit highly from PT for lymphedema treatment bilateral LE's in close consultation with wound care department to decrease his lymphedema and help him learn how to self-manage his lymphedema chcf including elevation, manual lymphatic drainage, exercise, skin care, and compression. May benefit from the use of a sequential pneumatic pump to assist with his self management. Discussed POC and patient was in agreement. Physical Therapy Plan Frequency and Duration Frequency of 20 visits Treatment Duration of 12 treatment (weeks) Plan of Care Start 02/19/25 Date Plan of Care End 05/22/25 Date Therapeutic Interventions Therapeutic Home Exercise Program,Lymphedema Management,Manual Interventions Therapy,Patient/Caregiver Education,Self-Care/Home Management,Soft Tissue Mobilization,Taping,Therapeutic Activities,Therapeutic Exercises Modalities Vasopneumatic Devices Next Visit Focus/Plan Next Note Type Treatment Note Next Visit Plan ASsess response to toe bandaging. Continue CDT. Consider trial pneumatic compression pump, also consider Artiflex and Comprilan to right knee and upper thigh, instruct patient in self bandaging proximally.
--- NOTE | 2025-03-11 17:21 | PT.OTN ---
Current Diagnoses Lymphedema, not elsewhere classified (03/11/25) Non-pressure chronic ulcer of other part of right foot limited to breakdown of skin (03/11/25) Non-pressure chronic ulcer of other part of left foot limited to breakdown of skin (03/11/25) Physical Therapy Treatment Note PT-OP-A Visit Information Start: 02/19/25 13:49 Freq: Status: Active Protocol: Document 03/11/25 12:59 SAK (Rec: 03/11/25 13:07 SAK Laptop) Out-Patient Physical Therapy Visit Information Visit Information Visit Type Treatment Note Visit Start Time 12:59 Visit Stop Time 14:32 Visit Number 3 Evaluation Information Evaluation Date 02/19/25 PT-OP-B Current Condition Start: 02/19/25 13:49 Freq: Status: Active Protocol: Document 03/11/25 12:59 SAK (Rec: 03/11/25 13:07 SAK Laptop) Current Condition History of Current Condition Onset Date 1 year Current Complaints lymphedema History of Current Got infection right foot, transferred to left foot. Condition Has been seeing wound care first [place], then ER at [facility] in hospital 5 days due to infection first week of December. Did home health care. Has been seeing [place] wound care since then. Leg size back to normal, left foot back to normal. Still some weeping between left toes and first and second toe on right. Uses wheelchair due to right knee infection since last fall, had IV medications, inpatient rehab x 6 wks. Can't put weight on right LE , hasn't walked since May 2024. Was using a 4WW for gait prior to stopping walking. 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 Has pneumatic pump feet to knees from [employer], hasn't used except 1x due to bandages so thick he couldn't feel it. 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 Wearing cast shoes with velcro. 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 Prior Treatments and wound care currently [facility] Tests PT-OP-C Subjective Start: 02/19/25 13:49 Freq: Status: Active Protocol: Document 03/11/25 12:59 SAK (Rec: 03/11/25 13:07 SAK Laptop) OP-PT Subjective Patient Comments Patient Comments Saw wound care on Tuesday, states doctor was pleased, wounds appear to be healing. Stated toes were reduced in size after PT bandaging but hasn't had done since. Is hopeful for PT to instruct wound care nursing. PT-OP-G Mobility & Gait Start: 02/19/25 13:49 Freq: Status: Active Protocol: Document 02/19/25 13:50 SAK (Rec: 02/19/25 15:45 SAK Laptop) OP Mobility Evaluation Bed Mobility Rolling indep Supine to and from indep Sit Transfers Bed to Chair indep but uncontrolled Transfers Car Transfers indep Wheelchair Management Type of Wheelchair manual OP Gait Assessment Comments Gait Comments unable to ambulate per recommendation infectious disease specialist [facility] PT-OP-J Posture/Palpation/Skin Start: 02/19/25 13:49 Freq: Status: Active Protocol: Document 02/19/25 13:50 SAK (Rec: 02/19/25 15:45 SAK Laptop) Palpation Assessment Location kota LE's Palpation Findings Edema Palpation Details no redness or excess warmth Skin Assessment Edema Assessment kota LE's Edema Type Non-Pitting Edema Appearance Discolored,Open Sores,Puffy Subjective Edema Tightness Description Comments hyperkeratosis, discoloration with hemosiderin staining and multiple varicosities, hyperplasia all kota LE's Multiple bruises kota LE's (pt. takes blood thinner) PT-OP-K Range of Motion Start: 02/19/25 13:49 Freq: Status: Active Protocol: Document 02/19/25 13:50 SAK (Rec: 02/19/25 15:45 SAK Laptop) Hip Goniometric Range of Motion Hip kota Hip ROM WFL Yes Knee Goniometric Range of Motion Knee kota Knee ROM WFL No Comments lacking full knee extension kota knees actively (lacking approx 10 deg left and 30 deg right), able to fully extend kota knees passively to WFL Ankle and Foot Goniometric Range of Motion Ankle and Foot kota Ankle/Foot ROM WFL No Ankle and Foot ROM Limitations Comments df to neutral passively, unable to actively df. pf 40 deg PT-OP-N Lymphedema Start: 02/19/25 13:49 Freq: Status: Active Protocol: Document 03/11/25 12:59 SAK (Rec: 03/11/25 14:28 [facility] Laptop) Lymphedema Measurements Lower Extremity Circumference Measurements Right MT Heads 29.2 cm Mid-foot 30 cm Medial Malleolus 27 cm 10 cm From Medial 28.3 cm Malleolus 20 cm From Medial 38.9 cm Malleolus 30 cm From Medial 48.3 cm Malleolus 40 cm From Medial 56.8 cm Malleolus 50 cm From Medial 65.4 cm Malleolus 60 cm From Medial 68.3 cm Malleolus 70 cm From Medial 75.3 cm Malleolus Knee Joint 62.5 cm Left MT Heads 27.8 cm Mid-foot 29.4 cm Medial Malleolus 26.8 cm 10 cm From Medial 28 cm Malleolus 20 cm From Medial 39.2 cm Malleolus 30 cm From Medial 46.4 cm Malleolus 40 cm From Medial 52.4 cm Malleolus 50 cm From Medial 66.2 cm Malleolus 60 cm From Medial 75.2 cm Malleolus 70 cm From Medial 81 cm Malleolus Knee Joint 57 cm PT-OP-Q Treatments Start: 02/19/25 13:49 Freq: Status: Active Protocol: Document 03/11/25 12:59 [facility] (Rec: 03/11/25 13:07 [facility] Laptop) Lymphedema Treatment Manual Lymphatic Drainage Location for kota LE lymphedema, supine LE's elevated Duration 45 Comments review activation of lymph node regions, deep breathing, distal to proximal massage Lymphedema Wrapping Body Location kota LE's Materials Cramer antibacterial/wicking material folded between toes , toe bandages, CobanLite system applied kota lower legs MTP to knees Sequential Lymphedema Exercises Location supine hip, knee, ankle AROM Other Other Cetaphil lotion applied kota LE's ankles to groin (not on distal foot area of fungal infection; Nystatin powder applied by wound care prior to PT) Pneumatic sequential pump applied right LE 45 mm HG distally with 5% reduction with each subsequent chamber proximally x 45 min with notable improvement after right LE. PT-OP-T Assessment and Plan Start: 02/19/25 13:49 Freq: Status: Active Protocol: Document 03/11/25 12:59 [facility] (Rec: 03/11/25 13:07 [facility] Laptop) Physical Therapy Assessment Impairments Impairments Edema,Integument,Strength Goals Two Impairment lymphedema life impact scale 50% Short Term Goal (STG Decrease Lymphedema Life Impact Scale to no greater ) than 35% as measure of improved activity tolerance and quality of life. Nylon Mender Goal (LTG) Decrease Lymphedema Life Impact Scale to no greater than 20% as measure of improved activity tolerance and quality of life. LTG Duration 05/22/25 One Impairment lymphedema kota LE's left toes to knee, right toes to mid thigh Short Term Goal (STG Patient will be instructed in all aspects of lymphedema ) self-care to include skin care, elevation, self- massage, self-bandaging/compression options, and lymphedema exercises. STG Duration 04/05/25 Fpc Goal (LTG) Decrease patient?s lymphedema to a stable level (no increase or decrease greater than 1 cm over the course of 1 week), patient to be independent with all aspects of self-care for lymphedema, and will obtain appropriate compression garment for lymphedema management in the home. LTG Duration 05/22/25 Assessment Summary Assessment Patient reporting improving wounds. Stated toes were reduced in size after PT bandaging but hasn't had done since. Is hopeful for PT to instruct wound care nursing. Circumferential measurements increased especially right knee since last seen in PT February 21. Patient activity level low due to knee issues, encouraged HEP as tolerated. TRial pneumatic compression pump right LE today with good tolerance at 45 mm HG max; may benefit from use at home. Physical Therapy Plan Frequency and Duration Frequency of 20 visits Treatment Duration of 12 treatment (weeks) Plan of Care Start 02/19/25 Date Plan of Care End 05/22/25 Date Therapeutic Interventions Therapeutic Home Exercise Program,Lymphedema Management,Manual Interventions Therapy,Patient/Caregiver Education,Self-Care/Home Management,Soft Tissue Mobilization,Taping,Therapeutic Activities,Therapeutic Exercises Modalities Vasopneumatic Devices Next Visit Focus/Plan Next Note Type Treatment Note Next Visit Plan Assess response to pneumatic compression pump, continue CDT. Consider Artiflex and Comprilan to right knee and upper thigh, instruct patient in self bandaging proximally. Trial NuStep for ther ex
--- NOTE | 2025-03-14 13:30 | PT-OP ANOTE ---
DNS, LVM asking for call back. Notified patient he will receive $50 no show fee.
--- NOTE | 2025-03-20 18:33 | PT.OTN ---
Current Diagnoses Lymphedema, not elsewhere classified (03/20/25) Non-pressure chronic ulcer of other part of right foot limited to breakdown of skin (03/20/25) Non-pressure chronic ulcer of other part of left foot limited to breakdown of skin (03/20/25) Physical Therapy Treatment Note PT-OP-A Visit Information Start: 02/19/25 13:49 Freq: Status: Active Protocol: Document 03/20/25 16:30 AB (Rec: 03/20/25 18:33 AB [id number]) Out-Patient Physical Therapy Visit Information Visit Information Visit Type Treatment Note Visit Start Time 16:20 Visit Stop Time 18:05 Visit Number 4 Number of TELEGRAPHIC SERVICE DISPATCHER Visits 1 PT-OP-B Current Condition Start: 02/19/25 13:49 Freq: Status: Active Protocol: Document 03/11/25 12:59 SAK (Rec: 03/11/25 13:07 SAK Laptop) Current Condition History of Current Condition Onset Date 1 year Current Complaints lymphedema History of Current Got infection right foot, transferred to left foot. Condition Has been seeing wound care first [place], then ER at [facility] in hospital 5 days due to infection first week of December. Did home health care. Has been seeing [place] wound care since then. Leg size back to normal, left foot back to normal. Still some weeping between left toes and first and second toe on right. Uses wheelchair due to right knee infection since last fall, had IV medications, inpatient rehab x 6 wks. Can't put weight on right LE , hasn't walked since May 2024. Was using a 4WW for gait prior to stopping walking. 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 Has pneumatic pump feet to knees from [employer], hasn't used except 1x due to bandages so thick he couldn't feel it. 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 Wearing cast shoes with velcro. 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 Prior Treatments and wound care currently [facility] Tests PT-OP-C Subjective Start: 02/19/25 13:49 Freq: Status: Active Protocol: Document 03/20/25 16:30 AB (Rec: 03/20/25 18:33 AB [id number]) OP-PT Subjective Patient Comments Patient Comments Patient reports the L foot is nearly healed, R continues to have weeping. PT-OP-G Mobility & Gait Start: 02/19/25 13:49 Freq: Status: Active Protocol: Document 02/19/25 13:50 SAK (Rec: 02/19/25 15:45 SAK Laptop) OP Mobility Evaluation Bed Mobility Rolling indep Supine to and from indep Sit Transfers Bed to Chair indep but uncontrolled Transfers Car Transfers indep Wheelchair Management Type of Wheelchair manual OP Gait Assessment Comments Gait Comments unable to ambulate per recommendation infectious disease specialist PT-OP-J Posture/Palpation/Skin Start: 02/19/25 13:49 Freq: Status: Active Protocol: Document 02/19/25 13:50 SAK (Rec: 02/19/25 15:45 SAK Laptop) Palpation Assessment Location kota LE's Palpation Findings Edema Palpation Details no redness or excess warmth Skin Assessment Edema Assessment kota LE's Edema Type Non-Pitting Edema Appearance Discolored,Open Sores,Puffy Subjective Edema Tightness Description Comments hyperkeratosis, discoloration with hemosiderin staining and multiple varicosities, hyperplasia all kota LE's Multiple bruises kota LE's (pt. takes blood thinner) PT-OP-K Range of Motion Start: 02/19/25 13:49 Freq: Status: Active Protocol: Document 02/19/25 13:50 SAK (Rec: 02/19/25 15:45 SAK Laptop) Hip Goniometric Range of Motion Hip kota Hip ROM WFL Yes Knee Goniometric Range of Motion Knee kota Knee ROM WFL No Comments lacking full knee extension kota knees actively (lacking approx 10 deg left and 30 deg right), able to fully extend kota knees passively to WFL Ankle and Foot Goniometric Range of Motion Ankle and Foot kota Ankle/Foot ROM WFL No Ankle and Foot ROM Limitations Comments df to neutral passively, unable to actively df. pf 40 deg PT-OP-N Lymphedema Start: 02/19/25 13:49 Freq: Status: Active Protocol: Document 03/20/25 16:30 AB (Rec: 03/20/25 18:33 AB [id number]) Lymphedema Measurements Lower Extremity Circumference Measurements Right MT Heads 28.9 cm Mid-foot 31 cm Medial Malleolus 27.1 cm 10 cm From Medial 29.8 cm Malleolus 20 cm From Medial 42.2 cm Malleolus 30 cm From Medial 47.5 cm Malleolus 40 cm From Medial 57.8 cm Malleolus 50 cm From Medial 64.6 cm Malleolus 60 cm From Medial 70.5 cm Malleolus 70 cm From Medial 80.1 cm Malleolus Knee Joint 58.6 cm Left MT Heads 26.6 cm Mid-foot 29.9 cm Medial Malleolus 27.2 cm 10 cm From Medial 29.6 cm Malleolus 20 cm From Medial 41.5 cm Malleolus 30 cm From Medial 47.3 cm Malleolus 40 cm From Medial 54.6 cm Malleolus 50 cm From Medial 63.4 cm Malleolus 60 cm From Medial 74.9 cm Malleolus 70 cm From Medial 82.2 cm Malleolus Knee Joint 53.1 cm PT-OP-Q Treatments Start: 02/19/25 13:49 Freq: Status: Active Protocol: Document 03/20/25 16:30 AB (Rec: 03/20/25 18:33 AB [id number]) Lymphedema Treatment Manual Lymphatic Drainage Location for kota LE lymphedema, supine LE's elevated Comments drains, highways ant and bilateral LE's anteriorly Lymphedema Wrapping Body Location kota LE's Materials Cramer antibacterial/wicking material folded between toes , toe bandages, CobanLite system applied kota lower legs MTP to knees Sequential Lymphedema Exercises Location breathing from diaphragm, glutes, ankles PT-OP-R Modalities Start: 02/19/25 13:49 Freq: Status: Active Protocol: Document 03/20/25 16:30 AB (Rec: 03/20/25 18:33 AB [id number]) Compression Pump Treatment Treatment Location bilateral LE's Pressure Amount ( 45 mmHg) (mmHG) Treatment Comments L LE while manual performed on drains, ant highways and R LE and R LE on pump while L LE MLD performed and toe bandaging L LE. PT-OP-T Assessment and Plan Start: 02/19/25 13:49 Freq: Status: Active Protocol: Document 03/20/25 16:30 AB (Rec: 03/20/25 18:33 AB [id number]) Physical Therapy Assessment Goals Two Impairment lymphedema life impact scale 50% Short Term Goal (STG Decrease Lymphedema Life Impact Scale to no greater ) than 35% as measure of improved activity tolerance and quality of life. Detention Goal (LTG) Decrease Lymphedema Life Impact Scale to no greater than 20% as measure of improved activity tolerance and quality of life. LTG Duration 05/22/25 One Impairment lymphedema kota LE's left toes to knee, right toes to mid thigh Short Term Goal (STG Patient will be instructed in all aspects of lymphedema ) self-care to include skin care, elevation, self- massage, self-bandaging/compression options, and lymphedema exercises. STG Duration 04/05/25 Conflicts Analyst Goal (LTG) Decrease patient?s lymphedema to a stable level (no increase or decrease greater than 1 cm over the course of 1 week), patient to be independent with all aspects of self-care for lymphedema, and will obtain appropriate compression garment for lymphedema management in the home. LTG Duration 05/22/25 Assessment Summary Assessment Measurements with more areas of increase vs decreased bilateral LE's, but patient reports toe bandaging made a significant change/improvement per nursing.
--- NOTE | 2025-03-22 17:40 | PT.OTN ---
Current Diagnoses Lymphedema, not elsewhere classified (03/22/25) Non-pressure chronic ulcer of other part of right foot limited to breakdown of skin (03/22/25) Non-pressure chronic ulcer of other part of left foot limited to breakdown of skin (03/22/25) Physical Therapy Treatment Note PT-OP-A Visit Information Start: 02/19/25 13:49 Freq: Status: Active Protocol: Document 03/22/25 14:33 AB (Rec: 03/22/25 17:40 AB [id number]) Out-Patient Physical Therapy Visit Information Visit Information Visit Type Treatment Note Visit Start Time 14:33 Visit Stop Time 16:19 Visit Number 5 Number of SIDE LASTER TACK Visits 2 PT-OP-B Current Condition Start: 02/19/25 13:49 Freq: Status: Active Protocol: Document 03/11/25 12:59 SAK (Rec: 03/11/25 13:07 SAK Laptop) Current Condition History of Current Condition Onset Date 1 year Current Complaints lymphedema History of Current Got infection right foot, transferred to left foot. Condition Has been seeing wound care first [place], then ER at [facility] in hospital 5 days due to infection first week of December. Did home health care. Has been seeing [place] wound care since then. Leg size back to normal, left foot back to normal. Still some weeping between left toes and first and second toe on right. Uses wheelchair due to right knee infection since last fall, had IV medications, inpatient rehab x 6 wks. Can't put weight on right LE , hasn't walked since May 2024. Was using a 4WW for gait prior to stopping walking. 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 Has pneumatic pump feet to knees from [employer], hasn't used except 1x due to bandages so thick he couldn't feel it. 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 Wearing cast shoes with velcro. 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 Prior Treatments and wound care currently [facility] Tests PT-OP-C Subjective Start: 02/19/25 13:49 Freq: Status: Active Protocol: Document 03/22/25 14:33 AB (Rec: 03/22/25 17:40 AB [id number]) OP-PT Subjective Patient Comments Patient Comments Patient reports wound care noted red lines edge of toe wrap bandaging. PT-OP-G Mobility & Gait Start: 02/19/25 13:49 Freq: Status: Active Protocol: Document 02/19/25 13:50 SAK (Rec: 02/19/25 15:45 SAK Laptop) OP Mobility Evaluation Bed Mobility Rolling indep Supine to and from indep Sit Transfers Bed to Chair indep but uncontrolled Transfers Car Transfers indep Wheelchair Management Type of Wheelchair manual OP Gait Assessment Comments Gait Comments unable to ambulate per recommendation infectious disease specialist PT-OP-J Posture/Palpation/Skin Start: 02/19/25 13:49 Freq: Status: Active Protocol: Document 02/19/25 13:50 SAK (Rec: 02/19/25 15:45 SAK Laptop) Palpation Assessment Location kota LE's Palpation Findings Edema Palpation Details no redness or excess warmth Skin Assessment Edema Assessment kota LE's Edema Type Non-Pitting Edema Appearance Discolored,Open Sores,Puffy Subjective Edema Tightness Description Comments hyperkeratosis, discoloration with hemosiderin staining and multiple varicosities, hyperplasia all kota LE's Multiple bruises kota LE's (pt. takes blood thinner) PT-OP-K Range of Motion Start: 02/19/25 13:49 Freq: Status: Active Protocol: Document 02/19/25 13:50 SAK (Rec: 02/19/25 15:45 SAK Laptop) Hip Goniometric Range of Motion Hip kota Hip ROM WFL Yes Knee Goniometric Range of Motion Knee kota Knee ROM WFL No Comments lacking full knee extension kota knees actively (lacking approx 10 deg left and 30 deg right), able to fully extend kota knees passively to WFL Ankle and Foot Goniometric Range of Motion Ankle and Foot kota Ankle/Foot ROM WFL No Ankle and Foot ROM Limitations Comments df to neutral passively, unable to actively df. pf 40 deg PT-OP-N Lymphedema Start: 02/19/25 13:49 Freq: Status: Active Protocol: Document 03/22/25 14:33 AB (Rec: 03/22/25 17:40 AB [id number]) Lymphedema Measurements Lower Extremity Circumference Measurements Right MT Heads 29.3 cm Mid-foot 31 cm Medial Malleolus 27.6 cm 10 cm From Medial 30.1 cm Malleolus 20 cm From Medial 40.3 cm Malleolus 30 cm From Medial 48.6 cm Malleolus 40 cm From Medial 59.2 cm Malleolus 50 cm From Medial 64.7 cm Malleolus 60 cm From Medial 70.2 cm Malleolus 70 cm From Medial 81.1 cm Malleolus Knee Joint 58.3 cm Left MT Heads 26.8 cm Mid-foot 31.3 cm Medial Malleolus 28.2 cm 10 cm From Medial 30 cm Malleolus 20 cm From Medial 41.8 cm Malleolus 30 cm From Medial 48.7 cm Malleolus 40 cm From Medial 55 cm Malleolus 50 cm From Medial 63.1 cm Malleolus 60 cm From Medial 72.2 cm Malleolus 70 cm From Medial 80.1 cm Malleolus Knee Joint 55.2 cm PT-OP-Q Treatments Start: 02/19/25 13:49 Freq: Status: Active Protocol: Document 03/22/25 14:33 AB (Rec: 03/22/25 17:40 AB [id number]) Lymphedema Treatment Manual Lymphatic Drainage Location for kota LE lymphedema, supine LE's elevated Comments drains, highways ant and bilateral LE's anteriorly Lymphedema Wrapping Body Location kota LE's Materials Cramer antibacterial/wicking material folded between toes , toe bandages, CobanLite system applied kota lower legs MTP to knees Sequential Lymphedema Exercises Location breathing from diaphragm, glutes, quad sets ankles PT-OP-R Modalities Start: 02/19/25 13:49 Freq: Status: Active Protocol: Document 03/22/25 14:33 AB (Rec: 03/22/25 17:40 AB [id number]) Compression Pump Treatment Treatment Location bilateral LE's Pressure Amount ( 45 mmHg) (mmHG) Treatment Comments L LE while manual performed on drains, ant highways and R LE and R LE on pump while L LE MLD performed and toe bandaging L LE. PT-OP-T Assessment and Plan Start: 02/19/25 13:49 Freq: Status: Active Protocol: Document 03/22/25 14:33 AB (Rec: 03/22/25 17:40 AB [id number]) Physical Therapy Assessment Goals Two Impairment lymphedema life impact scale 50% Short Term Goal (STG Decrease Lymphedema Life Impact Scale to no greater ) than 35% as measure of improved activity tolerance and quality of life. Skilled Nursing Goal (LTG) Decrease Lymphedema Life Impact Scale to no greater than 20% as measure of improved activity tolerance and quality of life. LTG Duration 05/22/25 One Impairment lymphedema kota LE's left toes to knee, right toes to mid thigh Short Term Goal (STG Patient will be instructed in all aspects of lymphedema ) self-care to include skin care, elevation, self- massage, self-bandaging/compression options, and lymphedema exercises. STG Duration 04/05/25 Skilled Nursing Goal (LTG) Decrease patient?s lymphedema to a stable level (no increase or decrease greater than 1 cm over the course of 1 week), patient to be independent with all aspects of self-care for lymphedema, and will obtain appropriate compression garment for lymphedema management in the home. LTG Duration 05/22/25 Assessment Summary Assessment L LE with 3 areas of decreased measures R LE 3 areas of decreased measures one the same others increased. Slight red streaks dorsal surface of foot, bilaterally at edge of where toe bandaging, no openings.
--- NOTE | 2025-03-25 17:41 | PT.OTN ---
Current Diagnoses Lymphedema, not elsewhere classified (03/25/25) Non-pressure chronic ulcer of other part of right foot limited to breakdown of skin (03/25/25) Non-pressure chronic ulcer of other part of left foot limited to breakdown of skin (03/25/25) Physical Therapy Treatment Note PT-OP-A Visit Information Start: 02/19/25 13:49 Freq: Status: Active Protocol: Document 03/25/25 14:31 SAK (Rec: 03/25/25 15:04 SAK Laptop) Out-Patient Physical Therapy Visit Information Visit Information Visit Type Treatment Note Visit Start Time 14:31 Visit Stop Time 16:00 Visit Number 6 Number of EXPERIMENTAL WORKER Visits 0 Evaluation Information Evaluation Date 02/19/25 Precautions Precautions fungal infection kota feet; WEAR GLOVES PT-OP-B Current Condition Start: 02/19/25 13:49 Freq: Status: Active Protocol: Document 03/25/25 14:31 SAK (Rec: 03/25/25 15:04 SAK Laptop) Current Condition History of Current Condition Onset Date 1 year Current Complaints lymphedema History of Current Got infection right foot, transferred to left foot. Condition Has been seeing wound care first [facility], then ER at [facility] in hospital 5 days due to infection first week of December. Did home health care. Has been seeing [place] wound care since then. Leg size back to normal, left foot back to normal. Still some weeping between left toes and first and second toe on right. Uses wheelchair due to right knee infection since last fall, had IV medications, inpatient rehab x 6 wks. Can't put weight on right LE , hasn't walked since May 2024. Was using a 4WW for gait prior to stopping walking. 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 Has pneumatic pump feet to knees from [employer], hasn't used except 1x due to bandages so thick he couldn't feel it. 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 Wearing cast shoes with velcro. 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 Prior Treatments and wound care currently [facility] Tests Personal Factors Other Personal W/C bound, sleeps in recliner Factors That May Effect Therapy/ Recovery PT-OP-C Subjective Start: 02/19/25 13:49 Freq: Status: Active Protocol: Document 03/25/25 14:31 SAK (Rec: 03/25/25 15:04 SAK Laptop) OP-PT Subjective Patient Comments Patient Comments Ran into door with electric W/c hitting left foot, blood all over kitchen floor. Initially thought he broke toes but ok. Still some redness at base of toes. PT-OP-G Mobility & Gait Start: 02/19/25 13:49 Freq: Status: Active Protocol: Document 02/19/25 13:50 SAK (Rec: 02/19/25 15:45 SAK Laptop) OP Mobility Evaluation Bed Mobility Rolling indep Supine to and from indep Sit Transfers Bed to Chair indep but uncontrolled Transfers Car Transfers indep Wheelchair Management Type of Wheelchair manual OP Gait Assessment Comments Gait Comments unable to ambulate per recommendation infectious disease specialist PT-OP-J Posture/Palpation/Skin Start: 02/19/25 13:49 Freq: Status: Active Protocol: Document 02/19/25 13:50 SAK (Rec: 02/19/25 15:45 SAK Laptop) Palpation Assessment Location kota LE's Palpation Findings Edema Palpation Details no redness or excess warmth Skin Assessment Edema Assessment kota LE's Edema Type Non-Pitting Edema Appearance Discolored,Open Sores,Puffy Subjective Edema Tightness Description Comments hyperkeratosis, discoloration with hemosiderin staining and multiple varicosities, hyperplasia all kota LE's Multiple bruises kota LE's (pt. takes blood thinner) PT-OP-K Range of Motion Start: 02/19/25 13:49 Freq: Status: Active Protocol: Document 02/19/25 13:50 SAK (Rec: 02/19/25 15:45 SAK Laptop) Hip Goniometric Range of Motion Hip kota Hip ROM WFL Yes Knee Goniometric Range of Motion Knee kota Knee ROM WFL No Comments lacking full knee extension kota knees actively (lacking approx 10 deg left and 30 deg right), able to fully extend kota knees passively to WFL Ankle and Foot Goniometric Range of Motion Ankle and Foot kota Ankle/Foot ROM WFL No Ankle and Foot ROM Limitations Comments df to neutral passively, unable to actively df. pf 40 deg PT-OP-N Lymphedema Start: 02/19/25 13:49 Freq: Status: Active Protocol: Document 03/25/25 14:31 SAK (Rec: 03/25/25 15:04 SAK Laptop) Lymphedema Measurements Lower Extremity Circumference Measurements Right MT Heads 29.5 cm Mid-foot 31.2 cm Medial Malleolus 28.4 cm 10 cm From Medial 30 cm Malleolus 20 cm From Medial 40.8 cm Malleolus 30 cm From Medial 52 cm Malleolus 40 cm From Medial 65 cm Malleolus 50 cm From Medial 66.7 cm Malleolus 60 cm From Medial 72.3 cm Malleolus 70 cm From Medial 82.6 cm Malleolus Knee Joint 65 cm Left MT Heads 29.2 cm Mid-foot 32.3 cm Medial Malleolus 26.5 cm 10 cm From Medial 31.3 cm Malleolus 20 cm From Medial 43.5 cm Malleolus 30 cm From Medial 49.9 cm Malleolus 40 cm From Medial 55.8 cm Malleolus 50 cm From Medial 67.2 cm Malleolus 60 cm From Medial 75 cm Malleolus 70 cm From Medial 82 cm Malleolus Knee Joint 55.8 cm PT-OP-Q Treatments Start: 02/19/25 13:49 Freq: Status: Active Protocol: Document 03/25/25 14:31 SAK (Rec: 03/25/25 15:04 [facility] Laptop) Lymphedema Treatment Manual Lymphatic Drainage Location for kota LE lymphedema, supine LE's elevated Comments drains, highways ant and bilateral LE's anteriorly Lymphedema Wrapping Body Location kota LE's Materials Cramer antibacterial/wicking material folded between toes , toe bandages, CobanLite system applied kota lower legs MTP to knees Sequential Lymphedema Exercises Location breathing from diaphragm, glutes, quad sets ankles, SLR PT-OP-R Modalities Start: 02/19/25 13:49 Freq: Status: Active Protocol: Document 03/25/25 14:31 SAK (Rec: 03/25/25 15:04 [facility] Laptop) Compression Pump Treatment Treatment Location bilateral LE's Pressure Amount ( 45 mmHg) (mmHG) Treatment Comments L LE while manual performed on drains, ant highways and R LE and R LE on pump while L LE MLD performed and toe bandaging L LE. PT-OP-T Assessment and Plan Start: 02/19/25 13:49 Freq: Status: Active Protocol: Document 03/25/25 14:31 SAK (Rec: 03/25/25 15:04 SAK Laptop) Physical Therapy Assessment Goals Two Impairment lymphedema life impact scale 50% Short Term Goal (STG Decrease Lymphedema Life Impact Scale to no greater ) than 35% as measure of improved activity tolerance and quality of life. STG Duration 04/05/25 Care Home Goal (LTG) Decrease Lymphedema Life Impact Scale to no greater than 20% as measure of improved activity tolerance and quality of life. LTG Duration 05/22/25 One Impairment lymphedema kota LE's left toes to knee, right toes to mid thigh Short Term Goal (STG Patient will be instructed in all aspects of lymphedema ) self-care to include skin care, elevation, self- massage, self-bandaging/compression options, and lymphedema exercises. STG Duration 04/05/25 Care Home Goal (LTG) Decrease patient?s lymphedema to a stable level (no increase or decrease greater than 1 cm over the course of 1 week), patient to be independent with all aspects of self-care for lymphedema, and will obtain appropriate compression garment for lymphedema management in the home. LTG Duration 05/22/25 Assessment Summary Assessment Most measurements increased today, redness base of toes still present no worsening per patient, no open areas , no increased warmth, will continue to monitor. Patient has been attending PT since 02/19/25 and is compliant to all aspects of lymphedema care including elevation, skin care, manual lymphatic drainage, lymphedema exercises, and compression. Despite this he has much difficulty with management of his lymphedema. He has hyperkeratosis, skin fibrosis, and hyperpigmentation of his lower legs and feet. His orthopedic issues cause him to be wheelchair bound. He lives by himself and has no assist in the home. I feel he would benefit highly from the use of a sequential pneumatic pump bilateral LE's to assist him in his self management of lymphedema. Patient is highly receptive Physical Therapy Plan Frequency and Duration Frequency of 20 visits Treatment Duration of 12 treatment (weeks) Plan of Care Start 02/19/25 Date Plan of Care End 05/22/25 Date Next Visit Focus/Plan Next Note Type Treatment Note Next Visit Plan Start treatment with recumbant elliptical. Continue CDT. Request sequential pneumatic pump.
--- NOTE | 2025-03-27 18:24 | PT.OTN ---
Current Diagnoses Lymphedema, not elsewhere classified (03/27/25) Non-pressure chronic ulcer of other part of right foot limited to breakdown of skin (03/27/25) Non-pressure chronic ulcer of other part of left foot limited to breakdown of skin (03/27/25) Physical Therapy Treatment Note PT OP: Lymphedema Lower Extremity Start: 03/27/25 10:27 Freq: Status: Active Protocol: Document 03/27/25 18:10 AB (Rec: 03/27/25 18:24 AB [id number]) Out-Patient Physical Therapy Visit Information Visit Information Visit Type Treatment Note Visit Start Time 14:33 Visit Stop Time 16:17 Visit Number 7 Number of FEEDER LOADER Visits 1 Progress Note Due 04/24/25 OP-PT Subjective Patient Comments Patient Comments Noted no areas of fine red lines R foot, L foot has light red area med >lat less lines more circular edge of bandaging. Patient reports Tuesday's appt with wound care canceled as they want the bandaging in place for the weekend. Cardio Equipment Recumbent Stepper (Sci-Fit) Duration (Minutes) 6 Resistance 3,1 Other Nu step Therapeutic Activity Therapeutic Activity pivot transfers Comments mat to and from WC, WC to and from recumbent elliptical then to and from Nu step. Verbal cues for increased trunk flexion UE position, LE position and Min assist to Nu step. Patient is initiating removing arm rest and locking brakes, but extend trunk excessively during transfers. Lymphedema Treatment Manual Lymphatic Drainage Location for kota LE lymphedema, supine LE's elevated Comments drains, highways ant and bilateral LE's anteriorly Lymphedema Wrapping Body Location kota LE's Materials Cramer antibacterial/wicking material folded between toes , toe bandages, CobanLite system applied kota lower legs MTP to knees Other toe bandaging closer to mid toenail rather than base of toes Sequential Lymphedema Exercises Location breathing from diaphragm, glutes, quad sets ankles, scap squeeze Compression Pump Treatment Treatment Location bilateral LE's Pressure Amount ( 50 mmHg) (mmHG) Treatment Comments L LE while manual performed on drains, ant highways and R LE and R LE on pump while L LE MLD performed and toe bandaging L LE. Physical Therapy Assessment Goals Two Impairment lymphedema life impact scale 50% Short Term Goal (STG Decrease Lymphedema Life Impact Scale to no greater ) than 35% as measure of improved activity tolerance and quality of life. STG Duration 04/05/25 Retirement Goal (LTG) Decrease Lymphedema Life Impact Scale to no greater than 20% as measure of improved activity tolerance and quality of life. LTG Duration 05/22/25 One Impairment lymphedema kota LE's left toes to knee, right toes to mid thigh Short Term Goal (STG Patient will be instructed in all aspects of lymphedema ) self-care to include skin care, elevation, self- massage, self-bandaging/compression options, and lymphedema exercises. STG Duration 04/05/25 Retirement Goal (LTG) Decrease patient?s lymphedema to a stable level (no increase or decrease greater than 1 cm over the course of 1 week), patient to be independent with all aspects of self-care for lymphedema, and will obtain appropriate compression garment for lymphedema management in the home. LTG Duration 05/22/25 Assessment Summary Assessment Patient into session with reports of Wound care appointment canceled so bandages would remain in place over weekend. Patient is initiating locking brakes and removing armrest for transfers, but only minimally reaches seat with minimal edge of one buttocks on first scoot pivot, also extend trunk during transfers increasing risk of falls. Physical Therapy Plan Frequency and Duration Frequency of 20 visits Treatment Duration of 12 treatment (weeks) Plan of Care Start 02/19/25 Date Plan of Care End 05/22/25 Date Next Visit Focus/Plan Next Visit Plan Start treatment with recumbant elliptical. Continue CDT. Request sequential pneumatic pump.
--- NOTE | 2025-04-01 16:27 | PT.OTN ---
Current Diagnoses Lymphedema, not elsewhere classified (04/01/25) Non-pressure chronic ulcer of other part of right foot limited to breakdown of skin (04/01/25) Non-pressure chronic ulcer of other part of left foot limited to breakdown of skin (04/01/25) Physical Therapy Treatment Note PT OP: Lymphedema Lower Extremity Start: 03/27/25 10:27 Freq: Status: Active Protocol: Document 04/01/25 14:24 SAK (Rec: 04/01/25 15:10 SAK Laptop) Out-Patient Physical Therapy Visit Information Visit Information Visit Type Treatment Note Visit Start Time 14:30 Visit Stop Time 16:15 Visit Number 78 Number of BEVERAGE SPECIALIST Visits 0 Progress Note Due 04/24/25 Current Condition History of Current Condition Onset Date 1 year Current Complaints lymphedema History of Current Got infection right foot, transferred to left foot. Condition Has been seeing wound care first [facility], then ER at [facility] in hospital 5 days due to infection first week of December. Did home health care. Has been seeing [place] wound care since then. Leg size back to normal, left foot back to normal. Still some weeping between left toes and first and second toe on right. Uses wheelchair due to right knee infection since last fall, had IV medications, inpatient rehab x 6 wks. Can't put weight on right LE , hasn't walked since May 2024. Was using a 4WW for gait prior to stopping walking. 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 Has pneumatic pump feet to knees from [facility], hasn't used except 1x due to bandages so thick he couldn't feel it. 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 Wearing cast shoes with velcro. 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 Prior Treatments and wound care currently [facility] Tests OP-PT Subjective Patient Comments Patient Comments States wounds are healed at this time. NOt scheduled with wound care for 2 weeks. sees them again 04/16/25. Thinks he would prefer compression stockings instead of velcro compression wraps, states he could have someone come over and help him with compression stockings Lymphedema Measurements Lower Extremity Circumference Measurements Right MT Heads 29.4 cm Mid-foot 30.5 cm Medial Malleolus 26.6 cm 10 cm From Medial 27.8 cm Malleolus 20 cm From Medial 38.7 cm Malleolus 30 cm From Medial 48.6 cm Malleolus 40 cm From Medial 53.3 cm Malleolus 50 cm From Medial 64.3 cm Malleolus 60 cm From Medial 69.3 cm Malleolus 70 cm From Medial 78.7 cm Malleolus Knee Joint 64.3 cm Left MT Heads 28.6 cm Mid-foot 31.3 cm Medial Malleolus 26.8 cm 10 cm From Medial 28.1 cm Malleolus 20 cm From Medial 39 cm Malleolus 30 cm From Medial 48.7 cm Malleolus 40 cm From Medial 51.1 cm Malleolus 50 cm From Medial 62.6 cm Malleolus 60 cm From Medial 73.7 cm Malleolus 70 cm From Medial 80.5 cm Malleolus Knee Joint 58 cm Cardio Equipment Recumbent Elliptical (NuStep) Duration (Minutes) 10 Resistance 5 Seat Position 15 Therapeutic Activity Therapeutic Activity pivot transfers Comments mat to and from WC, WC to and from recumbent elliptical then to and from Nu step. Verbal cues for increased trunk flexion UE position, LE position a to Nu step. Patient is initiating removing arm rest and locking brakes, but extend trunk excessively during transfers. Continued education for safe transfers Lymphedema Treatment Manual Lymphatic Drainage Location for kota LE lymphedema, supine LE's elevated Comments drains, highways ant and bilateral LE's anteriorly Lymphedema Wrapping Body Location kota LE's Materials Cramer antibacterial/wicking material folded between toes (by wound care), toe bandages, CobanLite system applied kota lower legs MTP to knees. Patient ordering a new knee brace for right knee, states has one that fits for left; found them over the weekend. The right one is too small Other toe bandaging closer to mid toenail rather than base of toes Sequential Lymphedema Exercises Location breathing from diaphragm, glutes, quad sets ankles, scap squeeze Patient Education Compression Garments options using [employer] videos Other pt. reports he has a donning aid for socks at home Other Other Cetaphil lotion applied kota LE's, initiating over distal foot and toes, not between toes. Compression Pump Treatment Treatment Location bilateral LE's Pressure Amount ( 50 mmHg) (mmHG) Treatment Comments L LE while manual performed on drains, ant highways and R LE and R LE on pump while L LE MLD performed and toe bandaging L LE. Physical Therapy Assessment Goals Two Impairment lymphedema life impact scale 50% Short Term Goal (STG Decrease Lymphedema Life Impact Scale to no greater ) than 35% as measure of improved activity tolerance and quality of life. STG Duration 04/05/25 Alf Goal (LTG) Decrease Lymphedema Life Impact Scale to no greater than 20% as measure of improved activity tolerance and quality of life. LTG Duration 05/22/25 One Impairment lymphedema kota LE's left toes to knee, right toes to mid thigh Short Term Goal (STG Patient will be instructed in all aspects of lymphedema ) self-care to include skin care, elevation, self- massage, self-bandaging/compression options, and lymphedema exercises. STG Duration 04/05/25 Shrimp Cleaner Goal (LTG) Decrease patient?s lymphedema to a stable level (no increase or decrease greater than 1 cm over the course of 1 week), patient to be independent with all aspects of self-care for lymphedema, and will obtain appropriate compression garment for lymphedema management in the home. LTG Duration 05/22/25 Assessment Summary Assessment Patient circumferential measurements all reduced. No wounds but wound care still wants silver wicking material between toes. Pt. reports wound care said lotion can be applied on the distal feet (over purple anti-fungal medicine) to soften the tissue. Physical Therapy Plan Frequency and Duration Frequency of 20 visits Treatment Duration of 12 treatment (weeks) Plan of Care Start 02/19/25 Date Plan of Care End 05/22/25 Date Next Visit Focus/Plan Next Note Type Treatment Note Next Visit Plan Start treatment with recumbant elliptical. Continue CDT. Request sequential pneumatic pump.
--- NOTE | 2025-04-03 16:19 | PT.OTN ---
Current Diagnoses Lymphedema, not elsewhere classified (04/03/25) Non-pressure chronic ulcer of other part of right foot limited to breakdown of skin (04/03/25) Non-pressure chronic ulcer of other part of left foot limited to breakdown of skin (04/03/25) Physical Therapy Treatment Note PT OP: Lymphedema Lower Extremity Start: 03/27/25 10:27 Freq: Status: Active Protocol: Document 04/03/25 13:02 AB (Rec: 04/03/25 13:08 AB [id number]) Out-Patient Physical Therapy Visit Information Visit Information Visit Type Treatment Note Visit Start Time 13:02 Visit Stop Time 14:35 Visit Number 9 Number of NURSE RECRUITER Visits 1 Progress Note Due 04/24/25 OP-PT Subjective Patient Comments Patient Comments Patient reports he has no more wounds sees wound care April 16. Patient into session with bandages in place. Therapeutic Activity Therapeutic Activity donning nylons over Coban lite Comments Patient able to betsy nylons, requested assist for L LE but with verbal cues to get end of nylon over toes first and give it a second trial, patient able to betsy L LE without physical assist. pivot transfers Comments Verbal cues for fwd trunk during transfer to and from [facility] Lymphedema Treatment Manual Lymphatic Drainage Location for kota LE lymphedema, supine LE's elevated Comments drains, highways ant and bilateral LE's anteriorly Lymphedema Wrapping Materials Cramer antibacterial/wicking limited L LE between 3rd and 4th toes and between 4th and 5th toes, all toes with wicking R LE, toe bandages, Coban Lite system applied kota lower legs MTP to knees. Other toe bandaging closer to mid toenail rather than base of toes Sequential Lymphedema Exercises Location breathing from diaphragm, glutes, heel slide quad sets ankles, scap squeeze Compression Pump Treatment Treatment Location bilateral LE's Pressure Amount ( 50 mmHg) (mmHG) Treatment Comments L LE while manual performed on drains, ant highways and R LE and R LE on pump while L LE MLD performed and toe bandaging L LE. Physical Therapy Assessment Goals Two Impairment lymphedema life impact scale 50% Short Term Goal (STG Decrease Lymphedema Life Impact Scale to no greater ) than 35% as measure of improved activity tolerance and quality of life. STG Duration 04/05/25 Halfway Goal (LTG) Decrease Lymphedema Life Impact Scale to no greater than 20% as measure of improved activity tolerance and quality of life. LTG Duration 05/22/25 One Impairment lymphedema kota LE's left toes to knee, right toes to mid thigh Short Term Goal (STG Patient will be instructed in all aspects of lymphedema ) self-care to include skin care, elevation, self- massage, self-bandaging/compression options, and lymphedema exercises. STG Duration 04/05/25 Halfway Goal (LTG) Decrease patient?s lymphedema to a stable level (no increase or decrease greater than 1 cm over the course of 1 week), patient to be independent with all aspects of self-care for lymphedema, and will obtain appropriate compression garment for lymphedema management in the home. LTG Duration 05/22/25 Assessment Summary Assessment Silver wicking limited due to limited product, all toes R LE with silver wicking R LE between 3rd and 4th and 4th and 5th. Patient reports he is performing exercises at home. Also comments the breathing from diaphragm is lowering his BP. Physical Therapy Plan Frequency and Duration Frequency of 20 visits Treatment Duration of 12 treatment (weeks) Plan of Care Start 02/19/25 Date Plan of Care End 05/22/25 Date Next Visit Focus/Plan Next Note Type Treatment Note Next Visit Plan Start treatment with recumbant elliptical. Continue CDT. Request sequential pneumatic pump.
--- NOTE | 2025-04-08 16:31 | PT.OTN ---
Current Diagnoses Lymphedema, not elsewhere classified (04/08/25) Non-pressure chronic ulcer of other part of right foot limited to breakdown of skin (04/08/25) Non-pressure chronic ulcer of other part of left foot limited to breakdown of skin (04/08/25) Physical Therapy Treatment Note PT OP: Lymphedema Lower Extremity Start: 03/27/25 10:27 Freq: Status: Active Protocol: Document 04/08/25 12:54 SAK (Rec: 04/08/25 12:58 SAK Laptop) Out-Patient Physical Therapy Visit Information Visit Information Visit Type Progress Note Visit Start Time 13:00 Visit Stop Time 14:25 Visit Number 10 Number of KALSOMINER Visits 1 Progress Note Due 04/24/25 Precautions Precautions fungal infection kota feet; WEAR GLOVES OP-PT Subjective Patient Comments Patient Comments Pt. brings toe bandages that he ordered into PT. Has been doing HEP. REports he was able to put on thin nylon socks on his own last week. Still thinking compression stockings will be what he wants for compression when he is done with PT. Lymphedema Measurements Lower Extremity Circumference Measurements Right MT Heads 29 cm Mid-foot 30 cm Medial Malleolus 26.6 cm 10 cm From Medial 25.8 cm Malleolus 20 cm From Medial 35.6 cm Malleolus 30 cm From Medial 49.3 cm Malleolus 40 cm From Medial 54.2 cm Malleolus 50 cm From Medial 63.8 cm Malleolus 60 cm From Medial 68.2 cm Malleolus 70 cm From Medial 76.4 cm Malleolus Knee Joint 63.8 cm Left MT Heads 29.2 cm Mid-foot 29.9 cm Medial Malleolus 26.7 cm 10 cm From Medial 26.4 cm Malleolus 20 cm From Medial 35.4 cm Malleolus 30 cm From Medial 46 cm Malleolus 40 cm From Medial 50.1 cm Malleolus 50 cm From Medial 58.2 cm Malleolus 60 cm From Medial 71.6 cm Malleolus 70 cm From Medial 77.5 cm Malleolus Knee Joint 57.8 cm Cardio Equipment Recumbent Elliptical (NuStep) Duration (Minutes) 10 Resistance 5 Seat Position 15 Lymphedema Treatment Manual Lymphatic Drainage Location for kota LE lymphedema, supine LE's elevated Comments drains, highways ant and bilateral LE's anteriorly Lymphedema Wrapping Materials Cramer antibacterial/wicking limited L LE between 3rd and 4th toes and between 4th and 5th toes, all toes with wicking R LE, toe bandages, Coban Lite system applied kota lower legs MTP to knees. Other toe bandaging closer to mid toenail rather than base of toes Sequential Lymphedema Exercises Location breathing from diaphragm, glutes, heel slide quad sets ankles, scap squeeze Other Other Cetaphil lotion applied kota LE's, initiating over distal foot and toes, not between toes. Physical Therapy Assessment Goals Two Impairment lymphedema life impact scale 50% Short Term Goal (STG Decrease Lymphedema Life Impact Scale to no greater ) than 35% as measure of improved activity tolerance and quality of life. STG Duration 04/05/25 Jail Goal (LTG) Decrease Lymphedema Life Impact Scale to no greater than 20% as measure of improved activity tolerance and quality of life. LTG Duration 05/22/25 One Impairment lymphedema kota LE's left toes to knee, right toes to mid thigh Short Term Goal (STG Patient will be instructed in all aspects of lymphedema ) self-care to include skin care, elevation, self- massage, self-bandaging/compression options, and lymphedema exercises. STG Duration 04/05/25 Jail Goal (LTG) Decrease patient?s lymphedema to a stable level (no increase or decrease greater than 1 cm over the course of 1 week), patient to be independent with all aspects of self-care for lymphedema, and will obtain appropriate compression garment for lymphedema management in the home. LTG Duration 05/22/25 Assessment Summary Assessment most circumferential measurements decreased today. Patient reporting compliance to HEP, practicing putting Coban Lite black socks on, able to independently. Patient reports having rigid donning aid to assist with compression stockings. Further education today about likely need for custom compression garments and options for locations to get measured and fit. Feel patient foot and ankle weakness will be a limiting factor in donning compression stockings. Physical Therapy Plan Frequency and Duration Frequency of 20 visits Treatment Duration of 12 treatment (weeks) Plan of Care Start 02/19/25 Date Plan of Care End 05/22/25 Date Next Visit Focus/Plan Next Note Type Treatment Note Next Visit Plan Continue CDT. Start session with recumbant elliptical. Further discussion compression garments, consider practicing method, using online video and sample sock to load dhaval, though currently don't have trial compression stocking for trial that would fit patient.
--- NOTE | 2025-04-10 12:42 | PT.OTN ---
Current Diagnoses Lymphedema, not elsewhere classified (04/10/25) Non-pressure chronic ulcer of other part of right foot limited to breakdown of skin (04/10/25) Non-pressure chronic ulcer of other part of left foot limited to breakdown of skin (04/10/25) Physical Therapy Treatment Note PT OP: Lymphedema Lower Extremity Start: 03/27/25 10:27 Freq: Status: Active Protocol: Document 04/10/25 10:46 AB (Rec: 04/10/25 12:41 AB [id number]) Out-Patient Physical Therapy Visit Information Visit Information Visit Type Treatment Note Visit Start Time 10:46 Visit Stop Time 12:31 Visit Number 11 Number of CONGRESSIONAL AIDE Visits 11 Progress Note Due 04/24/25 Precautions Precautions fungal infection kota feet; WEAR GLOVES OP-PT Subjective Patient Comments Patient Comments Patient into session with reports feet are smaller as seen by excess strap when donning cast shoes. Cardio Equipment Recumbent Stepper (Sci-Fit) Duration (Minutes) 5 Resistance 3 Other Nu step Lymphedema Treatment Manual Lymphatic Drainage Location for kota LE lymphedema, supine LE's elevated Comments drains, highways ant and bilateral LE's anteriorly Lymphedema Wrapping Body Location kota LE's Materials Cramer antibacterial/wicking limited L LE between 3rd and 4th toes and between 4th and 5th toes, all toes with wicking R LE, toe bandages, Coban Lite system applied kota lower legs MTP to knees. Other toe bandaging closer to mid toenail rather than base of toes Sequential Lymphedema Exercises Location breathing from diaphragm, glutes, heel slide quad sets ankles, scap squeeze Compression Garment Assessment Compression Garment Videos for donning with donning aid for socks X 2 this Assessment Details session Physical Therapy Assessment Goals Two Impairment lymphedema life impact scale 50% Short Term Goal (STG Decrease Lymphedema Life Impact Scale to no greater ) than 35% as measure of improved activity tolerance and quality of life. STG Duration 04/05/25 Snf Goal (LTG) Decrease Lymphedema Life Impact Scale to no greater than 20% as measure of improved activity tolerance and quality of life. LTG Duration 05/22/25 One Impairment lymphedema kota LE's left toes to knee, right toes to mid thigh Short Term Goal (STG Patient will be instructed in all aspects of lymphedema ) self-care to include skin care, elevation, self- massage, self-bandaging/compression options, and lymphedema exercises. STG Duration 04/05/25 Information Support Project Manager Goal (LTG) Decrease patient?s lymphedema to a stable level (no increase or decrease greater than 1 cm over the course of 1 week), patient to be independent with all aspects of self-care for lymphedema, and will obtain appropriate compression garment for lymphedema management in the home. LTG Duration 05/22/25 Assessment Summary Assessment Patient into session with reports of feet smaller due to excess strap when donning cast shoes. Handout again given for places to sched appointment for measuring for compression garmets. Physical Therapy Plan Frequency and Duration Frequency of 20 visits Treatment Duration of 12 treatment (weeks) Plan of Care Start 02/19/25 Date Plan of Care End 05/22/25 Date Next Visit Focus/Plan Next Note Type Treatment Note Next Visit Plan Continue CDT. Start session with recumbant elliptical. Further discussion compression garments, consider practicing method, using online video and sample sock to load dhaval, though currently don't have trial compression stocking for trial that would fit patient.
--- NOTE | 2025-04-15 16:30 | PT.OTN ---
Current Diagnoses Lymphedema, not elsewhere classified (04/15/25) Non-pressure chronic ulcer of other part of right foot limited to breakdown of skin (04/15/25) Non-pressure chronic ulcer of other part of left foot limited to breakdown of skin (04/15/25) Physical Therapy Treatment Note PT OP: Lymphedema Lower Extremity Start: 03/27/25 10:27 Freq: Status: Active Protocol: Document 04/15/25 13:06 FAWAD (Rec: 04/15/25 13:47 FAWAD Laptop) Out-Patient Physical Therapy Visit Information Visit Information Visit Type Treatment Note Visit Start Time 13:00 Visit Stop Time 14:30 Visit Number 12 Progress Note Due 04/24/25 Precautions Precautions fungal infection kota feet; WEAR GLOVES OP-PT Subjective Patient Comments Patient Comments 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 Wants to go to [facility] as he has dealt with them before for AFO's. Found donning aid at home, hasn't practiced with it yet. Spent more time sitting over the weekend, including in the heat yesterday at a social event, thinks may be more swollen . Lymphedema Measurements Lower Extremity Circumference Measurements Right MT Heads 28.8 cm Mid-foot 30.4 cm Medial Malleolus 27.6 cm 10 cm From Medial 26.5 cm Malleolus 20 cm From Medial 36.1 cm Malleolus 30 cm From Medial 47.3 cm Malleolus 40 cm From Medial 54.8 cm Malleolus 50 cm From Medial 64.3 cm Malleolus 60 cm From Medial 67.5 cm Malleolus 70 cm From Medial 76.4 cm Malleolus Knee Joint 64.3 cm Left MT Heads 29.7 cm Mid-foot 29.2 cm Medial Malleolus 26.6 cm 10 cm From Medial 26.8 cm Malleolus 20 cm From Medial 36.7 cm Malleolus 30 cm From Medial 50.4 cm Malleolus 40 cm From Medial 50.2 cm Malleolus 50 cm From Medial 60.4 cm Malleolus 60 cm From Medial 70.5 cm Malleolus 70 cm From Medial 79 cm Malleolus Knee Joint 58.4 cm Self-Care/Home Management Treatment Education Other Education demonstration use of garment dhaval with patient return demo with size K tubigrip. Issued size G Tubigrip for practice at home. Lymphedema Treatment Manual Lymphatic Drainage Location for kota LE lymphedema, supine LE's elevated Comments drains, highways ant and bilateral LE's anteriorly Lymphedema Wrapping Body Location kota LE's Materials Cramer antibacterial/wicking limited L LE between 3rd and 4th toes and between 4th and 5th toes, all toes with wicking R LE, toe bandages, Coban Lite system applied kota lower legs MTP to knees. Other toe bandaging closer to mid toenail rather than base of toenail Sequential Lymphedema Exercises Location breathing from diaphragm, glutes, heel slide quad sets ankles, scap squeeze Compression Garment Assessment Compression Garment Patient to make appointment with [facility] Assessment Details and Orthotics Physical Therapy Assessment Goals Two Impairment lymphedema life impact scale 50% Short Term Goal (STG Decrease Lymphedema Life Impact Scale to no greater ) than 35% as measure of improved activity tolerance and quality of life. 04/15/25: goal progress 40% STG Duration 04/05/25 Honing Machine Operator Production Goal (LTG) Decrease Lymphedema Life Impact Scale to no greater than 20% as measure of improved activity tolerance and quality of life. LTG Duration 05/22/25 One Impairment lymphedema kota LE's left toes to knee, right toes to mid thigh Short Term Goal (STG Patient will be instructed in all aspects of lymphedema ) self-care to include skin care, elevation, self- massage, self-bandaging/compression options, and lymphedema exercises. 04/15/25: goal met STG Duration goal met Long-Term Goal (LTG) Decrease patient?s lymphedema to a stable level (no increase or decrease greater than 1 cm over the course of 1 week), patient to be independent with all aspects of self-care for lymphedema, and will obtain appropriate compression garment for lymphedema management in the home. LTG Duration 05/22/25 Assessment Summary Assessment Most circumferential measurements larger today, likely due to increased time sitting and spending time in heat as well over the weekend. Patient demonstrates good understanding use of donning aid but needs much practice. Issued size G Tubigrip to practice or find sock to trial at home; difficult due to lack of active foot movement as well as obesity with difficulty reaching feet. Physical Therapy Plan Frequency and Duration Frequency of 20 visits Treatment Duration of 12 treatment (weeks) Plan of Care Start 02/19/25 Date Plan of Care End 05/22/25 Date Next Visit Focus/Plan Next Note Type Treatment Note Next Visit Plan Discuss outcome of patient last appointment with wound care. Start session with recumbant elliptical. Further practice with donning aid using Size G Tubigrip as needed. Continue CDT.
--- NOTE | 2025-04-17 18:11 | PT.OTN ---
Current Diagnoses Lymphedema, not elsewhere classified (04/17/25) Non-pressure chronic ulcer of other part of right foot limited to breakdown of skin (04/17/25) Non-pressure chronic ulcer of other part of left foot limited to breakdown of skin (04/17/25) Physical Therapy Treatment Note PT OP: Lymphedema Lower Extremity Start: 03/27/25 10:27 Freq: Status: Active Protocol: Document 04/17/25 12:59 AB (Rec: 04/17/25 13:14 AB [id number]) Out-Patient Physical Therapy Visit Information Visit Information Visit Type Treatment Note Visit Start Time 13:00 Visit Stop Time 14:38 Visit Number 13 Number of INSPECTOR BALANCE BRIDGE Visits 1 Progress Note Due 04/24/25 Precautions Precautions fungal infection kota feet; WEAR GLOVES OP-PT Subjective Patient Comments Patient Comments Patient reports when wrap was removed at wound care there was an open area on 2nd toe and has to go back to wound care Tuesday04/23/2025. Patient reports he has no appointments Cardio Equipment Recumbent Elliptical (NuStep) Duration (Minutes) 6 Resistance 3 Other Increased assist to set up patient on unit unable to place feet Recumbent Stepper (Sci-Fit) Duration (Minutes) 6 Resistance 3 Other Nu step Manual Therapy Treatment Consent Patient gave verbal Yes consent for manual treatment Lymphedema Treatment Manual Lymphatic Drainage Location for kota LE lymphedema, supine LE's elevated Comments drains, highways ant and bilateral LE's anteriorly Lymphedema Wrapping Body Location kota LE's Materials Cramer antibacterial/wicking limited L LE between 3rd and 4th toes and between 4th and 5th toes, all toes with wicking R LE, toe bandages, Coban Lite system applied kota lower legs MTP to knees. Other toe bandaging closer to mid toenail rather than base of toenail Sequential Lymphedema Exercises Location breathing from diaphragm, glutes, heel slide quad sets ankles, scap squeeze Compression Garment Assessment Compression Garment Patient to make appointment with [facility] Assessment Details and Orthotics Compression Pump Treatment Treatment Location bilateral LE's Pressure Amount ( 45 mmHg) (mmHG) Treatment Comments R LE Physical Therapy Assessment Goals Two Impairment lymphedema life impact scale 50% Short Term Goal (STG Decrease Lymphedema Life Impact Scale to no greater ) than 35% as measure of improved activity tolerance and quality of life. 04/15/25: goal progress 40% STG Duration 04/05/25 Cma Or Lpn Goal (LTG) Decrease Lymphedema Life Impact Scale to no greater than 20% as measure of improved activity tolerance and quality of life. LTG Duration 05/22/25 One Impairment lymphedema kota LE's left toes to knee, right toes to mid thigh Short Term Goal (STG Patient will be instructed in all aspects of lymphedema ) self-care to include skin care, elevation, self- massage, self-bandaging/compression options, and lymphedema exercises. 04/15/25: goal met STG Duration goal met [facility] Goal (LTG) Decrease patient?s lymphedema to a stable level (no increase or decrease greater than 1 cm over the course of 1 week), patient to be independent with all aspects of self-care for lymphedema, and will obtain appropriate compression garment for lymphedema management in the home. LTG Duration 05/22/25 Assessment Summary Assessment Noted small area of dried blood R 2nd toe on Cramer antibacterial/wicking. Patient reports he had been doing his exercises at home. Physical Therapy Plan Frequency and Duration Frequency of 20 visits Treatment Duration of 12 treatment (weeks) Plan of Care Start 02/19/25 Date Plan of Care End 05/22/25 Date Therapeutic Interventions Therapeutic Home Exercise Program,Lymphedema Management,Manual Interventions Therapy,Patient/Caregiver Education,Self-Care/Home Management,Soft Tissue Mobilization,Taping,Therapeutic Activities,Therapeutic Exercises Modalities Vasopneumatic Devices Next Visit Focus/Plan Next Note Type Treatment Note Next Visit Plan Discuss outcome of patient last appointment with wound care. Start session with recumbant elliptical. Further practice with donning aid using Size G Tubigrip as needed. Continue CDT.
--- NOTE | 2025-04-29 16:43 | PT.OTN ---
Current Diagnoses Lymphedema, not elsewhere classified (04/29/25) Non-pressure chronic ulcer of other part of right foot limited to breakdown of skin (04/29/25) Non-pressure chronic ulcer of other part of left foot limited to breakdown of skin (04/29/25) Physical Therapy Treatment Note PT OP: Lymphedema Lower Extremity Start: 03/27/25 10:27 Freq: Status: Active Protocol: Document 04/29/25 13:00 SAK (Rec: 04/29/25 14:04 SAK Laptop) Out-Patient Physical Therapy Visit Information Visit Information Visit Type Treatment Note Visit Start Time 13:00 Visit Stop Time 14:38 Visit Number [id number] Number of WEB CONTENT PRODUCER Visits 0 Progress Note Due 04/24/25 Precautions Precautions fungal infection kota feet; WEAR GLOVES OP-PT Subjective Patient Comments Patient Comments Patient reports still has wound on right toe, saw wound care this am. Excited to get compression pump for home use today. ; frustrated by his limited mobility and hopeful the pump will help further with his edema. Lymphedema Measurements Lower Extremity Circumference Measurements Right - measurements taken today but lost due to insurance glitch Left - measurements taken today but lost due to insurance glitch Cardio Equipment Recumbent Elliptical (NuStep) Duration (Minutes) 10 Resistance 3 Other Increased assist to set up patient on unit unable to place feet Lymphedema Treatment Manual Lymphatic Drainage Location for kota LE lymphedema, supine LE's elevated Comments drains, highways ant and bilateral LE's anteriorly Lymphedema Wrapping Body Location kota LE's Materials Cramer antibacterial/wicking limited L LE between 3rd and 4th toes and between 4th and 5th toes, all toes with wicking R LE, toe bandages, Coban Lite system applied kota lower legs MTP to knees. Other toe bandaging closer to mid toenail rather than base of toenail Sequential Lymphedema Exercises Location breathing from diaphragm, glutes, heel slide quad sets ankles, scap squeeze Compression Garment Assessment Compression Garment Further information sent to [facility] and Assessment Details Orthotics including requested referral from Dr. Aquino Physical Therapy Assessment Goals Two Impairment lymphedema life impact scale 50% Short Term Goal (STG Decrease Lymphedema Life Impact Scale to no greater ) than 35% as measure of improved activity tolerance and quality of life. 04/15/25: goal progress 40% STG Duration 04/05/25 Penitentiary Goal (LTG) Decrease Lymphedema Life Impact Scale to no greater than 20% as measure of improved activity tolerance and quality of life. LTG Duration 05/22/25 One Impairment lymphedema kota LE's left toes to knee, right toes to mid thigh Short Term Goal (STG Patient will be instructed in all aspects of lymphedema ) self-care to include skin care, elevation, self- massage, self-bandaging/compression options, and lymphedema exercises. 04/15/25: goal met STG Duration goal met Prepper Goal (LTG) Decrease patient?s lymphedema to a stable level (no increase or decrease greater than 1 cm over the course of 1 week), patient to be independent with all aspects of self-care for lymphedema, and will obtain appropriate compression garment for lymphedema management in the home. LTG Duration 05/22/25 Assessment Summary Assessment measurements lost due to computer glitch; left LE stable, right increased 1-2 cm thorughout. Patient instructed in set up and use of [employer] sequential pneumatic pump for home use and demonstrated good understanding. Pump issued to patient. Physical Therapy Plan Frequency and Duration Frequency of 20 visits Treatment Duration of 12 treatment (weeks) Plan of Care Start 02/19/25 Date Plan of Care End 05/22/25 Date Therapeutic Interventions Therapeutic Home Exercise Program,Lymphedema Management,Manual Interventions Therapy,Patient/Caregiver Education,Self-Care/Home Management,Soft Tissue Mobilization,Taping,Therapeutic Activities,Therapeutic Exercises Modalities Vasopneumatic Devices Next Visit Focus/Plan Next Note Type Treatment Note Next Visit Plan Start session with recumbant elliptical. Further practice with donning aid using Size G Tubigrip as needed. Continue CDT. Disuss use of sequential pneumatic pump at home.
--- NOTE | 2025-05-02 12:16 | PT.OTN ---
Current Diagnoses Lymphedema, not elsewhere classified (05/02/25) Non-pressure chronic ulcer of other part of right foot limited to breakdown of skin (05/02/25) Non-pressure chronic ulcer of other part of left foot limited to breakdown of skin (05/02/25) Physical Therapy Treatment Note PT OP: Lymphedema Lower Extremity Start: 03/27/25 10:27 Freq: Status: Active Protocol: Document 05/02/25 10:52 SAK (Rec: 05/02/25 11:07 SAK Laptop) Out-Patient Physical Therapy Visit Information Visit Information Visit Type Treatment Note Visit Start Time 10:47 Visit Stop Time 12:15 Visit Number 15 Number of PROJECT ENGINEER Visits 0 Progress Note Due 04/24/25 Precautions Precautions fungal infection kota feet; WEAR GLOVES OP-PT Subjective Patient Comments Patient Comments Used pump at home, still working on set-up for most efficient use Lymphedema Measurements Lower Extremity Circumference Measurements Left MT Heads 27.3 cm Mid-foot 29.3 cm Medial Malleolus 26.2 cm 10 cm From Medial 26.2 cm Malleolus 20 cm From Medial 35.5 cm Malleolus 30 cm From Medial 45.5 cm Malleolus 40 cm From Medial 50.4 cm Malleolus 50 cm From Medial 58.7 cm Malleolus 60 cm From Medial 72.3 cm Malleolus Knee Joint 57.5 cm - measurements taken today but lost due to insurance glitch Cardio Equipment Recumbent Elliptical (NuStep) Duration (Minutes) 12 Resistance 3 Other Increased assist to set up patient on unit unable to place feet Therapeutic Exercises Sitting Exercises trunk rotation Reps/Minutes 10x lean backs Reps/Minutes 10x Manual Therapy Treatment Consent Patient gave verbal Yes consent for manual treatment Lymphedema Treatment Manual Lymphatic Drainage Location for kota LE lymphedema, supine LE's elevated Comments drains, highways ant and bilateral LE's anteriorly Lymphedema Wrapping Body Location kota LE's Materials Cramer antibacterial/wicking limited L LE between 3rd and 4th toes and between 4th and 5th toes, all toes with wicking R LE, toe bandages, Coban Lite system applied kota lower legs MTP to knees. Other toe bandaging closer to mid toenail rather than base of toenail Sequential Lymphedema Exercises Location breathing from diaphragm, glutes, heel slide quad sets ankles, scap squeeze Physical Therapy Assessment Goals Two Impairment lymphedema life impact scale 50% Short Term Goal (STG Decrease Lymphedema Life Impact Scale to no greater ) than 35% as measure of improved activity tolerance and quality of life. 04/15/25: goal progress 40% STG Duration 04/05/25 Mcfp Goal (LTG) Decrease Lymphedema Life Impact Scale to no greater than 20% as measure of improved activity tolerance and quality of life. LTG Duration 05/22/25 One Impairment lymphedema kota LE's left toes to knee, right toes to mid thigh Short Term Goal (STG Patient will be instructed in all aspects of lymphedema ) self-care to include skin care, elevation, self- massage, self-bandaging/compression options, and lymphedema exercises. 04/15/25: goal met STG Duration goal met Mcfp Goal (LTG) Decrease patient?s lymphedema to a stable level (no increase or decrease greater than 1 cm over the course of 1 week), patient to be independent with all aspects of self-care for lymphedema, and will obtain appropriate compression garment for lymphedema management in the home. LTG Duration 05/22/25 Assessment Summary Assessment Decrease in most circumferential measurements. Hyperkeratosis persists kota toes, most difficult to get reduction. Patient continues with wound care 1x/wk. Increase in Nu-Step 2 min today and added seated trunk leans and trunk rotation with good venecia. Physical Therapy Plan Frequency and Duration Frequency of 20 visits Treatment Duration of 12 treatment (weeks) Plan of Care Start 02/19/25 Date Plan of Care End 05/22/25 Date Therapeutic Interventions Therapeutic Home Exercise Program,Lymphedema Management,Manual Interventions Therapy,Patient/Caregiver Education,Self-Care/Home Management,Soft Tissue Mobilization,Taping,Therapeutic Activities,Therapeutic Exercises Modalities Vasopneumatic Devices Next Visit Focus/Plan Next Note Type Treatment Note Next Visit Plan Start session with recumbant elliptical. Further practice with donning aid using Size G Tubigrip as needed. Continue CDT. Disuss use of sequential pneumatic pump at home.
--- NOTE | 2025-05-21 14:54 | PT.OPPOC ---
Physical, Occupational & Speech Therapy At [facility] Current Diagnoses Lymphedema, not elsewhere classified (05/21/25) Non-pressure chronic ulcer of other part of right foot limited to breakdown of skin (05/21/25) Non-pressure chronic ulcer of other part of left foot limited to breakdown of skin (05/21/25) Visit Care Team Role Provider Type Tom Morales MD Primary Care Provider Non-Staff Specialty: Internal Medicine Address: [address] [place], [address] Email: Nba Aquino MD Attending Provider Physician Referring Provider Specialty: Wound Care Address: [address] [place] [address], [id number] Email: [email or web address] Plan Of Care PT OP: Lymphedema Lower Extremity Start: 03/27/25 10:27 Freq: Status: Active Protocol: Document 05/21/25 08:09 SAK (Rec: 05/21/25 08:58 SAK Laptop) Out-Patient Physical Therapy Visit Information Visit Information Visit Type Treatment Note Visit Start Time 08:15 Visit Stop Time 09:44 Visit Number 16 Number of PCAT INSTRUCTOR Visits 0 Precautions Precautions fungal infection kota feet; WEAR GLOVES OP-PT Subjective Patient Comments Patient Comments Seeing wound care now every Tuesday, has some weeping right foot. Had appt with [facility] a couple weeks ago, now follow-up appt with them today. States he may be getting brace for his right foot as well per orthodontic technician assistant recommendation. Using pumps daily, feels helpful for feet and lower legs, not sure about right knee. Lymphedema Measurements Lower Extremity Circumference Measurements Right MT Heads 28.3 cm Mid-foot 29.9 cm Medial Malleolus 26.7 cm 10 cm From Medial 26.6 cm Malleolus 20 cm From Medial 35 cm Malleolus 30 cm From Medial 45 cm Malleolus 40 cm From Medial 51.5 cm Malleolus 50 cm From Medial 60.5 cm Malleolus 60 cm From Medial 65.2 cm Malleolus Knee Joint 60.5 cm Left MT Heads 27 cm Mid-foot 29.3 cm Medial Malleolus 25.6 cm 10 cm From Medial 25.8 cm Malleolus 20 cm From Medial 35.7 cm Malleolus 30 cm From Medial 45.3 cm Malleolus 40 cm From Medial 49.2 cm Malleolus 50 cm From Medial 58.2 cm Malleolus 60 cm From Medial 67.4 cm Malleolus Knee Joint 54.3 cm - measurements taken today but lost due to insurance glitch Cardio Equipment Recumbent Elliptical (NuStep) Duration (Minutes) 12 Resistance 3 Other last 3 min no UE's Lymphedema Treatment Manual Lymphatic Drainage Location for kota LE lymphedema, supine LE's elevated Comments drains, highways ant and bilateral LE's anteriorly Lymphedema Wrapping Body Location kota LE's Materials Cramer antibacterial/wicking material and padding between all toes, toe bandages, Coban Lite system applied kota lower legs MTP to knees. Other toe bandaging closer to mid toenail rather than base of toenail Sequential Lymphedema Exercises Location breathing from diaphragm, glutes, heel slide quad sets ankles, scap squeeze Physical Therapy Assessment Goals Two Impairment lymphedema life impact scale 50% Short Term Goal (STG Decrease Lymphedema Life Impact Scale to no greater ) than 35% as measure of improved activity tolerance and quality of life. 04/15/25: goal progress 40% 05/21/25:Goal progress 18% STG Duration goal met Alf Goal (LTG) Decrease Lymphedema Life Impact Scale to no greater than 20% as measure of improved activity tolerance and quality of life. 05/21/25: goal met LTG Duration goal met One Impairment lymphedema kota LE's left toes to knee, right toes to mid thigh Short Term Goal (STG Patient will be instructed in all aspects of lymphedema ) self-care to include skin care, elevation, self- massage, self-bandaging/compression options, and lymphedema exercises. 04/15/25: goal met STG Duration goal met Alf Goal (LTG) Decrease patient?s lymphedema to a stable level (no increase or decrease greater than 1 cm over the course of 1 week), patient to be independent with all aspects of self-care for lymphedema, and will obtain appropriate compression garment for lymphedema management in the home. 05/21/25: not fully met; circumferential measurements improved especially now with use of pump daily at home, but wounds have reopened on toes right foot and circumferenctial measurements minimally changed right toes. Is currently consulting with [facility] regarding both compression garments and potentially an ankle brace. LTG Duration 05/22/25 Progress Towards Goals Progress Towards Progressing Toward Goals Goals Assessment Summary Assessment Decrease in most circumferential measurements including at knees, good progress. Patient has had a ppointment with [facility] for fitting tomorrow, will need to assess fit. Toes with minimal change in size, benefit most from PT bandaging, but PT appointments have been llimited due to staffing. Some open areas requiring wound care on right foot/toes. Would benefit from continued PT for lymphedema management to address goals as above. POC discussed with patient and he was in agreement. Physical Therapy Plan Frequency and Duration Frequency of 20 visits Treatment Duration of 12 treatment (weeks) Plan of Care Start 05/21/25 Date Plan of Care End 07/21/25 Date Therapeutic Interventions Therapeutic Home Exercise Program,Lymphedema Management,Manual Interventions Therapy,Patient/Caregiver Education,Self-Care/Home Management,Soft Tissue Mobilization,Taping,Therapeutic Activities,Therapeutic Exercises Modalities Vasopneumatic Devices Next Visit Focus/Plan Next Note Type Treatment Note Next Visit Plan Start session with recumbant elliptical. Further practice with donning aid using Size G Tubigrip as needed. Evaluate any compression garments obtained and problem solve donning and doffing. Continue CDT. Plan of Care Dates Plan of Care Start Date 05/21/25 Plan of Care End Date 07/21/25 Electronically Signed by: Yani Ozuna, PT 05/21/25 0154 If you are in agreement with this Plan of Care, please return a signed and dated copy. I have reviewed this Plan of Care and certify that the skilled therapy services above are required to meet the patient?s needs. Physician Signature Date Printed Name and Credentials Clinical Instructor Signature Printed Name and Credentials
--- NOTE | 2025-05-31 12:39 | PT.OTN ---
Current Diagnoses Lymphedema, not elsewhere classified (05/31/25) Non-pressure chronic ulcer of other part of right foot limited to breakdown of skin (05/31/25) Non-pressure chronic ulcer of other part of left foot limited to breakdown of skin (05/31/25) Physical Therapy Treatment Note PT OP: Lymphedema Lower Extremity Start: 03/27/25 10:27 Freq: Status: Active Protocol: Document 05/31/25 09:01 AB (Rec: 05/31/25 09:13 AB [id number]) Out-Patient Physical Therapy Visit Information Visit Information Visit Type Treatment Note Visit Start Time 09:02 Visit Stop Time 10:52 Visit Number 17 Number of OPERATOR RECEPTIONIST Visits 1 Precautions Precautions fungal infection kota feet; WEAR GLOVES OP-PT Subjective Patient Comments Patient Comments Patient reports put in order for brace. Patient reports he has a box of items, compression socks in car , but does not have gear for donning in box, but has something at home. Patient reports sleeping better since using compression pump at home. Lymphedema Measurements Lower Extremity Circumference Measurements Right MT Heads 28 cm Mid-foot 29.2 cm Medial Malleolus 29.4 cm 10 cm From Medial 28.2 cm Malleolus 20 cm From Medial 40.5 cm Malleolus 30 cm From Medial 48.4 cm Malleolus 40 cm From Medial 55.6 cm Malleolus 50 cm From Medial 63.7 cm Malleolus 60 cm From Medial 66.4 cm Malleolus Knee Joint 58.2 cm Left MT Heads 26.5 cm Mid-foot 29.2 cm Medial Malleolus 29.4 cm 10 cm From Medial 29.2 cm Malleolus 20 cm From Medial 40.5 cm Malleolus 30 cm From Medial 48.4 cm Malleolus 40 cm From Medial 55.6 cm Malleolus 50 cm From Medial 63.7 cm Malleolus 60 cm From Medial 66.4 cm Malleolus Knee Joint 52.8 cm Lymphedema Treatment Manual Lymphatic Drainage Location for kota LE lymphedema, supine LE's elevated Comments drains, highways ant and bilateral LE's anteriorly Lymphedema Wrapping Body Location kota LE's Materials Cramer antibacterial/wicking material and padding between all toes, toe bandages, Coban Lite 2 system applied kota lower legs MTP to knees. Other toe bandaging closer to mid toenail rather than base of toenail Sequential Lymphedema Exercises Location breathing from diaphragm, glutes, heel slide quad sets ankles, scap squeeze Compression Pump Treatment Treatment Location bilateral LE's Pressure Amount ( 45 mmHg) (mmHG) Treatment Comments B LE Physical Therapy Assessment Goals Two Impairment lymphedema life impact scale 50% Short Term Goal (STG Decrease Lymphedema Life Impact Scale to no greater ) than 35% as measure of improved activity tolerance and quality of life. 04/15/25: goal progress 40% 05/21/25:Goal progress 18% STG Duration goal met Jail Goal (LTG) Decrease Lymphedema Life Impact Scale to no greater than 20% as measure of improved activity tolerance and quality of life. 05/21/25: goal met LTG Duration goal met One Impairment lymphedema kota LE's left toes to knee, right toes to mid thigh Short Term Goal (STG Patient will be instructed in all aspects of lymphedema ) self-care to include skin care, elevation, self- massage, self-bandaging/compression options, and lymphedema exercises. 04/15/25: goal met STG Duration goal met Jail Goal (LTG) Decrease patient?s lymphedema to a stable level (no increase or decrease greater than 1 cm over the course of 1 week), patient to be independent with all aspects of self-care for lymphedema, and will obtain appropriate compression garment for lymphedema management in the home. 05/21/25: not fully met; circumferential measurements improved especially now with use of pump daily at home, but wounds have reopened on toes right foot and circumferenctial measurements minimally changed right toes. Is currently consulting with [facility] regarding both compression garments and potentially an ankle brace. LTG Duration 05/22/25 Assessment Summary Assessment Decreased measurements R at MT, mid foot and knee but increased the rest of the LE. L LE decreased measurements mid foot, MT, 60 cm jaleel and knee but all others increased. Patient has garments but bandaging applied this session due to box in vehicle. Physical Therapy Plan Frequency and Duration Frequency of 20 visits Treatment Duration of 12 treatment (weeks) Plan of Care Start 05/21/25 Date Plan of Care End 07/21/25 Date Therapeutic Interventions Therapeutic Home Exercise Program,Lymphedema Management,Manual Interventions Therapy,Patient/Caregiver Education,Self-Care/Home Management,Soft Tissue Mobilization,Taping,Therapeutic Activities,Therapeutic Exercises Modalities Vasopneumatic Devices Next Visit Focus/Plan Next Note Type Treatment Note Next Visit Plan Start session with recumbant elliptical. Further practice with donning aid using Size G Tubigrip as needed. Evaluate any compression garments obtained and problem solve donning and doffing. Continue CDT.
--- NOTE | 2025-06-04 10:43 | PT.OTN ---
Current Diagnoses Lymphedema, not elsewhere classified (06/04/25) Non-pressure chronic ulcer of other part of right foot limited to breakdown of skin (06/04/25) Non-pressure chronic ulcer of other part of left foot limited to breakdown of skin (06/04/25) Physical Therapy Treatment Note PT OP: Lymphedema Lower Extremity Start: 03/27/25 10:27 Freq: Status: Active Protocol: Document 06/04/25 09:13 SAK (Rec: 06/04/25 10:15 SAK Laptop) Out-Patient Physical Therapy Visit Information Visit Information Visit Type Treatment Note Visit Start Time 09:03 Visit Stop Time 10:25 Visit Number 18 Number of RETORT LOADER Visits 0 Precautions Precautions fungal infection kota feet; WEAR GLOVES OP-PT Subjective Patient Comments Patient Comments Patient brings box of compression garments. Hasn't tried putting on yet. No longer going to wound care. Has bandaging from last PT session on. Cardio Equipment Recumbent Elliptical (NuStep) Duration (Minutes) 10 Resistance 3 Other last 5 min no UE's Therapeutic Activity Therapeutic Activity donning/doffing/adjusting compression garments Name kota foot and calf velcro wraps Comments L & R wraps. Max assist first fit with education for technique, then patient donned kota with PT guidance and cues liner socks and wraps. Much effort required with patient fatigued and requiring rest breaks with donning. Lymphedema Treatment Lymphedema Wrapping Body Location kota LE's Materials Toes with toe bandages, then Ready Wrap foot and calf velcro garments kota with patient education for donning, adjusting pressing. Velcro Toe wraps tried but too small for patient toes; called [facility] while patient in session to discuss; Johnna is going to order long foot and calf wraps and custom toe caps. Other toe bandaging closer to mid toenail rather than base of toenail Physical Therapy Assessment Goals Two Impairment lymphedema life impact scale 50% Short Term Goal (STG Decrease Lymphedema Life Impact Scale to no greater ) than 35% as measure of improved activity tolerance and quality of life. 04/15/25: goal progress 40% 05/21/25:Goal progress 18% STG Duration goal met Skilled Nursing Goal (LTG) Decrease Lymphedema Life Impact Scale to no greater than 20% as measure of improved activity tolerance and quality of life. 05/21/25: goal met LTG Duration goal met One Impairment lymphedema kota LE's left toes to knee, right toes to mid thigh Short Term Goal (STG Patient will be instructed in all aspects of lymphedema ) self-care to include skin care, elevation, self- massage, self-bandaging/compression options, and lymphedema exercises. 04/15/25: goal met STG Duration goal met Skilled Nursing Goal (LTG) Decrease patient?s lymphedema to a stable level (no increase or decrease greater than 1 cm over the course of 1 week), patient to be independent with all aspects of self-care for lymphedema, and will obtain appropriate compression garment for lymphedema management in the home. 05/21/25: not fully met; circumferential measurements improved especially now with use of pump daily at home, but wounds have reopened on toes right foot and circumferenctial measurements minimally changed right toes. Is currently consulting with [facility] regarding both compression garments and potentially an ankle brace. LTG Duration 05/22/25 Assessment Summary Assessment Most of session focused on education then patient return demo donning liner socks and L & R compression wrap garments for kota feet and calves. Initially max assist, then patient able to do with cues and guidance. Will need further practice. Recommend pt. return to PT this week if possible for further review and education, guided practice, and to see how responds to the velcro wraps in terms of edema control. Pt. to email PT tomorrow to let me know how things are going, possible visit to PT or RETORT LOADER Wed or Thurs if opening. Physical Therapy Plan Frequency and Duration Frequency of 20 visits Treatment Duration of 12 treatment (weeks) Plan of Care Start 05/21/25 Date Plan of Care End 07/21/25 Date Therapeutic Interventions Therapeutic Home Exercise Program,Lymphedema Management,Manual Interventions Therapy,Patient/Caregiver Education,Self-Care/Home Management,Soft Tissue Mobilization,Taping,Therapeutic Activities,Therapeutic Exercises Modalities Vasopneumatic Devices Next Visit Focus/Plan Next Note Type Treatment Note Next Visit Plan Evaluate response to velcro compression wraps, continue patient education correct donning and adjustments as needed. Continue toe bandaging until gets toe caps. Further use Coban Lite if current wraps not working adequately.
--- NOTE | 2025-06-12 10:46 | PT.OTN ---
Current Diagnoses Lymphedema, not elsewhere classified (06/12/25) Non-pressure chronic ulcer of other part of right foot limited to breakdown of skin (06/12/25) Non-pressure chronic ulcer of other part of left foot limited to breakdown of skin (06/12/25) Physical Therapy Treatment Note PT OP: Lymphedema Lower Extremity Start: 03/27/25 10:27 Freq: Status: Active Protocol: Document 06/12/25 08:16 AB (Rec: 06/12/25 08:48 AB [id number]) Out-Patient Physical Therapy Visit Information Visit Information Visit Type Treatment Note Visit Start Time 08:17 Visit Stop Time 09:47 Visit Number 19 Number of FITTER MECHANIC Visits 1 Precautions Precautions fungal infection kota feet; WEAR GLOVES OP-PT Subjective Patient Comments Patient Comments Patient reports shoe came off when he was driving. Patient asking if wrap for foot can be left off. Patient reports he has been driving since previous session with no issues, but today the shoe came off. Patient attributes to back of shoe folded and reports wanting to put all of wraps on vs putting foot/ankle wrap on at home. Lymphedema Measurements Lower Extremity Circumference Measurements Right MT Heads 30.4 cm Mid-foot 30.7 cm Medial Malleolus 27.6 cm Left MT Heads 26.9 cm Mid-foot 29.4 cm Medial Malleolus 26 cm Lymphedema Treatment Manual Lymphatic Drainage Location for kota LE lymphedema, supine LE's elevated Comments drains, highways ant and bilateral LE's anteriorly Lotion to bilateral feet and LE's Lymphedema Wrapping Body Location kota LE's Materials Toes with toe bandages, then Ready Wrap foot and calf velcro garments kota with patient education for donning, adjusting pressing. Patient able to place all of ready wrap and all but last strap of velcro garment on R LE due to time constraints, Patient require ~1 min frequently to stop and catch breath during donning wraps, VC to stretch wrap prior to placing velcro. Other toe bandaging closer to mid toenail rather than base of toenail Sequential Lymphedema Exercises Location breathing from diaphragm, glutes, heel slide quad sets LAQ, scap squeeze, Duration shoulder rolls Other Other 2nd toe L ant with reddish brown area unable to fully remove gauze, cut most of gauze off, R small red area not open ant between great toe and second toe noted. Physical Therapy Assessment Goals Two Impairment lymphedema life impact scale 50% Short Term Goal (STG Decrease Lymphedema Life Impact Scale to no greater ) than 35% as measure of improved activity tolerance and quality of life. 04/15/25: goal progress 40% 05/21/25:Goal progress 18% STG Duration goal met Prison Goal (LTG) Decrease Lymphedema Life Impact Scale to no greater than 20% as measure of improved activity tolerance and quality of life. 05/21/25: goal met LTG Duration goal met One Impairment lymphedema kota LE's left toes to knee, right toes to mid thigh Short Term Goal (STG Patient will be instructed in all aspects of lymphedema ) self-care to include skin care, elevation, self- massage, self-bandaging/compression options, and lymphedema exercises. 04/15/25: goal met STG Duration goal met Prison Goal (LTG) Decrease patient?s lymphedema to a stable level (no increase or decrease greater than 1 cm over the course of 1 week), patient to be independent with all aspects of self-care for lymphedema, and will obtain appropriate compression garment for lymphedema management in the home. 05/21/25: not fully met; circumferential measurements improved especially now with use of pump daily at home, but wounds have reopened on toes right foot and circumferenctial measurements minimally changed right toes. Is currently consulting with [facility] regarding both compression garments and potentially an ankle brace. LTG Duration 05/22/25 Assessment Summary Assessment Patient able to place all of ready wrap and all but last strap of velcro garment on R LE due to time constraints, Patient require ~1 min frequently to stop and catch breath during donning wraps, Physical Therapy Plan Frequency and Duration Frequency of 20 visits Treatment Duration of 12 treatment (weeks) Plan of Care Start 05/21/25 Date Plan of Care End 07/21/25 Date Next Visit Focus/Plan Next Note Type Treatment Note Next Visit Plan Evaluate response to velcro compression wraps, continue patient education correct donning and adjustments as needed. Continue toe bandaging until gets toe caps. Further use Coban Lite if current wraps not working adequately.
--- NOTE | 2025-06-25 12:24 | PT.OPPN ---
Current Diagnoses Lymphedema, not elsewhere classified (06/25/25) Non-pressure chronic ulcer of other part of right foot limited to breakdown of skin (06/25/25) Non-pressure chronic ulcer of other part of left foot limited to breakdown of skin (06/25/25) Physical Therapy Progress Note PT OP: Lymphedema Lower Extremity Start: 03/27/25 10:27 Freq: Status: Active Protocol: Document 06/25/25 10:52 SAK (Rec: 06/25/25 11:39 SAK Laptop) Out-Patient Physical Therapy Visit Information Visit Information Visit Type Treatment Note Visit Start Time 10:45 Visit Stop Time 11:30 Visit Number 20 Number of BILLING ASSISTANT Visits 0 Precautions Precautions fungal infection kota feet; WEAR GLOVES Current Condition History of Current Condition Onset Date 1 year Current Complaints lymphedema History of Current Got infection right foot, transferred to left foot. Condition Has been seeing wound care first [facility], then ER at [facility] in hospital 5 days due to infection first week of December. Did home health care. Has been seeing [facility] since then. Leg size back to normal, left foot back to normal. Still some weeping between left toes and first and second toe on right. Uses wheelchair due to right knee infection since last fall, had IV medications, inpatient rehab x 6 wks. Can't put weight on right LE , hasn't walked since May 2024. Was using a 4WW for gait prior to stopping walking. 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 Has pneumatic pump feet to knees from [facility], hasn't used except 1x due to bandages so thick he couldn't feel it. 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 Wearing cast shoes with velcro. 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 Prior Treatments and wound care currently [facility] Tests OP-PT Subjective Patient Comments Patient Comments Had the crud last week, that's why cancelled. Has had toe bandages on since last seen in PT. States one night had some pain in foot, almost called 911 but didn 't see any red streaks so let it go. No further pain. Appt with [facility] at 1:00 today for fitting with toe caps. Using his pneumatic pump daily, except when he was sick, didn't feel up to it. Lymphedema Measurements Lower Extremity Circumference Measurements Right MT Heads 29.8 cm Mid-foot 30.3 cm Medial Malleolus 26 cm 10 cm From Medial 26.4 cm Malleolus 20 cm From Medial 36.7 cm Malleolus 30 cm From Medial 47.4 cm Malleolus 40 cm From Medial 51.5 cm Malleolus 50 cm From Medial 62.8 cm Malleolus 60 cm From Medial 63.5 cm Malleolus 70 cm From Medial 67.9 cm Malleolus 80 cm From Medial 75.3 cm Malleolus Knee Joint 58.2 cm Left MT Heads 27.2 cm Mid-foot 29.9 cm Medial Malleolus 26.5 cm 10 cm From Medial 27.9 cm Malleolus 20 cm From Medial 36.7 cm Malleolus 30 cm From Medial 47.4 cm Malleolus 40 cm From Medial 49.4 cm Malleolus 50 cm From Medial 56.5 cm Malleolus 60 cm From Medial 57 cm Malleolus 70 cm From Medial 75 cm Malleolus Knee Joint 56.5 cm Cardio Equipment Recumbent Elliptical (NuStep) Duration (Minutes) 11 Resistance 3 Other last 5 min no UE's Lymphedema Treatment Manual Lymphatic Drainage Location for kota LE lymphedema, supine LE's elevated Comments drains, highways ant and bilateral LE's anteriorly Lotion to bilateral feet and LE's Lymphedema Wrapping Body Location kota LE's Materials Toes with toe bandages, then Ready Wrap foot and calf velcro garments kota with review patient education for donning, adjusting pressure; PT applied today with pt ed for more pressure distal, less as move roximal Other toe bandaging closer to mid toenail rather than base of toenail Sequential Lymphedema Exercises Location breathing from diaphragm, glutes, heel slide quad sets LAQ, scap squeeze, Duration shoulder rolls Comments during measuring and MLD Other Other Education for removing compression at least every 2 days to check skin, adjust pressure as indicated. Advised using compression pump without compression garments on. Ok to not wear compression at night unless notices increase in edema overnight. Physical Therapy Assessment Goals Two Impairment lymphedema life impact scale 50% Short Term Goal (STG Decrease Lymphedema Life Impact Scale to no greater ) than 35% as measure of improved activity tolerance and quality of life. 04/15/25: goal progress 40% 05/21/25:Goal progress 18% STG Duration goal met Home Service Advisor Goal (LTG) Decrease Lymphedema Life Impact Scale to no greater than 20% as measure of improved activity tolerance and quality of life. 05/21/25: goal met LTG Duration goal met One Impairment lymphedema kota LE's left toes to knee, right toes to mid thigh Short Term Goal (STG Patient will be instructed in all aspects of lymphedema ) self-care to include skin care, elevation, self- massage, self-bandaging/compression options, and lymphedema exercises. 04/15/25: goal met STG Duration goal met Home Service Advisor Goal (LTG) Decrease patient?s lymphedema to a stable level (no increase or decrease greater than 1 cm over the course of 1 week), patient to be independent with all aspects of self-care for lymphedema, and will obtain appropriate compression garment for lymphedema management in the home. 05/21/25: not fully met; circumferential measurements improved especially now with use of pump daily at home, but wounds have reopened on toes right foot and circumferenctial measurements minimally changed right toes. Is currently consulting with [facility] regarding both compression garments and potentially an ankle brace. LTG Duration 07/21/25 Progress Towards Goals Progress Towards Progressing Toward Goals Goals Assessment Summary Assessment Patient has not been removing compression; has left on since 06/12/25. Much education today regarding importance of removing at least every 2 days, check skin, adjust straps. Pt educated best is to remove daily, use compression pump without compression garments. States he struggles to put compression on so prefers to leave on but demonstrated good understanding of patient recommendation with rationale. Patient has appointment with [facility] at 1:00 today. Physical Therapy Plan Frequency and Duration Frequency of 20 visits Treatment Duration of 12 treatment (weeks) Plan of Care Start 05/21/25 Date Plan of Care End 07/21/25 Date Therapeutic Interventions Therapeutic Home Exercise Program,Lymphedema Management,Manual Interventions Therapy,Patient/Caregiver Education,Self-Care/Home Management,Soft Tissue Mobilization,Taping,Therapeutic Activities,Therapeutic Exercises Modalities Vasopneumatic Devices Next Visit Focus/Plan Next Note Type Treatment Note Next Visit Plan Assess fit of toe caps. Practice donning and doffing compression. Discuss POC.
--- NOTE | 2025-06-27 12:27 | PT.OTN ---
Current Diagnoses Lymphedema, not elsewhere classified (06/27/25) Non-pressure chronic ulcer of other part of right foot limited to breakdown of skin (06/27/25) Non-pressure chronic ulcer of other part of left foot limited to breakdown of skin (06/27/25) Physical Therapy Treatment Note PT OP: Lymphedema Lower Extremity Start: 03/27/25 10:27 Freq: Status: Active Protocol: Document 06/27/25 10:43 SAK (Rec: 06/27/25 11:59 SAK Laptop) Out-Patient Physical Therapy Visit Information Visit Information Visit Type Treatment Note Visit Start Time 10:45 Visit Stop Time 11:30 Visit Number 21 Number of GUIDE RAIL CLEANER Visits 0 Precautions Precautions fungal infection kota feet; WEAR GLOVEs Current Condition History of Current Condition Onset Date 1 year Current Complaints lymphedema History of Current Got infection right foot, transferred to left foot. Condition Has been seeing wound care first [facility], then ER at [facility] in hospital 5 days due to infection first week of December. Did home health care. Has been seeing [facility] care since then. Leg size back to normal, left foot back to normal. Still some weeping between left toes and first and second toe on right. Uses wheelchair due to right knee infection since last fall, had IV medications, inpatient rehab x 6 wks. Can't put weight on right LE , hasn't walked since May 2024. Was using a 4WW for gait prior to stopping walking. 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 Has pneumatic pump feet to knees from [facility] hasn't used except 1x due to bandages so thick he couldn't feel it. 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 Wearing cast shoes with velcro. 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 Prior Treatments and wound care currently [facility] Tests OP-PT Subjective Patient Comments Patient Comments Was given toe bandages, [facility] applied at [facility]. Got a brace for his right foot, states it helps him with driving. Was rushed this am so didn't wear. Cardio Equipment Recumbent Elliptical (NuStep) Duration (Minutes) 11 Resistance 3 Other last 5 min no UE's Lymphedema Treatment Lymphedema Wrapping Other Trial donning kota toe caps; much difficulty in donning, patient c/o pain especially little toe, not able to fully don onto toes, skin fragile and mild reddening with attempts to don. At this time do not feel at least current toe caps will be able to be used. Discussed options with patient reporting would like to try no bandaging but will elevate more, use pump without compression wraps on, and contact PT if toe swelling increases. PT reinforced prior recommendation to consider caregiver to assist with toe bandaging and/or application of compression. Patient also to call [facility] regarding unable to don toe caps, discuss any further recommendations. Compression Garment Assessment Compression Garment donned toe caps kota feet. Assessment Details Physical Therapy Assessment Goals Two Impairment lymphedema life impact scale 50% Short Term Goal (STG Decrease Lymphedema Life Impact Scale to no greater ) than 35% as measure of improved activity tolerance and quality of life. 04/15/25: goal progress 40% 05/21/25:Goal progress 18% STG Duration goal met Intermediate Goal (LTG) Decrease Lymphedema Life Impact Scale to no greater than 20% as measure of improved activity tolerance and quality of life. 05/21/25: goal met LTG Duration goal met One Impairment lymphedema kota LE's left toes to knee, right toes to mid thigh Short Term Goal (STG Patient will be instructed in all aspects of lymphedema ) self-care to include skin care, elevation, self- massage, self-bandaging/compression options, and lymphedema exercises. 04/15/25: goal met STG Duration goal met Glove Operator Goal (LTG) Decrease patient?s lymphedema to a stable level (no increase or decrease greater than 1 cm over the course of 1 week), patient to be independent with all aspects of self-care for lymphedema, and will obtain appropriate compression garment for lymphedema management in the home. 05/21/25: not fully met; circumferential measurements improved especially now with use of pump daily at home, but wounds have reopened on toes right foot and circumferenctial measurements minimally changed right toes. Is currently consulting with [facility] regarding both compression garments and potentially an ankle brace. LTG Duration 07/21/25 Assessment Summary Assessment Trial donning kota toe caps; much difficulty in donning, patient c/o pain especially little toe, not able to fully don onto toes, skin fragile and mild reddening with attempts to don. At this time do not feel at least current toe caps will be able to be used. Discussed options with patient reporting would like to try no bandaging but will elevate more, use pump without compression wraps on, and contact PT if toe swelling increases. PT reinforced prior recommendation to consider caregiver to assist with toe bandaging and/or application of compression. Patient also to call [facility] regarding unable to don toe caps, discuss any further recommendations. Physical Therapy Plan Frequency and Duration Frequency of 20 visits Treatment Duration of 12 treatment (weeks) Plan of Care Start 05/21/25 Date Plan of Care End 07/21/25 Date Therapeutic Interventions Therapeutic Home Exercise Program,Lymphedema Management,Manual Interventions Therapy,Patient/Caregiver Education,Self-Care/Home Management,Soft Tissue Mobilization,Taping,Therapeutic Activities,Therapeutic Exercises Modalities Vasopneumatic Devices Next Visit Focus/Plan Next Note Type Treatment Note Next Visit Plan ASsess response to no toe bandaging, further problem solving compression as indicated.
--- NOTE | 2025-07-09 13:35 | PT.OPDS ---
Current Diagnoses Lymphedema, not elsewhere classified (07/09/25) Non-pressure chronic ulcer of other part of right foot limited to breakdown of skin (07/09/25) Non-pressure chronic ulcer of other part of left foot limited to breakdown of skin (07/09/25) Visit Care Team Role Provider Type Tom Morales MD Primary Care Provider Non-Staff Specialty: Internal Medicine Address: [address] [place], [address] Email: Nba Aquino MD Attending Provider Physician Referring Provider Specialty: Wound Care Address: [address] [place] [address], [id number] Email: [email or web address] Visit Number Visit Number 22 Discharge Summary PT OP: Lymphedema Lower Extremity Start: 03/27/25 10:27 Freq: Status: Active Protocol: Document 07/09/25 08:08 SAK (Rec: 07/09/25 08:58 SAK Laptop) Out-Patient Physical Therapy Visit Information Visit Information Visit Type Treatment Note Visit Start Time 08:15 Visit Stop Time 09:40 Visit Number 22 Number of ORNAMENTER HAND Visits 0 Precautions Precautions fungal infection kota feet; WEAR GLOVEs Current Condition History of Current Condition Onset Date 1 year Current Complaints lymphedema History of Current Got infection right foot, transferred to left foot. Condition Has been seeing wound care first [facility], then ER at [facility] in hospital 5 days due to infection first week of December. Did home health care. Has been seeing [facility] care since then. Leg size back to normal, left foot back to normal. Still some weeping between left toes and first and second toe on right. Uses wheelchair due to right knee infection since last fall, had IV medications, inpatient rehab x 6 wks. Can't put weight on right LE , hasn't walked since May 2024. Was using a 4WW for gait prior to stopping walking. 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 Has pneumatic pump feet to knees from [facility], hasn't used except 1x due to bandages so thick he couldn't feel it. 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 Wearing cast shoes with velcro. 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 Prior Treatments and wound care currently [facility] Tests OP-PT Subjective Patient Comments Patient Comments Comes to PT in power w/c, has appt after PT and not sure how far he will have to travel. Wearing shoes due to falls when wearing cast shoes. Still having difficulty donning compression socks but able to wear shoes without bandages on. . Pt. has had to have help from neighbor donning socks but can doff. States he emailed PT 2x about how things were going (PT didn't receive). Cardio Equipment Recumbent Elliptical (NuStep) Duration (Minutes) 10 Resistance 3 Other last 5 min no UE's Compression Pump Treatment Treatment Location bilateral LE's Treatment Comments Pt. using pump at home. Physical Therapy Assessment Goals Two Impairment lymphedema life impact scale 50% Short Term Goal (STG Decrease Lymphedema Life Impact Scale to no greater ) than 35% as measure of improved activity tolerance and quality of life. 04/15/25: goal progress 40% 05/21/25:Goal progress 18% STG Duration goal met Client Services Coordinator Goal (LTG) Decrease Lymphedema Life Impact Scale to no greater than 20% as measure of improved activity tolerance and quality of life. 05/21/25: goal met LTG Duration goal met One Impairment lymphedema kota LE's left toes to knee, right toes to mid thigh Short Term Goal (STG Patient will be instructed in all aspects of lymphedema ) self-care to include skin care, elevation, self- massage, self-bandaging/compression options, and lymphedema exercises. 04/15/25: goal met STG Duration goal met Client Services Coordinator Goal (LTG) Decrease patient?s lymphedema to a stable level (no increase or decrease greater than 1 cm over the course of 1 week), patient to be independent with all aspects of self-care for lymphedema, and will obtain appropriate compression garment for lymphedema management in the home. 05/21/25: not fully met; circumferential measurements improved especially now with use of pump daily at home, but wounds have reopened on toes right foot and circumferenctial measurements minimally changed right toes. Is currently consulting with [facility] regarding both compression garments and potentially an ankle brace. LTG Duration 07/21/25 Assessment Summary Assessment Pt. having difficulty with donning socks which are actually only liner socks. Appears wearing shoes providing some foot compression and pt is using compression pump daily which is very helpful. Has neighbor that can help with stockings. Instructed 10- 15 mm Hg compression socks for ease of putting on for better compliance. Advised to obtain long handled bath brush to wash feet; assure clean and dry to prevent skin breakdown. Consider vibtation plate; given video resource. No further PT needs at this time . Worked with pt to understand how to email vs text ( PT work phone doesn't accept text) if any other questions. No further PT needs at this time. Pt. demonstrates good understanding of all self care Physical Therapy Plan Frequency and Duration Frequency of 20 visits Treatment Duration of 12 treatment (weeks) Plan of Care Start 05/21/25 Date Plan of Care End 07/21/25 Date Therapeutic Interventions Therapeutic Home Exercise Program,Lymphedema Management,Manual Interventions Therapy,Patient/Caregiver Education,Self-Care/Home Management,Soft Tissue Mobilization,Taping,Therapeutic Activities,Therapeutic Exercises Modalities Vasopneumatic Devices Discharge Physical Therapy Discharge Reasons Goals Met
== END 2025-07-10 07:46 | disposition home or self-care (01) ==
LOC: PHYS 08:15
PROVIDERS: PCP Internal Medicine; Referring Provider Surgery; Visit Provider Surgery
DX: I89.0 Lymphedema, not elsewhere classified (principal); L97.521 Non-pressure chronic ulcer of other part of left foot limited to breakdown of skin; L97.511 Non-pressure chronic ulcer of other part of right foot limited to breakdown of skin
CPT/HCPCS: 97016; 97110; 97112; 97140; 97163; 97530; 97535